=== PATIENT | female | born 1960 | race Caucasian/White ===

== ENCOUNTER 2017-07-19 11:34 | Emergency (ER) | payer BC ==
--- NOTE | 2017-07-19 12:03 | EDM.PDOC ---
ED HPI GENERAL MEDICAL PROBLEM - General Chief Complaint: Back Pain or Injury Stated Complaint: PAIN LEFT LOWER BACK Time Seen by Provider: 07/19/17 12:02 Source of Information: Reports: Patient - History of Present Illness INITIAL COMMENTS - FREE TEXT/NARRATIVE: HISTORY AND PHYSICAL: History of present illness: [Patient presents with left flank pain that began last night radiating to the pelvis she rates 8 out of 10 times upon arrival to the ER it is improved to a 4 out of 10 and she is in no distress no fever nausea vomiting chills sweats Patient relates these symptoms to a colon cleanse that she has taken which is supposedly known to cause back pain however she has full range of motion of her spine able to touch her toes without discomfort she is tender on the left flank with kidney punch being positive No fever nausea vomiting chills sweats no chest pain shortness breath headache dizziness palpitation no bowel or urine symptoms ] Review of systems: As per history of present illness and below otherwise all systems reviewed and negative. Past medical history: As per history of present illness and as reviewed below otherwise noncontributory. Surgical history: As per history of present illness and as reviewed below otherwise noncontributory. Social history: No reported history of drug or alcohol abuse. Family history: As per history of present illness and as reviewed below otherwise noncontributory. Physical exam: HEENT: Atraumatic, normocephalic, pupils reactive, negative for conjunctival pallor or scleral icterus, mucous membranes moist, throat clear, neck supple, nontender, trachea midline. Lungs: Clear to auscultation, breath sounds equal bilaterally, chest nontender. Heart: S1S2, regular, negative for clicks, rubs, or JVD. Abdomen: Soft, nondistended, nontender. Negative for masses or hepatosplenomegaly. Negative for costovertebral tenderness on the right however on the left kidney punch is positive. Pelvis: Stable nontender. Genitourinary: Deferred. Rectal: Deferred. Extremities: Atraumatic, negative for cords or calf pain. Neurovascular unremarkable. Neuro: Awake, alert, oriented. Cranial nerves II through XII unremarkable. Cerebellum unremarkable. Motor and sensory unremarkable throughout. Exam nonfocal. Diagnostics: []UA CBC CMP troponin amylase lipase, urine cultures pending Therapeutics: []1 L normal saline bolus Zofran 8 mg IV Toradol 30 mg IV Macrobid--empiric Toradol Impression: []Hematuria without other signs of urinary tract infection Left flank pain Definitive disposition and diagnosis as appropriate pending reevaluation and review of above. Left Lower Back Pain Score (Numeric/FACES): 5 - Related Data Allergies Allergy/AdvReac Type Severity Reaction Status Date / Time No Known Allergies Allergy Verified 07/19/17 11:50 Home Meds: Home Meds Esomeprazole Magnesium [Nexium] 40 mg PO DAILY 04/20/16 [History] Venlafaxine HCl [Venlafaxine ER] 75 mg PO DAILY 04/20/16 [History] Past Medical History Cardiovascular History: Reports: High Cholesterol Gastrointestinal History: Reports: GERD Psychiatric History: Reports: Depression - Infectious Disease History Infectious Disease History: Reports: Chicken Pox, Measles, Mumps - Past Surgical History GI Surgical History: Reports: Cholecystectomy Social & Family History - Family History Family Medical History: Noncontributory - Tobacco Use Smoking Status *Q: Never Smoker Second Hand Smoke Exposure: No - Alcohol Use Days Per Week of Alcohol Use: 0 - Recreational Drug Use Recreational Drug Use: No ED ROS GENERAL - Review of Systems Review Of Systems: ROS reveals no pertinent complaints other than HPI. ED EXAM, GENERAL - Physical Exam Exam: See Below Course - Vital Signs Last Recorded V/S: Last Vital Signs Temp 36.8 C 07/19/17 11:47 Pulse 85 07/19/17 14:30 Resp 16 07/19/17 14:30 BP 174/103 H 07/19/17 14:30 Pulse Ox 98 07/19/17 14:30 - Orders/Labs/Meds Orders: Active Orders 24 hr Category Date Time Status CULTURE URINE [RM] Stat Lab 07/19/17 12:05 Received Labs: Laboratory Tests 07/19/17 07/19/17 07/19/17 Range/Units 12:05 12:05 12:30 WBC 5.45 (4.0-11.0) K/uL RBC 4.94 (4.30-5.90) M/uL Hgb 14.4 (12.0-16.0) g/dL Hct 42.0 (36.0-46.0) % MCV 85.0 (80.0-98.0) fL MCH 29.1 (27.0-32.0) pg MCHC 34.3 (31.0-37.0) g/dL RDW Std Deviation 44.0 (28.0-62.0) fl RDW Coeff of Uday 14 (11.0-15.0) % Plt Count 280 (150-400) K/uL MPV 9.80 (7.40-12.00) fL Neut % (Auto) 56.7 (48.0-80.0) % Lymph % (Auto) 32.8 (16.0-40.0) % [place] % (Auto) 8.1 (0.0-15.0) % Eos % (Auto) 1.7 (0.0-7.0) % Baso % (Auto) 0.7 (0.0-1.5) % Neut # (Auto) 3.1 (1.4-5.7) K/uL Lymph # (Auto) 1.8 (0.6-2.4) K/uL [place] # (Auto) 0.4 (0.0-0.8) K/uL Eos # (Auto) 0.1 (0.0-0.7) K/uL Baso # (Auto) 0.0 (0.0-0.1) K/uL Nucleated RBC % 0.0 /100WBC Nucleated RBCs # 0 K/uL Sodium (136-146) mmol/L Potassium (3.5-5.1) mmol/L Chloride (98-110) mmol/L Carbon Dioxide (21-31) mmol/L BUN (6.0-23.0) mg/dL Creatinine (0.6-1.5) mg/dL Est Cr Clr Drug Dosing mL/min Estimated GFR (MDRD) ml/min Glucose (60-110) mg/dL Calcium (8.8-10.8) mg/dL Total Bilirubin (0.1-1.5) mg/dL AST (5-40) IU/L ALT (8-54) IU/L Alkaline Phosphatase (40-150) Troponin I (0.0-0.29) NG/ML Total Protein (6.0-8.0) g/dL Albumin (3.5-5.0) g/dL Globulin (2.0-3.5) g/dL Albumin/Globulin Ratio (1.3-2.8) Amylase (10-90) U/L Lipase (7-80) U/L Urine Color YELLOW Urine Appearance CLEAR Urine pH 5.5 (5.0-8.0) Ur Specific [place] 1.025 (1.001-1.035) Urine Protein NEGATIVE (NEGATIVE) mg/dL Urine Glucose (UA) NEGATIVE (NEGATIVE) mg/dL Urine Ketones NEGATIVE (NEGATIVE) mg/dL Urine Occult Blood TRACE-INTACT (NEGATIVE) Urine Nitrite NEGATIVE (NEGATIVE) Urine Bilirubin NEGATIVE (NEGATIVE) Urine Urobilinogen 0.2 (<2.0) EU/dL Ur Leukocyte Esterase NEGATIVE (NEGATIVE) Urine RBC 0-3 (0-2/HPF) Urine WBC 0-2 (0-5/HPF) Ur Epithelial Cells RARE (NONE-FEW) Urine Bacteria RARE (NEGATIVE) Urine HCG, Qual NEGATIVE (NEGATIVE) 07/19/17 Range/Units 12:30 WBC (4.0-11.0) K/uL RBC (4.30-5.90) M/uL Hgb (12.0-16.0) g/dL Hct (36.0-46.0) % MCV (80.0-98.0) fL MCH (27.0-32.0) pg MCHC (31.0-37.0) g/dL RDW Std Deviation (28.0-62.0) fl RDW Coeff of Uday (11.0-15.0) % Plt Count (150-400) K/uL MPV (7.40-12.00) fL Neut % (Auto) (48.0-80.0) % Lymph % (Auto) (16.0-40.0) % [place] % (Auto) (0.0-15.0) % Eos % (Auto) (0.0-7.0) % Baso % (Auto) (0.0-1.5) % Neut # (Auto) (1.4-5.7) K/uL Lymph # (Auto) (0.6-2.4) K/uL [place] # (Auto) (0.0-0.8) K/uL Eos # (Auto) (0.0-0.7) K/uL Baso # (Auto) (0.0-0.1) K/uL Nucleated RBC % /100WBC Nucleated RBCs # K/uL Sodium 142 (136-146) mmol/L Potassium 3.9 (3.5-5.1) mmol/L Chloride 108 (98-110) mmol/L Carbon Dioxide 24 (21-31) mmol/L BUN 16 (6.0-23.0) mg/dL Creatinine 0.9 (0.6-1.5) mg/dL Est Cr Clr Drug Dosing 57.05 mL/min Estimated GFR (MDRD) > 60.0 ml/min Glucose 96 (60-110) mg/dL Calcium 9.9 (8.8-10.8) mg/dL Total Bilirubin 0.7 (0.1-1.5) mg/dL AST 24 (5-40) IU/L ALT 28 (8-54) IU/L Alkaline Phosphatase 99 (40-150) Troponin I < 0.10 (0.0-0.29) NG/ML Total Protein 7.5 (6.0-8.0) g/dL Albumin 4.4 (3.5-5.0) g/dL Globulin 3.1 (2.0-3.5) g/dL Albumin/Globulin Ratio 1.4 (1.3-2.8) Amylase 45 (10-90) U/L Lipase 18 (7-80) U/L Urine Color Urine Appearance Urine pH (5.0-8.0) Ur Specific [place] (1.001-1.035) Urine Protein (NEGATIVE) mg/dL Urine Glucose (UA) (NEGATIVE) mg/dL Urine Ketones (NEGATIVE) mg/dL Urine Occult Blood (NEGATIVE) Urine Nitrite (NEGATIVE) Urine Bilirubin (NEGATIVE) Urine Urobilinogen (<2.0) EU/dL Ur Leukocyte Esterase (NEGATIVE) Urine RBC (0-2/HPF) Urine WBC (0-5/HPF) Ur Epithelial Cells (NONE-FEW) Urine Bacteria (NEGATIVE) Urine HCG, Qual (NEGATIVE) Meds: Medications Discontinued Medications Generic Name Dose Route Start Last Admin Trade Name Freq PRN Reason Stop Dose Admin Sodium Chloride 1,000 mls @ 999 mls/hr 07/19/17 12:21 07/19/17 12:52 Normal Saline IV 07/19/17 13:21 999 mls/hr STAT ONE Administration Iopamidol 83 ml 07/19/17 13:44 07/19/17 13:45 Isovue Multipack-370 (76%) IVPUSH 07/19/17 13:45 83 ml ONETIME STA Administration Ketorolac Tromethamine 30 mg 07/19/17 12:21 07/19/17 12:52 Toradol IVPUSH 07/19/17 12:22 30 mg ONETIME ONE Administration Ondansetron HCl 8 mg 07/19/17 12:21 07/19/17 12:52 Zofran IVPUSH 07/19/17 12:22 8 mg ONETIME ONE Administration Departure - Departure Time of Disposition: 14:43 Disposition: Home, Self-Care 01 Condition: Good Clinical Impression: Hematuria - Discharge Information Referrals: Ortega Mcmillan MD [Primary Care Provider] - Forms: ED Department Discharge Additional Instructions: Medication as prescribed Macrobid is an antibiotic used for urinary tract infection Toradol his pain medicine to be used only as needed up to 3 times daily for 5 days Return if symptoms persist or worsen or fever nausea vomiting chills sweats despite antibiotic Follow-up with primary care in 2 weeks sooner as needed Urine culture is pending at this time and will likely be available Saturday or Saturday [facility] [address] [place] [address] The following information is given to patients seen in the emergency department who are being discharged to home. This information is to outline your options for follow-up care. We provide all patients seen in our emergency department with a follow-up referral. The need for follow-up, as well as the timing and circumstances, are variable depending upon the specifics of your emergency department visit. If you don't have a primary care physician on staff, we will provide you with a referral. We always advise you to contact your personal physician following an emergency department visit to inform them of the circumstance of the visit and for follow-up with them and/or the need for any referrals to a consulting specialist. The emergency department will also refer you to a specialist when appropriate. This referral assures that you have the opportunity for follow-up care with a specialist. All of these measure are taken in an effort to provide you with optimal care, which includes your follow-up. Under all circumstances we always encourage you to contact your private physician who remains a resource for coordinating your care. When calling for follow-up care, please make the office aware that this follow-up is from your recent emergency room visit. If for any reason you are refused follow-up, please contact the [facility] emergency department at and asked to speak to the emergency department charge nurse. - My Orders Last 24 Hours: My Active Orders 07/19/17 12:05 CULTURE URINE [RM] Stat - Assessment/Plan Last 24 Hours: My Active Orders 07/19/17 12:05 CULTURE URINE [RM] Stat
[2017-07-19] MEDS ORDERED: Sodium Chloride 0.9% 1,000 ML IV ONE (12:21)
[2017-07-19] MEDS ORDERED: Ketorolac 30 MG/ML SDV IVPUSH ONE (12:21)
[2017-07-19] MEDS ORDERED: Ondansetron 4 MG/2 ML SDV IVPUSH ONE (12:21)
[2017-07-19 13:06] LABS: CHLORIDE,CL 108 mmol/L (98-110); SODIUM,NA 142 mmol/L (136-146)
[2017-07-19] MEDS ORDERED: Iopamidol 755 MG/ML 500 ML Multipack Bottle IVPUSH STA (13:44)
--- NOTE | 2017-07-19 14:26 | CT ---
CT of the abdomen and pelvis with and without contrast. HISTORY: Pain TECHNIQUE: Axial CT images were obtained of the abdomen and pelvis before and following administratio n of 83 mL of Isovue-370 in the left antecubital fossa without complication. Coronal and sagittal rec onstructions obtained. FINDINGS: The lung bases are clear, no pleural effusion. There is mild focal fatty infiltration near the falciform ligament. The liver, spleen, and adrenal gl ands otherwise appear normal. Pancreas is unremarkable. Cholecystectomy clips are noted with a mild p rominence of the common hepatic duct. The kidneys enhance and function symmetrically without evidence of obstructive uropathy. The large and small bowel are normal in caliber without evidence of obstruction. No focal pericolonic inflammation or stranding. The appendix is normal. The urinary bladder is normal. No bulky pelvic ly mphadenopathy or free pelvic fluid. No suspicious osseous abnormalities identified. IMPRESSION: 1. No acute findings demonstrated within the abdomen or pelvis.
[2017-07-19 14:44] VITALS: BP 119/68
== END 2017-07-19 15:05 | disposition home or self-care (01) ==
LOC: MW.ED 11:34
DX: R31.9 Hematuria, unspecified (principal); R10.9 Unspecified abdominal pain; Z79.899 Other long term (current) drug therapy
CPT/HCPCS: 36415; 74178; 80053; 81001; 81025; 82150; 83690; 84484; 85025; 87086; 96361; 96374; 96375; 99284; J1885; J2405; J7040; Q9967

== ENCOUNTER 2019-04-10 13:42 | Emergency (ER) | payer BC ==
--- NOTE | 2019-04-10 13:58 | EDM.PDOC ---
ED HPI GENERAL MEDICAL PROBLEM - General Chief Complaint: General Stated Complaint: PELVIC PAIN Time Seen by Provider: 04/10/19 13:58 Source of Information: Reports: Patient History Limitations: Reports: No Limitations - History of Present Illness INITIAL COMMENTS - FREE TEXT/NARRATIVE: HISTORY AND PHYSICAL: History of present illness: Patient is a 58-year-old female presents to the ED with complaint of pelvic pain. She states she's had a nagging pain for a couple of weeks and yesterday became more significant. She went to [facility] and had a normal UA and negative noncontrast abdomen/pelvis CT. Surgical history includes hysterectomy, bilateral oophorectomy, mesh bladder sling, and cholecystectomy. Review of systems: As per history of present illness and below otherwise all systems reviewed and negative. Past medical history: As per history of present illness and as reviewed below otherwise noncontributory. Surgical history: As per history of present illness and as reviewed below otherwise noncontributory. Social history: No reported history of drug or alcohol abuse. Family history: As per history of present illness and as reviewed below otherwise noncontributory. Physical exam: General: Patient sitting comfortably in no acute distress and nontoxic appearing HEENT: Atraumatic, normocephalic, pupils reactive, negative for conjunctival pallor or scleral icterus, mucous membranes moist, throat clear, neck supple, nontender, trachea midline. No meningeal signs. Lungs: Clear to auscultation, breath sounds equal bilaterally, chest nontender. Heart: S1S2, regular, negative for clicks, rubs, or overt murmur. Abdomen: Suprapubic and RLQ tenderness to palpation. Soft, nondistended. Negative for masses or hepatosplenomegaly. Negative for costovertebral tenderness. No rigidity, rebound, guarding. Pelvis: Stable nontender. Genitourinary: Deferred. Rectal: Deferred. Extremities: Atraumatic, negative for cords or calf pain. Neurovascular unremarkable.No pain with flexion, extension, internal/external rotation of the hip Neuro: Awake, alert, oriented. Cranial nerves II through XII unremarkable. Cerebellum unremarkable. Motor and sensory unremarkable throughout. Exam nonfocal. Notes: Diagnostics: CBC, CMP, UA, abdomen/pelvis ct w/o contrast, pelvic US Therapeutics: Toradol IV Prescriptions: tramadol Impression: abdominal pain Plan: alternate Tylenol and ibuprofen as needed.may take tramadol as needed for severe pain, do not take while driving as it may make you drowsy Follow up with primary care provider Return to ED as needed as discussed Definitive disposition and diagnosis as appropriate pending reevaluation and review of above. right groin area Pain Score (Numeric/FACES): 3 - Related Data Allergies Allergy/AdvReac Type Severity Reaction Status Date / Time No Known Allergies Allergy Verified 07/19/17 11:50 Home Meds: Home Meds Esomeprazole Magnesium [Nexium] 40 mg PO DAILY 04/20/16 [History] Venlafaxine HCl [Venlafaxine ER] 75 mg PO DAILY 04/20/16 [History] Simvastatin [Zocor] 40 mg PO BEDTIME 04/10/19 [History] Past Medical History Cardiovascular History: Reports: High Cholesterol Gastrointestinal History: Reports: GERD Other Genitourinary History: bladder surgery Psychiatric History: Reports: Depression - Infectious Disease History Infectious Disease History: Reports: Chicken Pox, Mononucleosis - Past Surgical History GI Surgical History: Reports: Cholecystectomy Female Surgical History: Reports: Hysterectomy Social & Family History - Family History Family Medical History: Noncontributory - Tobacco Use Smoking Status *Q: Never Smoker - Caffeine Use Caffeine Use: Reports: Coffee, Tea - Recreational Drug Use Recreational Drug Use: No ED ROS GENERAL - Review of Systems Review Of Systems: ROS reveals no pertinent complaints other than HPI. ED EXAM, GENERAL - Physical Exam Exam: See Below (see dictation) Course - Vital Signs Last Recorded V/S: Last Vital Signs Temp 97.3 F 04/10/19 13:50 Pulse 85 04/10/19 13:50 Resp 18 04/10/19 13:50 BP 136/77 04/10/19 13:50 Pulse Ox 95 04/10/19 13:50 - Orders/Labs/Meds Orders: Active Orders 24 hr Category Date Time Status Sodium Chloride 0.9% [Saline Flush] Med 04/10/19 14:10 Active 10 ml FLUSH ASDIRECTED PRN Sodium Chloride 0.9% [Saline Flush] Med 04/10/19 14:10 Active 2.5 ml FLUSH ASDIRECTED PRN Saline Lock Insert [OM.PC] Stat Oth 04/10/19 14:10 Ordered Medication Orders Sodium Chloride (Saline Flush) 10 ml FLUSH ASDIRECTED PRN PRN Reason: Keep Vein Open Sodium Chloride (Saline Flush) 2.5 ml FLUSH ASDIRECTED PRN PRN Reason: Keep Vein Open Labs: Laboratory Tests 04/10/19 04/10/19 04/10/19 Range/Units 14:20 14:20 16:25 WBC 7.73 (4.0-11.0) K/uL RBC 4.76 (4.30-5.90) M/uL Hgb 11.2 L (12.0-16.0) g/dL Hct 36.5 (36.0-46.0) % MCV 76.7 L (80.0-98.0) fL MCH 23.5 L (27.0-32.0) pg MCHC 30.7 L (31.0-37.0) g/dL RDW Std Deviation 46.7 (28.0-62.0) fl RDW Coeff of Uday 17 H (11.0-15.0) % Plt Count 271 (150-400) K/uL MPV 10.00 (7.40-12.00) fL Neut % (Auto) 67.1 (48.0-80.0) % Lymph % (Auto) 19.7 (16.0-40.0) % [place] % (Auto) 10.6 (0.0-15.0) % Eos % (Auto) 2.2 (0.0-7.0) % Baso % (Auto) 0.4 (0.0-1.5) % Neut # (Auto) 5.2 (1.4-5.7) K/uL Lymph # (Auto) 1.5 (0.6-2.4) K/uL [place] # (Auto) 0.8 (0.0-0.8) K/uL Eos # (Auto) 0.2 (0.0-0.7) K/uL Baso # (Auto) 0.0 (0.0-0.1) K/uL Nucleated RBC % 0.0 /100WBC Nucleated RBCs # 0 K/uL Sodium 141 (136-145) mmol/L Potassium 4.2 (3.5-5.1) mmol/L Chloride 104 (98-107) mmol/L Carbon Dioxide 27.5 (21.0-32.0) mmol/L BUN 17 (7.0-18.0) mg/dL Creatinine 0.8 (0.6-1.0) mg/dL Est Cr Clr Drug Dosing 63.41 mL/min Estimated GFR (MDRD) > 60.0 ml/min Glucose 101 (74-106) mg/dL Calcium 9.4 (8.5-10.1) mg/dL Total Bilirubin 0.4 (0.2-1.0) mg/dL AST 31 (15-37) IU/L ALT 54 (14-63) IU/L Alkaline Phosphatase 126 H (46-116) U/L Total Protein 7.6 (6.4-8.2) g/dL Albumin 3.8 (3.4-5.0) g/dL Globulin 3.8 (2.6-4.0) g/dL Albumin/Globulin Ratio 1.0 (0.9-1.6) Urine Color YELLOW Urine Appearance CLEAR Urine pH 5.0 (5.0-8.0) Ur Specific [place] 1.015 (1.001-1.035) Urine Protein NEGATIVE (NEGATIVE) mg/dL Urine Glucose (UA) NEGATIVE (NEGATIVE) mg/dL Urine Ketones NEGATIVE (NEGATIVE) mg/dL Urine Occult Blood NEGATIVE (NEGATIVE) Urine Nitrite NEGATIVE (NEGATIVE) Urine Bilirubin NEGATIVE (NEGATIVE) Urine Urobilinogen 0.2 (<2.0) EU/dL Ur Leukocyte Esterase NEGATIVE (NEGATIVE) Meds: Medications Generic Name Dose Route Start Last Admin Trade Name Freq PRN Reason Stop Dose Admin Sodium Chloride 10 ml 04/10/19 14:10 Saline Flush FLUSH ASDIRECTED PRN Keep Vein Open Sodium Chloride 2.5 ml 04/10/19 14:10 Saline Flush FLUSH ASDIRECTED PRN Keep Vein Open Discontinued Medications Generic Name Dose Route Start Last Admin Trade Name Freq PRN Reason Stop Dose Admin Ketorolac Tromethamine 30 mg 04/10/19 14:10 04/10/19 14:24 Toradol IVPUSH 04/10/19 14:11 30 mg ONETIME ONE Administration Departure - Departure Time of Disposition: 18:56 Disposition: Home, Self-Care 01 Condition: Good Clinical Impression: Abdominal pain - Discharge Information Referrals: PCP,None [Primary Care Provider] - Forms: ED Department Discharge Additional Instructions: The following information is given to patients seen in the emergency department who are being discharged to home. This information is to outline your options for follow-up care. We provide all patients seen in our emergency department with a follow-up referral. The need for follow-up, as well as the timing and circumstances, are variable depending upon the specifics of your emergency department visit. If you don't have a primary care physician on staff, we will provide you with a referral. We always advise you to contact your personal physician following an emergency department visit to inform them of the circumstance of the visit and for follow-up with them and/or the need for any referrals to a consulting specialist. The emergency department will also refer you to a specialist when appropriate. This referral assures that you have the opportunity for follow-up care with a specialist. All of these measure are taken in an effort to provide you with optimal care, which includes your follow-up. Under all circumstances we always encourage you to contact your private physician who remains a resource for coordinating your care. When calling for follow-up care, please make the office aware that this follow-up is from your recent emergency room visit. If for any reason you are refused follow-up, please contact the [facility] Emergency Department at and asked to speak to the emergency department charge nurse. [facility] [address] [place] [address] [address] alternate Tylenol and ibuprofen as needed.may take tramadol as needed for severe pain, do not take while driving as it may make you drowsy Follow up with primary care provider Return to ED as needed as discussed - My Orders Last 24 Hours: My Active Orders 04/10/19 14:10 Sodium Chloride 0.9% [Saline Flush] 10 ml FLUSH ASDIRECTED PRN Sodium Chloride 0.9% [Saline Flush] 2.5 ml FLUSH ASDIRECTED PRN Saline Lock Insert [OM.PC] Stat - Assessment/Plan Last 24 Hours: My Active Orders 07/26/19 14:10 Sodium Chloride 0.9% [Saline Flush] 10 ml FLUSH ASDIRECTED PRN Sodium Chloride 0.9% [Saline Flush] 2.5 ml FLUSH ASDIRECTED PRN Saline Lock Insert [OM.PC] Stat
[2019-04-10] MEDS ORDERED: Ketorolac 30 MG/ML SDV IVPUSH ONE (14:10)
[2019-04-10] MEDS ORDERED: Sodium Chloride 0.9% 10 ML Syringe FLUSH PRN (14:10)
[2019-04-10] MEDS ORDERED: Sodium Chloride 0.9% 2.5 ML Syringe FLUSH PRN (14:10)
[2019-04-10 14:52] LABS: CHLORIDE,CL 104 mmol/L (98-107); SODIUM,NA 141 mmol/L (136-145)
--- NOTE | 2019-04-10 16:27 | CT ---
INDICATION: Right lower quadrant pain TECHNIQUE: CT abdomen and pelvis acquired with 100 cc Isovue 370 IV contrast. COMPARISON: July 19, 2017 FINDINGS: Lower chest: Unremarkable. Liver: Hepatic steatosis. Spleen: Unremarkable. Pancreas: Unremarkable. Gallbladder and bile ducts: S/p cholecystectomy. Adrenal glands: Unremarkable. Kidneys: Unremarkable. GI tract: Unremarkable. Appendix is not visualized but no inflammatory changes are seen in the pericecal region. The terminal ileum is normal. Vascular structures: Unremarkable. Lymph nodes: Unremarkable. Miscellaneous: Unremarkable. No free air or significant free fluid. Pelvic Organs: Status post hysterectomy. Bones: Unremarkable for age. IMPRESSION: No etiology seen to explain right lower quadrant pain. Note that the appendix is not visualized but no inflammatory changes are seen in the right lower quadrant. Hepatic steatosis. Status post cholecystectomy and hysterectomy. Please note that all CT scans at this facility use dose modulation, iterative reconstruction, and/or weight-based dosing when appropriate to reduce radiation dose to as low as reasonably achievable. Dictated by Tatyana Whitt MD @ Apr 10 2019 4:18PM Signed by Dr. Tatyana Whitt @ Apr 10 2019 4:25PM
--- NOTE | 2019-04-10 18:50 | US ---
Indication: Pain in the right groin and pubic symphysis Technique: Multiple sonographic images of the inguinal and parasymphyseal soft tissues. Comparison: A CT scan from the same date Findings: No discrete soft tissue abnormality or fluid collection are seen in the symphyseal or right inguinal regions. No discrete hernia is visualized. Impression: No discrete abnormality seen. Dictated by Noe Mcelroy MD @ 04/10/2019 6:47:07 PM Dictated by: Noe Mcelroy MD @ 04/10/2019 18:48:51 (Electronically Signed)
[2019-04-10 19:12] VITALS: BP 135/79
== END 2019-04-10 19:10 | disposition home or self-care (01) ==
LOC: MW.ED 13:42
DX: R10.31 Right lower quadrant pain (principal); R10.2 Pelvic and perineal pain; F32.9 Major depressive disorder, single episode, unspecified; Z79.899 Other long term (current) drug therapy; Z90.49 Acquired absence of other specified parts of digestive tract; Z90.710 Acquired absence of both cervix and uterus
CPT/HCPCS: 36415; 74177; 76856; 80053; 81003; 85025; 96374; 99284; J1885

== ENCOUNTER 2019-04-11 18:30 | Emergency (ER) | payer BC ==
[2019-04-11] MEDS ORDERED: Sodium Chloride 0.9% 1,000 ML IV ONE ×2 (18:58→19:19)
[2019-04-11] MEDS ORDERED: Ondansetron 4 MG/2 ML SDV IVPUSH ONE (19:19)
[2019-04-11] MEDS ORDERED: Morphine 2 MG/ML Syringe IVPUSH ONE (19:19)
[2019-04-11 19:28] LABS: CHLORIDE,CL 104 mmol/L (98-107); SODIUM,NA 141 mmol/L (136-145)
--- NOTE | 2019-04-11 20:01 | EDM.PDOC ---
ED HPI GENERAL MEDICAL PROBLEM - General Chief Complaint: Abdominal Pain Stated Complaint: ABDOMINAL PAIN Time Seen by Provider: 04/11/19 19:04 - History of Present Illness INITIAL COMMENTS - FREE TEXT/NARRATIVE: HISTORY AND PHYSICAL: History of present illness: Patient is 58-year-old white female with past medical history includes prior cholecystectomy and hysterectomy was been seen multiple times for right groin pain and has had diagnostics including ultrasound and CT of her abdomen etiology remains unclear vital signs on multiple visits as well as routine labs including UA have been nondiagnostic. He denies trauma or other concern on arrival tonight her pain is worse with movement of that right hip. Review of systems: As per history of present illness and below otherwise all systems reviewed and negative. Past medical history: As per history of present illness and as reviewed below otherwise noncontributory. Surgical history: As per history of present illness and as reviewed below otherwise noncontributory. Social history: No reported history of drug or alcohol abuse. Family history: As per history of present illness and as reviewed below otherwise noncontributory. Physical exam: HEENT: Atraumatic, normocephalic, pupils reactive, negative for conjunctival pallor or scleral icterus, mucous membranes moist, throat clear, neck supple, nontender, trachea midline. Lungs: Clear to auscultation, breath sounds equal bilaterally, chest nontender. Heart: S1S2, regular, negative for clicks, rubs, or JVD. Abdomen: Soft, nondistended, nontender. Negative for masses or hepatosplenomegaly. Negative for costovertebral tenderness. Pelvis: Stable nontender. Genitourinary: Deferred. Rectal: Deferred. Extremities: Patient has significant pain with flexion-extension internal and external rotation of the right hip there is no erythema or warmth" neurovascular exam is unremarkable Neuro: Awake, alert, oriented. Cranial nerves II through XII unremarkable. Cerebellum unremarkable. Motor and sensory unremarkable throughout. Exam nonfocal. Diagnostics: CBC CMP UA ESR CRP CT right hip with contrast Therapeutics: Saline 1 L bolus morphine sulfate 2 mg IV Zofran Impression: #1 chronic intermittent right groin/hip pain etiology to be determined Definitive disposition and diagnosis as appropriate pending reevaluation and review of above. Groin Pain Score (Numeric/FACES): 10 - Related Data Allergies Allergy/AdvReac Type Severity Reaction Status Date / Time No Known Allergies Allergy Verified 04/11/19 18:45 Home Meds: Home Meds Esomeprazole Magnesium [Nexium] 40 mg PO DAILY 04/20/16 [History] Venlafaxine HCl [Venlafaxine ER] 75 mg PO DAILY 04/20/16 [History] Simvastatin [Zocor] 40 mg PO BEDTIME 04/10/19 [History] Past Medical History Cardiovascular History: Reports: High Cholesterol Gastrointestinal History: Reports: GERD Other Genitourinary History: bladder surgery Psychiatric History: Reports: Depression - Infectious Disease History Infectious Disease History: Reports: Chicken Pox, Mononucleosis - Past Surgical History GI Surgical History: Reports: Cholecystectomy Female Surgical History: Reports: Hysterectomy Social & Family History - Family History Family Medical History: Noncontributory - Tobacco Use Smoking Status *Q: Never Smoker - Caffeine Use Caffeine Use: Reports: Coffee, Tea - Recreational Drug Use Recreational Drug Use: No ED ROS GENERAL - Review of Systems Review Of Systems: ROS reveals no pertinent complaints other than HPI. ED EXAM, GENERAL - Physical Exam Exam: See Below (See dictation) Course - Vital Signs Last Recorded V/S: Last Vital Signs Temp 36.1 C 04/11/19 18:43 Pulse 78 04/11/19 21:15 Resp 18 04/11/19 21:15 BP 129/76 04/11/19 21:15 Pulse Ox 97 04/11/19 21:15 - Orders/Labs/Meds Orders: Active Orders 24 hr Category Date Time Status CULTURE BLOOD [BC] Stat Lab 04/11/19 19:33 Received CULTURE BLOOD [BC] Stat Lab 04/11/19 19:33 Received Blood Culture x2 Reflex Set [OM.PC] Stat Oth 04/11/19 19:16 Ordered Labs: Laboratory Tests 04/11/19 04/11/19 04/11/19 Range/Units 14:20 14:20 18:45 WBC 8.66 (4.0-11.0) K/uL RBC 5.01 (4.30-5.90) M/uL Hgb 12.0 (12.0-16.0) g/dL Hct 38.6 (36.0-46.0) % MCV 77.0 L (80.0-98.0) fL MCH 24.0 L (27.0-32.0) pg MCHC 31.1 (31.0-37.0) g/dL RDW Std Deviation 47.0 (28.0-62.0) fl RDW Coeff of Uday 17 H (11.0-15.0) % Plt Count 345 (150-400) K/uL MPV 10.30 (7.40-12.00) fL Neut % (Auto) 53.7 (48.0-80.0) % Lymph % (Auto) 33.9 (16.0-40.0) % Kemper % (Auto) 9.8 (0.0-15.0) % Eos % (Auto) 2.0 (0.0-7.0) % Baso % (Auto) 0.6 (0.0-1.5) % Neut # (Auto) 4.7 (1.4-5.7) K/uL Lymph # (Auto) 2.9 H (0.6-2.4) K/uL Kemper # (Auto) 0.9 H (0.0-0.8) K/uL Eos # (Auto) 0.2 (0.0-0.7) K/uL Baso # (Auto) 0.1 (0.0-0.1) K/uL Nucleated RBC % 0.0 /100WBC Nucleated RBCs # 0 K/uL ESR 17 (0-29) mm/hr Sodium (136-145) mmol/L Potassium (3.5-5.1) mmol/L Chloride (98-107) mmol/L Carbon Dioxide (21.0-32.0) mmol/L BUN (7.0-18.0) mg/dL Creatinine (0.6-1.0) mg/dL Est Cr Clr Drug Dosing mL/min Estimated GFR (MDRD) ml/min Glucose (74-106) mg/dL Calcium (8.5-10.1) mg/dL Total Bilirubin (0.2-1.0) mg/dL AST (15-37) IU/L ALT (14-63) IU/L Alkaline Phosphatase (46-116) U/L C-Reactive Protein 1.80 H (0.00-0.90) mg/dL Total Protein (6.4-8.2) g/dL Albumin (3.4-5.0) g/dL Globulin (2.6-4.0) g/dL Albumin/Globulin Ratio (0.9-1.6) 04/11/19 Range/Units 18:45 WBC (4.0-11.0) K/uL RBC (4.30-5.90) M/uL Hgb (12.0-16.0) g/dL Hct (36.0-46.0) % MCV (80.0-98.0) fL MCH (27.0-32.0) pg MCHC (31.0-37.0) g/dL RDW Std Deviation (28.0-62.0) fl RDW Coeff of Uday (11.0-15.0) % Plt Count (150-400) K/uL MPV (7.40-12.00) fL Neut % (Auto) (48.0-80.0) % Lymph % (Auto) (16.0-40.0) % Kemper % (Auto) (0.0-15.0) % Eos % (Auto) (0.0-7.0) % Baso % (Auto) (0.0-1.5) % Neut # (Auto) (1.4-5.7) K/uL Lymph # (Auto) (0.6-2.4) K/uL Kemper # (Auto) (0.0-0.8) K/uL Eos # (Auto) (0.0-0.7) K/uL Baso # (Auto) (0.0-0.1) K/uL Nucleated RBC % /100WBC Nucleated RBCs # K/uL ESR (0-29) mm/hr Sodium 141 (136-145) mmol/L Potassium 3.6 (3.5-5.1) mmol/L Chloride 104 (98-107) mmol/L Carbon Dioxide 26.3 (21.0-32.0) mmol/L BUN 15 (7.0-18.0) mg/dL Creatinine 0.9 (0.6-1.0) mg/dL Est Cr Clr Drug Dosing 53.89 mL/min Estimated GFR (MDRD) > 60.0 ml/min Glucose 161 H (74-106) mg/dL Calcium 8.9 (8.5-10.1) mg/dL Total Bilirubin 0.2 (0.2-1.0) mg/dL AST 25 (15-37) IU/L ALT 45 (14-63) IU/L Alkaline Phosphatase 142 H (46-116) U/L C-Reactive Protein (0.00-0.90) mg/dL Total Protein 7.9 (6.4-8.2) g/dL Albumin 3.8 (3.4-5.0) g/dL Globulin 4.1 H (2.6-4.0) g/dL Albumin/Globulin Ratio 0.9 (0.9-1.6) Meds: Medications Discontinued Medications Generic Name Dose Route Start Last Admin Trade Name Freq PRN Reason Stop Dose Admin Sodium Chloride 1,000 mls @ 999 mls/hr 04/11/19 18:58 04/11/19 19:18 Normal Saline IV 04/11/19 19:58 999 mls/hr STAT ONE Administration Sodium Chloride 1,000 mls @ 999 mls/hr 04/11/19 19:19 04/11/19 19:38 Normal Saline IV 04/11/19 20:19 Not Given STAT ONE Iopamidol 100 ml 04/11/19 20:22 04/11/19 21:10 Isovue-370 (76%) IVPUSH 04/11/19 20:23 100 ml ONETIME ONE Administration Morphine Sulfate 2 mg 04/11/19 19:19 04/11/19 19:30 Morphine IVPUSH 04/11/19 19:20 2 mg ONETIME ONE Administration Ondansetron HCl 4 mg 04/11/19 19:19 04/11/19 19:29 Zofran IVPUSH 04/11/19 19:20 4 mg ONETIME ONE Administration Departure - Departure Time of Disposition: 22:14 Disposition: Home, Self-Care 01 Condition: Good Clinical Impression: Groin pain, chronic, right, Hip pain - Discharge Information Referrals: Ortega Mcmillan MD [Primary Care Provider] - Forms: ED Department Discharge Additional Instructions: The following information is given to patients seen in the emergency department who are being discharged to home. This information is to outline your options for follow-up care. We provide all patients seen in our emergency department with a follow-up referral. The need for follow-up, as well as the timing and circumstances, are variable depending upon the specifics of your emergency department visit. If you don't have a primary care physician on staff, we will provide you with a referral. We always advise you to contact your personal physician following an emergency department visit to inform them of the circumstance of the visit and for follow-up with them and/or the need for any referrals to a consulting specialist. The emergency department will also refer you to a specialist when appropriate. This referral assures that you have the opportunity for followup care with a specialist. All of these measure are taken in an effort to provide you with optimal care, which includes your followup. Under all circumstances we always encourage you to contact your private physician who remains a resource for coordinating your care. When calling for followup care, please make the office aware that this follow-up is from your recent emergency room visit. If for any reason you are refused follow-up, please contact the [facility] emergency department at and asked to speak to the emergency department charge nurse. [facility] [address], [address] [place] [address] Follow-up primary medical doctor as discussed call to schedule routine appointment with orthopedic surgery above continue current medications and return as needed as discussed - My Orders Last 24 Hours: My Active Orders 04/11/19 19:16 Blood Culture x2 Reflex Set [OM.PC] Stat 04/11/19 19:33 CULTURE BLOOD [BC] Stat CULTURE BLOOD [BC] Stat - Assessment/Plan Last 24 Hours: My Active Orders 04/11/19 19:16 Blood Culture x2 Reflex Set [OM.PC] Stat 04/11/19 19:33 CULTURE BLOOD [BC] Stat CULTURE BLOOD [BC] Stat
[2019-04-11] MEDS ORDERED: Iopamidol 755 Mg/ML 100 ML Bottle IVPUSH ONE (20:22)
--- NOTE | 2019-04-11 21:51 | CT ---
Indication: Right hip and groin pain Technique: A right hip CT scan with intravenous contrast. 100 mL of Isovue 370 administered. Comparison: A CT scan of the abdomen and pelvis dated 04/10/2019 Findings: There is no evidence of an acute fracture or dislocation. There is a sclerotic lesion in the right femoral lesser trochanter which could represent a bone island. Small sclerotic foci in the sacral ala adjacent to the sacroiliac joints could be reactive. There is mild ill-defined sclerosis in the right pubis at the symphysis which may be reactive as well. No significant right hip joint effusion is seen. No abnormal regional enhancement is noted. There is a partially imaged fat attenuation structure in the medial left thigh musculature suggestive of a lipoma, although incompletely evaluated. Mildly decreased attenuation in the right superficial femoral vein could be related to contrast mixing. Within the pelvis, there is dependent increased density within the urinary bladder which may be related to residual excreted contrast from a prior administration. Post hysterectomy changes are seen. Impression: No evidence of an acute fracture or dislocation. No significant right hip joint effusion or abnormal regional enhancement seen. A partially imaged lipomatous lesion in the right thigh musculature, probably a lipoma, although incompletely evaluated. Follow-up, as clinically indicated. Increased dependent density within the bladder could be related to residual excreted contrast from a prior administration, however correlate with urinalysis. Decreased attenuation in the right SFV could be related to contrast mixing. If clinically indicated, consider sonographic evaluation. Dictated by Noe Mcelroy MD @ 04/11/2019 9:48:52 PM Please note that all CT scans at this facility use dose modulation, iterative reconstruction, and/or weight-based dosing when appropriate to reduce radiation dose to as low as reasonably achievable. Dictated by: Noe Mcelroy MD @ 04/11/2019 21:48:57 (Electronically Signed)
[2019-04-11 23:13] VITALS: BP 143/74
== END 2019-04-11 22:56 | disposition home or self-care (01) ==
LOC: MW.ED 18:30
DX: R10.31 Right lower quadrant pain (principal); M25.551 Pain in right hip; E78.00 Pure hypercholesterolemia, unspecified; G89.29 Other chronic pain; K21.9 Gastro-esophageal reflux disease without esophagitis; F32.9 Major depressive disorder, single episode, unspecified; Z79.899 Other long term (current) drug therapy
CPT/HCPCS: 36415; 73701; 80053; 85025; 85652; 86140; 87040; 96361; 96374; 96375; 99284; J2270; J2405; J7040; Q9967

== ENCOUNTER 2019-04-12 12:52 | Observation (INO) | payer BC ==
[2019-04-12] MEDS ORDERED: Sodium Chloride 0.9% 1,000 ML IV ONE (13:05)
[2019-04-12] MEDS ORDERED: Ondansetron 4 MG/2 ML SDV IVPUSH ONE (13:05)
--- NOTE | 2019-04-12 13:13 | EDM.PDOC ---
ED HPI GENERAL MEDICAL PROBLEM - General Chief Complaint: General Stated Complaint: INFECTION IN BLOOD Time Seen by Provider: 04/12/19 13:08 Source of Information: Reports: Patient History Limitations: Reports: No Limitations - History of Present Illness INITIAL COMMENTS - FREE TEXT/NARRATIVE: HISTORY AND PHYSICAL: History of present illness: Patient is a 58-year-old female who presents to the emergency room complaints of right groin and pelvic pain. She has been seen twice previous in our ER and had lab work, ultrasound and CT imaging without any definitive results. Blood cultures were obtained on 04/10/19 which grew gram-positive cocci in pairs. Patient was called this morning to see how she was feeling, she states she still had moderate to severe pain. She was encouraged to come to the emergency room for reevaluation and possible admission. Review of systems: As per history of present illness and below otherwise all systems reviewed and negative. Past medical history: As per history of present illness and as reviewed below otherwise noncontributory. Surgical history: As per history of present illness and as reviewed below otherwise noncontributory. Social history: See social history for further information Family history: As per history of present illness and as reviewed below otherwise noncontributory. Physical exam: General: Well-developed and well-nourished 58-year-old female. Alert and oriented. Nontoxic appearing and in no acute distress. HEENT: Atraumatic, normocephalic, pupils equal and reactive bilaterally, negative for conjunctival pallor or scleral icterus, mucous membranes moist, trachea midline. No drooling or trismus noted. No meningeal signs. No hot potato voice noted. Lungs: Clear to auscultation, breath sounds equal bilaterally, chest nontender. Heart: S1S2, regular rate and rhythm without overt murmur Abdomen: Soft, nondistended, nontender. Negative for masses. Negative for costovertebral tenderness. Pelvis: Stable nontender. Pain with palpation to left groin area. Skin: Intact, warm, dry. No lesions or rashes noted. Extremities: Atraumatic, moves all extremities per self without difficulty or deficits, negative for cords or calf pain. Neurovascular unremarkable. Neuro: Awake, alert, oriented. Cranial nerves II through XII unremarkable. Cerebellum unremarkable. Motor and sensory unremarkable throughout. Exam nonfocal. Notes: Patient states when she lays still and does not involve and any movement or activity the pain is manageable. As soon as she becomes active or ambulatory the pain is sharp and severe. She has been taking the prescribed tramadol and does get some relief with this. She denies any new injury, trauma or complaints since her previous 2 visits in the emergency room. He discussed the blood cultures being positive and keeping her for admission for further evaluation of her complaint today. She is agreeable and offers no further questions or concerns at this time. Currently declines the need for any pain medications, we' ll continue to monitor. Diagnostics: CBC, CMP, blood cultures 2 Therapeutics: IV fluid, Zofran, Rocephin Impression: Positive blood cultures Right hip pain Plan: Observation admission [facility] Definitive disposition and diagnosis as appropriate pending reevaluation and review of above. Right Groin Pain Score (Numeric/FACES): 2 - Related Data Allergies Allergy/AdvReac Type Severity Reaction Status Date / Time No Known Allergies Allergy Verified 04/12/19 12:56 Home Meds: Home Meds Esomeprazole Magnesium [Nexium] 40 mg PO DAILY 04/20/16 [History] Venlafaxine HCl [Venlafaxine ER] 75 mg PO DAILY 04/20/16 [History] Simvastatin [Zocor] 40 mg PO BEDTIME 04/10/19 [History] Past Medical History Cardiovascular History: Reports: High Cholesterol Gastrointestinal History: Reports: GERD Other Genitourinary History: bladder surgery Psychiatric History: Reports: Depression - Infectious Disease History Infectious Disease History: Reports: Chicken Pox, Mumps - Past Surgical History GI Surgical History: Reports: Cholecystectomy Female Surgical History: Reports: Hysterectomy Social & Family History - Family History Family Medical History: Noncontributory - Tobacco Use Smoking Status *Q: Never Smoker - Caffeine Use Caffeine Use: Reports: Coffee, Tea - Recreational Drug Use Recreational Drug Use: No ED ROS GENERAL - Review of Systems Review Of Systems: ROS reveals no pertinent complaints other than HPI. ED EXAM, GENERAL - Physical Exam Exam: See Below (See dictation) Course - Vital Signs Last Recorded V/S: Last Vital Signs Temp 97.1 F 04/12/19 12:57 Pulse 92 04/12/19 12:57 Resp 17 04/12/19 12:57 BP 122/69 04/12/19 12:57 Pulse Ox 90 L 04/12/19 12:57 - Orders/Labs/Meds Orders: Active Orders 24 hr Category Date Time Status CBC WITH AUTO DIFF [HEME] Stat Lab 04/12/19 13:04 Ordered COMPREHENSIVE METABOLIC PN,CMP [CHEM] Stat Lab 04/12/19 13:04 Ordered CULTURE BLOOD [BC] Stat Lab 04/12/19 13:04 Ordered CULTURE BLOOD [BC] Stat Lab 04/12/19 13:04 Ordered LACTIC ACID,WHOLE BLOOD [BG] Stat Lab 04/12/19 13:13 Ordered Sodium Chloride 0.9% [Normal Saline] 1,000 ml Med 04/12/19 13:05 Active IV STAT Blood Culture x2 Reflex Set [OM.PC] Stat Oth 04/12/19 13:04 Ordered Medication Orders Sodium Chloride (Normal Saline) 1,000 mls @ 125 mls/hr IV STAT ONE Stop: 04/12/19 21:04 Meds: Medications Generic Name Dose Route Start Last Admin Trade Name Freq PRN Reason Stop Dose Admin Sodium Chloride 1,000 mls @ 125 mls/hr 04/12/19 13:05 Normal Saline IV 04/12/19 21:04 STAT ONE Discontinued Medications Generic Name Dose Route Start Last Admin Trade Name Freq PRN Reason Stop Dose Admin Ondansetron HCl 4 mg 04/12/19 13:05 Zofran IVPUSH 04/12/19 13:06 ONETIME ONE Departure - Departure Time of Disposition: 13:18 Disposition: Refer to Observation Clinical Impression: Positive blood cultures, Right groin pain - Discharge Information Referrals: PCP,Unknown [Primary Care Provider] - Forms: ED Department Discharge - My Orders Last 24 Hours: My Active Orders 04/12/19 13:04 CBC WITH AUTO DIFF [HEME] Stat COMPREHENSIVE METABOLIC PN,CMP [CHEM] Stat CULTURE BLOOD [BC] Stat CULTURE BLOOD [BC] Stat Blood Culture x2 Reflex Set [OM.PC] Stat 04/12/19 13:05 Sodium Chloride 0.9% [Normal Saline] 1,000 ml IV STAT 04/12/19 13:13 LACTIC ACID,WHOLE BLOOD [BG] Stat - Assessment/Plan Last 24 Hours: My Active Orders 04/12/19 13:04 CBC WITH AUTO DIFF [HEME] Stat COMPREHENSIVE METABOLIC PN,CMP [CHEM] Stat CULTURE BLOOD [BC] Stat CULTURE BLOOD [BC] Stat Blood Culture x2 Reflex Set [OM.PC] Stat 04/12/19 13:05 Sodium Chloride 0.9% [Normal Saline] 1,000 ml IV STAT 04/12/19 13:13 LACTIC ACID,WHOLE BLOOD [BG] Stat
[2019-04-12] MEDS ORDERED: cefTRIAXone 1 GM in Premix Bag 1 BAG IV ONE (13:26)
[2019-04-12] MEDS ORDERED: Tenecteplase 50 MG Kit IV STA (13:27)
[2019-04-12 13:54] LABS: CARBON DIOXIDE,CO2 27.6 mmol/L (21.0-32.0); POTASSIUM,K 3.8 mmol/L (3.5-5.1)
--- NOTE | 2019-04-12 15:07 | PCM.HP ---
H&P History of Present Illness - General Date of Service: 04/12/19 Admit Problem/Dx: Hip pain, gram-positive cocci in chains bacteremia. - History of Present Illness Initial Comments - Free Text/Narative: The patient is a 58-year-old lady who had presented to the emergency department on April 10, 2019 out of concern for severe right hip pain. The patient at that time had blood cultures that were taken and was found to have gram-positive cocci in chains. The patient then was called back to the emergency department and was admitted for IV antibiotics. The patient has denied any dizziness or lightheadedness. No fever or chills. The patient says that she has severe to moderate pain in her right hip which is worsened by hip adduction. Interestingly , patient says that she is having pain that radiate down into her groin and in the area above her pubis bone. The patient 8 years ago had a bladder lift with surgical mesh. The patient has denied any urinary symptoms. Onset of Symptoms: Reports: Gradual Duration of Symptoms: Reports: Day(s): Location: Reports: Lower Extremity, Right Quality: Reports: Sharp, Stabbing, Throbbing Severity: Moderate Improves with: Reports: Medication Worsens with: Reports: Medication Context: Denies: Trauma Associated Symptoms: Reports: No Other Symptoms Right Groin Pain Score (Numeric/FACES): 2 - Related Data Allergies/Adverse Reactions: Allergies Allergy/AdvReac Type Severity Reaction Status Date / Time No Known Allergies Allergy Verified 04/12/19 12:56 Home Medications: Home Meds Esomeprazole Magnesium [Nexium] 40 mg PO DAILY 04/20/16 [History] Venlafaxine HCl [Venlafaxine ER] 75 mg PO DAILY 04/20/16 [History] Simvastatin [Zocor] 40 mg PO BEDTIME 04/10/19 [History] Past Medical History HEENT History: Reports: None Cardiovascular History: Reports: High Cholesterol Respiratory History: Reports: None Gastrointestinal History: Reports: GERD Other Genitourinary History: bladder surgery Musculoskeletal History: Reports: None Neurological History: Reports: None Psychiatric History: Reports: Depression Endocrine/Metabolic History: Reports: None Hematologic History: Reports: None Immunologic History: Reports: None Oncologic (Cancer) History: Reports: None Dermatologic History: Reports: None - Infectious Disease History Infectious Disease History: Reports: Chicken Pox, Mumps - Past Surgical History GI Surgical History: Reports: Cholecystectomy Female Surgical History: Reports: Hysterectomy Social & Family History - Family History Family Medical History: Noncontributory - Tobacco Use Smoking Status *Q: Never Smoker - Caffeine Use Caffeine Use: Reports: Coffee, Tea - Recreational Drug Use Recreational Drug Use: No - Living Situation & Occupation Living situation: Reports: , with Spouse Occupation: Retired H&P Review of Systems - Review of Systems: Review Of Systems: See Below General: Reports: No Symptoms HEENT: Reports: No Symptoms Pulmonary: Reports: No Symptoms Cardiovascular: Reports: No Symptoms Gastrointestinal: Reports: No Symptoms Genitourinary: Reports: No Symptoms Musculoskeletal: Reports: Joint Pain Skin: Reports: No Symptoms Psychiatric: Reports: No Symptoms Neurological: Reports: No Symptoms Hematologic/Lymphatic: Reports: No Symptoms Immunologic: Reports: No Symptoms Exam - Exam Exam: See Below - Vital Signs Vital Signs: Last Vital Signs Temp 36.3 C 04/12/19 14:22 Pulse 86 04/12/19 14:22 Resp 17 04/12/19 12:57 BP 137/71 04/12/19 14:22 Pulse Ox 88 L 04/12/19 14:22 Weight: 79.379 kg - Exam Quality Assessment: No: Supplemental Oxygen General: Alert, Oriented, Cooperative HEENT: Conjunctiva Clear, EACs Clear, EOMI, Hearing Intact, Mucosa Moist & [place] , Pupils Equal, PERRLA Neck: Supple, Trachea Midline Lungs: Clear to Auscultation, Normal Respiratory Effort Cardiovascular: Regular Rate, Regular Rhythm GI/Abdominal Exam: Normal Bowel Sounds, Soft, No Distention, Tender (Suprapubic , right groin area) Back Exam: Normal Inspection, Full Range of Motion Extremities: Normal Inspection, No Pedal Edema Skin: Warm, Dry, Intact Neurological: Cranial Nerves Intact Neuro Extensive - Motor, Sensory, Reflexes: CN II-XII Intact Psychiatric: Alert, Normal Affect, Normal Mood - Patient Data Lab Results Last 24 hrs: Laboratory Results - last 24 hr 04/12/19 04/12/19 04/12/19 Range/Units 13:15 13:15 13:15 WBC 5.68 (4.0-11.0) K/uL RBC 4.55 (4.30-5.90) M/uL Hgb 10.8 L (12.0-16.0) g/dL Hct 35.6 L (36.0-46.0) % MCV 78.2 L (80.0-98.0) fL MCH 23.7 L (27.0-32.0) pg MCHC 30.3 L (31.0-37.0) g/dL RDW Std Deviation 48.1 (28.0-62.0) fl RDW Coeff of Uday 17 H (11.0-15.0) % Plt Count 299 (150-400) K/uL MPV 10.00 (7.40-12.00) fL Neut % (Auto) 53.0 (48.0-80.0) % Lymph % (Auto) 35.7 (16.0-40.0) % [place] % (Auto) 8.3 (0.0-15.0) % Eos % (Auto) 2.5 (0.0-7.0) % Baso % (Auto) 0.5 (0.0-1.5) % Neut # (Auto) 3.0 (1.4-5.7) K/uL Lymph # (Auto) 2.0 (0.6-2.4) K/uL [place] # (Auto) 0.5 (0.0-0.8) K/uL Eos # (Auto) 0.1 (0.0-0.7) K/uL Baso # (Auto) 0.0 (0.0-0.1) K/uL Nucleated RBC % 0.0 /100WBC Nucleated RBCs # 0 K/uL INR Lactate 1.6 (0.20-2.00) mmol/L Sodium 141 (136-145) mmol/L Potassium 3.8 (3.5-5.1) mmol/L Chloride 106 (98-107) mmol/L Carbon Dioxide 27.6 (21.0-32.0) mmol/L BUN 12 (7.0-18.0) mg/dL Creatinine 1.0 (0.6-1.0) mg/dL Est Cr Clr Drug Dosing 50.73 mL/min Estimated GFR (MDRD) 56.9 ml/min Glucose 134 H (74-106) mg/dL Calcium 9.1 (8.5-10.1) mg/dL Total Bilirubin 0.3 (0.2-1.0) mg/dL AST 28 (15-37) IU/L ALT 43 (14-63) IU/L Alkaline Phosphatase 125 H (46-116) U/L Total Protein 7.3 (6.4-8.2) g/dL Albumin 3.7 (3.4-5.0) g/dL Globulin 3.6 (2.6-4.0) g/dL Albumin/Globulin Ratio 1.0 (0.9-1.6) 04/12/19 Range/Units 13:15 WBC (4.0-11.0) K/uL RBC (4.30-5.90) M/uL Hgb (12.0-16.0) g/dL Hct (36.0-46.0) % MCV (80.0-98.0) fL MCH (27.0-32.0) pg MCHC (31.0-37.0) g/dL RDW Std Deviation (28.0-62.0) fl RDW Coeff of Uday (11.0-15.0) % Plt Count (150-400) K/uL MPV (7.40-12.00) fL Neut % (Auto) (48.0-80.0) % Lymph % (Auto) (16.0-40.0) % [place] % (Auto) (0.0-15.0) % Eos % (Auto) (0.0-7.0) % Baso % (Auto) (0.0-1.5) % Neut # (Auto) (1.4-5.7) K/uL Lymph # (Auto) (0.6-2.4) K/uL [place] # (Auto) (0.0-0.8) K/uL Eos # (Auto) (0.0-0.7) K/uL Baso # (Auto) (0.0-0.1) K/uL Nucleated RBC % /100WBC Nucleated RBCs # K/uL INR Cancelled Lactate (0.20-2.00) mmol/L Sodium (136-145) mmol/L Potassium (3.5-5.1) mmol/L Chloride (98-107) mmol/L Carbon Dioxide (21.0-32.0) mmol/L BUN (7.0-18.0) mg/dL Creatinine (0.6-1.0) mg/dL Est Cr Clr Drug Dosing mL/min Estimated GFR (MDRD) ml/min Glucose (74-106) mg/dL Calcium (8.5-10.1) mg/dL Total Bilirubin (0.2-1.0) mg/dL AST (15-37) IU/L ALT (14-63) IU/L Alkaline Phosphatase (46-116) U/L Total Protein (6.4-8.2) g/dL Albumin (3.4-5.0) g/dL Globulin (2.6-4.0) g/dL Albumin/Globulin Ratio (0.9-1.6) Result Diagrams: 04/12/19 13:15 04/12/19 13:15 - Problem List (1) Gram-positive bacteremia SNOMED Code(s): 902697784914 ICD Code: R78.81 - BACTEREMIA Status: Acute Priority: High Current Visit: Yes (2) Right groin pain SNOMED Code(s): 54560698370016070 ICD Code: R10.31 - RIGHT LOWER QUADRANT PAIN Status: Acute Priority: High Current Visit: Yes Problem List Initiated/Reviewed/Updated: Yes Orders Last 24hrs: Active Orders 24 hr Category Date Time Status EKG Documentation Completion [RC] STAT Care 04/12/19 13:27 Inactive CULTURE BLOOD [BC] Stat Lab 04/12/19 13:15 Received CULTURE BLOOD [BC] Stat Lab 04/12/19 14:00 Received Sodium Chloride 0.9% [Normal Saline] 1,000 ml Med 04/12/19 13:05 Active IV STAT Blood Culture x2 Reflex Set [OM.PC] Stat Oth 04/12/19 13:04 Ordered Medication Orders Sodium Chloride (Normal Saline) 1,000 mls @ 125 mls/hr IV STAT ONE Stop: 04/12/19 21:04 Last Admin: 04/12/19 13:58 Dose: 125 mls/hr Assessment/Plan Comment:: The patient is a 58-year-old lady who had been admitted secondary to gram- positive bacteremia. Until the cultures come back with culture and sensitivity I 'll keep the patient on Rocephin 1 g IV daily. The patient will also be kept on regular diet as tolerated. I've ordered repeat laboratory testing in the morning. Physical therapy will also be ordered. The patient has had extensive workup with regards to location of the pain and causes the right hip pain. Interestingly, the patient had bladder mesh placed 8 years ago. PTOT is been ordered for the patient. We'll consider consultation with [facility] after cultures have returned. The patient will also have DVT prophylaxis with the use of 30 mg of Lovenox subcutaneous daily. She has been encouraged to ambulate.
[2019-04-12] MEDS ORDERED: Ondansetron 4 MG/2 ML SDV IVPUSH PRN (15:08)
[2019-04-12] MEDS: Sodium Chloride 0.9% 1,000 ML IV SCH (15:49)
[2019-04-12] MEDS: Enoxaparin 40 MG/0.4 ML Syringe SUBCUT SCH (15:50)
[2019-04-12] MEDS: oxyCODONE 5 MG Tab PO PRN ×2 (16:02→20:17)
[2019-04-12] MEDS: Simvastatin 40 MG Tab PO SCH (20:17)
[2019-04-12] MEDS: Acetaminophen 325 MG Tab PO PRN (20:18)
[2019-04-13] MEDS: Acetaminophen 325 MG Tab PO PRN ×6 (00:35→22:49)
[2019-04-13] MEDS: Sodium Chloride 0.9% 1,000 ML IV SCH ×3 (00:36→23:57)
[2019-04-13] MEDS: oxyCODONE 5 MG Tab PO PRN ×6 (00:36→22:51)
[2019-04-13 06:54] LABS: BLOOD UREA NITROGEN,BUN 11 mg/dL (7.0-18.0); CARBON DIOXIDE,CO2 27.1 mmol/L (21.0-32.0); CHLORIDE,CL 108 mmol/L (98-107); GLUCOSE RANDOM 98 mg/dL (74-106); POTASSIUM,K 4.1 mmol/L (3.5-5.1); SODIUM,NA 142 mmol/L (136-145)
[2019-04-13] MEDS: Omeprazole 20 MG Cap.CR PO SCH (07:22)
[2019-04-13] MEDS: Oxybutynin 5 MG Tab PO SCH ×2 (09:49→20:49)
[2019-04-13] MEDS: Venlafaxine 75 MG Cap.ER PO SCH (09:49)
--- NOTE | 2019-04-13 13:41 | PCM.PN ---
<Lio Morris - Last Filed: 04/13/19 13:46> - General Info Date of Service: 04/13/19 Subjective Update: 58 y/o female presenting with pelvic pain. Admitted after he was found to have 1 positive blood culture for gram + cocci in pair. Has remained afebrile. No nausea or vomiting. She still complains of pelvic pain. No dysuria. - Patient Data Vitals - Most Recent: Last Vital Signs Temp 36.6 C 04/13/19 11:00 Pulse 80 04/13/19 11:00 Resp 16 04/13/19 11:00 BP 124/40 L 04/13/19 11:00 Pulse Ox 91 L 04/13/19 11:00 Weight - Most Recent: 79.379 kg I&O - Last 24 Hours: Intake & Output 04/12/19 04/13/19 04/13/19 22:59 06:59 14:59 Intake Total 500 1613 Output Total 500 1500 Balance 0 113 Lab Results Last 24 Hours: Laboratory Results - last 24 hr 04/12/19 04/12/19 04/12/19 Range/Units 13:15 13:15 13:15 WBC (4.0-11.0) K/uL RBC (4.30-5.90) M/uL Hgb (12.0-16.0) g/dL Hct (36.0-46.0) % MCV (80.0-98.0) fL MCH (27.0-32.0) pg MCHC (31.0-37.0) g/dL RDW Std Deviation (28.0-62.0) fl RDW Coeff of Uday (11.0-15.0) % Plt Count (150-400) K/uL MPV (7.40-12.00) fL Neut % (Auto) (48.0-80.0) % Lymph % (Auto) (16.0-40.0) % [place] % (Auto) (0.0-15.0) % Eos % (Auto) (0.0-7.0) % Baso % (Auto) (0.0-1.5) % Neut # (Auto) (1.4-5.7) K/uL Lymph # (Auto) (0.6-2.4) K/uL [place] # (Auto) (0.0-0.8) K/uL Eos # (Auto) (0.0-0.7) K/uL Baso # (Auto) (0.0-0.1) K/uL Nucleated RBC % /100WBC Nucleated RBCs # K/uL ESR 22 (0-29) mm/hr INR Cancelled Sodium 141 (136-145) mmol/L Potassium 3.8 (3.5-5.1) mmol/L Chloride 106 (98-107) mmol/L Carbon Dioxide 27.6 (21.0-32.0) mmol/L BUN 12 (7.0-18.0) mg/dL Creatinine 1.0 (0.6-1.0) mg/dL Est Cr Clr Drug Dosing 50.73 mL/min Estimated GFR (MDRD) 56.9 ml/min Glucose 134 H (74-106) mg/dL Calcium 9.1 (8.5-10.1) mg/dL Total Bilirubin 0.3 (0.2-1.0) mg/dL AST 28 (15-37) IU/L ALT 43 (14-63) IU/L Alkaline Phosphatase 125 H (46-116) U/L Total Protein 7.3 (6.4-8.2) g/dL Albumin 3.7 (3.4-5.0) g/dL Globulin 3.6 (2.6-4.0) g/dL Albumin/Globulin Ratio 1.0 (0.9-1.6) 04/13/19 04/13/19 Range/Units 05:48 05:48 WBC 5.48 (4.0-11.0) K/uL RBC 4.11 L (4.30-5.90) M/uL Hgb 9.7 L (12.0-16.0) g/dL Hct 32.4 L (36.0-46.0) % MCV 78.8 L (80.0-98.0) fL MCH 23.6 L (27.0-32.0) pg MCHC 29.9 L (31.0-37.0) g/dL RDW Std Deviation 49.0 (28.0-62.0) fl RDW Coeff of Uday 17 H (11.0-15.0) % Plt Count 250 (150-400) K/uL MPV 10.70 (7.40-12.00) fL Neut % (Auto) 50.1 (48.0-80.0) % Lymph % (Auto) 35.0 (16.0-40.0) % [place] % (Auto) 10.9 (0.0-15.0) % Eos % (Auto) 3.5 (0.0-7.0) % Baso % (Auto) 0.5 (0.0-1.5) % Neut # (Auto) 2.7 (1.4-5.7) K/uL Lymph # (Auto) 1.9 (0.6-2.4) K/uL [place] # (Auto) 0.6 (0.0-0.8) K/uL Eos # (Auto) 0.2 (0.0-0.7) K/uL Baso # (Auto) 0.0 (0.0-0.1) K/uL Nucleated RBC % 0.0 /100WBC Nucleated RBCs # 0 K/uL ESR (0-29) mm/hr INR Sodium 142 (136-145) mmol/L Potassium 4.1 (3.5-5.1) mmol/L Chloride 108 H (98-107) mmol/L Carbon Dioxide 27.1 (21.0-32.0) mmol/L BUN 11 (7.0-18.0) mg/dL Creatinine 0.8 (0.6-1.0) mg/dL Est Cr Clr Drug Dosing 63.41 mL/min Estimated GFR (MDRD) > 60.0 ml/min Glucose 98 (74-106) mg/dL Calcium 9.0 (8.5-10.1) mg/dL Total Bilirubin 0.3 (0.2-1.0) mg/dL AST 26 (15-37) IU/L ALT 36 (14-63) IU/L Alkaline Phosphatase 110 (46-116) U/L Total Protein 6.5 (6.4-8.2) g/dL Albumin 3.1 L (3.4-5.0) g/dL Globulin 3.4 (2.6-4.0) g/dL Albumin/Globulin Ratio 0.9 (0.9-1.6) Domenic Results Last 24 Hours: Microbiology 04/12/19 13:15 Aerobic Blood Culture - Preliminary Blood - Venous NO GROWTH AFTER 1 DAY Anaerobic Blood Culture - Preliminary NO GROWTH AFTER 1 DAY Med Orders - Current: Current Medications Acetaminophen (Tylenol) 650 mg PO Q4H PRN PRN Reason: Pain (Mild 1-3)/fever Last Admin: 04/13/19 09:48 Dose: 650 mg Enoxaparin Sodium (Lovenox) 40 mg SUBCUT Q24H [facility] Last Admin: 04/12/19 15:50 Dose: 40 mg Sodium Chloride (Normal Saline) 1,000 mls @ 75 mls/hr IV ASDIRECTED [facility] Last Admin: 04/13/19 07:21 Dose: 75 mls/hr Ceftriaxone Sodium/Dextrose 1 (gm/ Premix) 50 mls @ 100 mls/hr IV Q24H [facility] Omeprazole (Omeprazole) 40 mg PO ACBREAKFAST [facility] Last Admin: 04/13/19 07:22 Dose: 40 mg Ondansetron HCl (Zofran) 4 mg IVPUSH Q6H PRN PRN Reason: Nausea/Vomiting Oxybutynin Chloride (Oxybutynin) 5 mg PO BID [facility] Last Admin: 04/13/19 09:49 Dose: 5 mg Oxycodone HCl (Oxycodone) 5 mg PO Q4H PRN PRN Reason: Pain (moderate 4-6) Last Admin: 04/13/19 09:47 Dose: 5 mg Simvastatin (Zocor) 40 mg PO BEDTIME [facility] Last Admin: 04/12/19 20:17 Dose: 40 mg Venlafaxine HCl (Effexor Xr) 75 mg PO DAILY [facility] Last Admin: 04/13/19 09:49 Dose: 75 mg Discontinued Medications Sodium Chloride (Normal Saline) 1,000 mls @ 125 mls/hr IV STAT ONE Stop: 04/12/19 21:04 Last Admin: 04/12/19 13:58 Dose: 125 mls/hr Ceftriaxone Sodium/Dextrose 1 (gm/ Premix) 50 mls @ 100 mls/hr IV ONETIME ONE Stop: 04/12/19 13:55 Last Admin: 04/12/19 13:58 Dose: 100 mls/hr Ondansetron HCl (Zofran) 4 mg IVPUSH ONETIME ONE Stop: 04/12/19 13:06 Last Admin: 04/12/19 13:58 Dose: 4 mg Tenecteplase (Tnkase) 50 mg IV NOW STA; Protocol Stop: 04/12/19 13:28 Last Admin: 04/12/19 13:32 Dose: Not Given - Exam General: Alert, Oriented, Cooperative, No Acute Distress Cardiovascular: Regular Rate, Regular Rhythm GI/Abdominal Exam: Normal Bowel Sounds, Soft, Other (mildly tender in pelvic area. no lumps or masses noticed.) Extremities: Normal Inspection Skin: Warm, Dry - Problem List Review Problem List Initiated/Reviewed/Updated: Yes - My Orders Last 24 Hours: My Active Orders 04/13/19 09:00 Oxybutynin 5 mg PO BID 04/13/19 13:23 Pelvis Non OB Ltd [US] Routine 04/13/19 13:40 UA RFX DOMENIC AND CULT IF INDIC [URIN] Stat - Plan Plan:: A: 1. gram + cocci in pairs bacteremia 2. pelvic pain 3. microcytic anemia P: 1. Bacteremia- new blood culture sets have remained negative. 2. Pelvic pain- unsure what is causing her pelvic pain. Recent imaging was negative. Possibly bladder spasms. Will order oxybutynin and see if it helps. Order U/A. 3. Microcytic anemia- Iron studies, stool occult. Dispo: likely dc tomorrow. <Pancho Jones - Last Filed: 04/13/19 16:48> - General Info Admission Dx/Problem (Free Text): I have seen and examined the patient independently of Dr. Yvonne MD. I have reviewed and agree with the plan of care as outlined by Dr. Russell and agree with the plan as outlined by this resident. I have discussed the case with the resident. Please see orders. - Patient Data Vitals - Most Recent: Last Vital Signs Temp 36.6 C 04/13/19 11:00 Pulse 80 04/13/19 11:00 Resp 16 04/13/19 11:00 BP 124/40 L 04/13/19 11:00 Pulse Ox 91 L 04/13/19 11:00 I&O - Last 24 Hours: Intake & Output 04/13/19 04/13/19 04/13/19 06:59 14:59 22:59 Intake Total 1613 Output Total 1500 Balance 113 Lab Results Last 24 Hours: Laboratory Results - last 24 hr 04/13/19 04/13/19 04/13/19 Range/Units 05:48 05:48 13:49 WBC 5.48 (4.0-11.0) K/uL RBC 4.11 L (4.30-5.90) M/uL Hgb 9.7 L (12.0-16.0) g/dL Hct 32.4 L (36.0-46.0) % MCV 78.8 L (80.0-98.0) fL MCH 23.6 L (27.0-32.0) pg MCHC 29.9 L (31.0-37.0) g/dL RDW Std Deviation 49.0 (28.0-62.0) fl RDW Coeff of Uday 17 H (11.0-15.0) % Plt Count 250 (150-400) K/uL MPV 10.70 (7.40-12.00) fL Neut % (Auto) 50.1 (48.0-80.0) % Lymph % (Auto) 35.0 (16.0-40.0) % [place] % (Auto) 10.9 (0.0-15.0) % Eos % (Auto) 3.5 (0.0-7.0) % Baso % (Auto) 0.5 (0.0-1.5) % Neut # (Auto) 2.7 (1.4-5.7) K/uL Lymph # (Auto) 1.9 (0.6-2.4) K/uL [place] # (Auto) 0.6 (0.0-0.8) K/uL Eos # (Auto) 0.2 (0.0-0.7) K/uL Baso # (Auto) 0.0 (0.0-0.1) K/uL Nucleated RBC % 0.0 /100WBC Nucleated RBCs # 0 K/uL Sodium 142 (136-145) mmol/L Potassium 4.1 (3.5-5.1) mmol/L Chloride 108 H (98-107) mmol/L Carbon Dioxide 27.1 (21.0-32.0) mmol/L BUN 11 (7.0-18.0) mg/dL Creatinine 0.8 (0.6-1.0) mg/dL Est Cr Clr Drug Dosing 63.41 mL/min Estimated GFR (MDRD) > 60.0 ml/min Glucose 98 (74-106) mg/dL Calcium 9.0 (8.5-10.1) mg/dL Iron 22 L (50-175) ug/dL TIBC 256 (250-450) ug/dL % Saturation 8.59 L (20-55) % Ferritin 141 (8-252) ng/mL Total Bilirubin 0.3 (0.2-1.0) mg/dL AST 26 (15-37) IU/L ALT 36 (14-63) IU/L Alkaline Phosphatase 110 (46-116) U/L Total Protein 6.5 (6.4-8.2) g/dL Albumin 3.1 L (3.4-5.0) g/dL Globulin 3.4 (2.6-4.0) g/dL Albumin/Globulin Ratio 0.9 (0.9-1.6) Vitamin B12 (193-986) pg/mL Folate (8.60-58.90) ng/mL Urine Color Urine Appearance Urine pH (5.0-8.0) Ur Specific [place] (1.001-1.035) Urine Protein (NEGATIVE) mg/dL Urine Glucose (UA) (NEGATIVE) mg/dL Urine Ketones (NEGATIVE) mg/dL Urine Occult Blood (NEGATIVE) Urine Nitrite (NEGATIVE) Urine Bilirubin (NEGATIVE) Urine Urobilinogen (<2.0) EU/dL Ur Leukocyte Esterase (NEGATIVE) 04/13/19 04/13/19 Range/Units 13:49 14:38 WBC (4.0-11.0) K/uL RBC (4.30-5.90) M/uL Hgb (12.0-16.0) g/dL Hct (36.0-46.0) % MCV (80.0-98.0) fL MCH (27.0-32.0) pg MCHC (31.0-37.0) g/dL RDW Std Deviation (28.0-62.0) fl RDW Coeff of Uday (11.0-15.0) % Plt Count (150-400) K/uL MPV (7.40-12.00) fL Neut % (Auto) (48.0-80.0) % Lymph % (Auto) (16.0-40.0) % [place] % (Auto) (0.0-15.0) % Eos % (Auto) (0.0-7.0) % Baso % (Auto) (0.0-1.5) % Neut # (Auto) (1.4-5.7) K/uL Lymph # (Auto) (0.6-2.4) K/uL [place] # (Auto) (0.0-0.8) K/uL Eos # (Auto) (0.0-0.7) K/uL Baso # (Auto) (0.0-0.1) K/uL Nucleated RBC % /100WBC Nucleated RBCs # K/uL Sodium (136-145) mmol/L Potassium (3.5-5.1) mmol/L Chloride (98-107) mmol/L Carbon Dioxide (21.0-32.0) mmol/L BUN (7.0-18.0) mg/dL Creatinine (0.6-1.0) mg/dL Est Cr Clr Drug Dosing mL/min Estimated GFR (MDRD) ml/min Glucose (74-106) mg/dL Calcium (8.5-10.1) mg/dL Iron (50-175) ug/dL TIBC (250-450) ug/dL % Saturation (20-55) % Ferritin (8-252) ng/mL Total Bilirubin (0.2-1.0) mg/dL AST (15-37) IU/L ALT (14-63) IU/L Alkaline Phosphatase (46-116) U/L Total Protein (6.4-8.2) g/dL Albumin (3.4-5.0) g/dL Globulin (2.6-4.0) g/dL Albumin/Globulin Ratio (0.9-1.6) Vitamin B12 312 (193-986) pg/mL Folate 5.30 L (8.60-58.90) ng/mL Urine Color YELLOW Urine Appearance CLEAR Urine pH 5.5 (5.0-8.0) Ur Specific [place] 1.010 (1.001-1.035) Urine Protein NEGATIVE (NEGATIVE) mg/dL Urine Glucose (UA) NEGATIVE (NEGATIVE) mg/dL Urine Ketones NEGATIVE (NEGATIVE) mg/dL Urine Occult Blood NEGATIVE (NEGATIVE) Urine Nitrite NEGATIVE (NEGATIVE) Urine Bilirubin NEGATIVE (NEGATIVE) Urine Urobilinogen 0.2 (<2.0) EU/dL Ur Leukocyte Esterase NEGATIVE (NEGATIVE) Domenic Results Last 24 Hours: Microbiology 04/12/19 14:00 Aerobic Blood Culture - Preliminary Blood - Venous - Lab Draw NO GROWTH AFTER 1 DAY Anaerobic Blood Culture - Preliminary NO GROWTH AFTER 1 DAY 04/12/19 13:15 Aerobic Blood Culture - Preliminary Blood - Venous NO GROWTH AFTER 1 DAY Anaerobic Blood Culture - Preliminary NO GROWTH AFTER 1 DAY Med Orders - Current: Current Medications Acetaminophen (Tylenol) 650 mg PO Q4H PRN PRN Reason: Pain (Mild 1-3)/fever Last Admin: 04/13/19 13:57 Dose: 650 mg Enoxaparin Sodium (Lovenox) 40 mg SUBCUT Q24H [facility] Last Admin: 04/12/19 15:50 Dose: 40 mg Sodium Chloride (Normal Saline) 1,000 mls @ 75 mls/hr IV ASDIRECTED [facility] Last Admin: 04/13/19 07:21 Dose: 75 mls/hr Ceftriaxone Sodium/Dextrose 1 (gm/ Premix) 50 mls @ 100 mls/hr IV Q24H [facility] Last Admin: 04/13/19 13:56 Dose: 100 mls/hr Omeprazole (Omeprazole) 40 mg PO ACBREAKFAST [facility] Last Admin: 04/13/19 07:22 Dose: 40 mg Ondansetron HCl (Zofran) 4 mg IVPUSH Q6H PRN PRN Reason: Nausea/Vomiting Oxybutynin Chloride (Oxybutynin) 5 mg PO BID [facility] Last Admin: 04/13/19 09:49 Dose: 5 mg Oxycodone HCl (Oxycodone) 5 mg PO Q4H PRN PRN Reason: Pain (moderate 4-6) Last Admin: 04/13/19 13:58 Dose: 5 mg Simvastatin (Zocor) 40 mg PO BEDTIME [facility] Last Admin: 04/12/19 20:17 Dose: 40 mg Venlafaxine HCl (Effexor Xr) 75 mg PO DAILY [facility] Last Admin: 04/13/19 09:49 Dose: 75 mg Discontinued Medications Sodium Chloride (Normal Saline) 1,000 mls @ 125 mls/hr IV STAT ONE Stop: 04/12/19 21:04 Last Admin: 04/12/19 13:58 Dose: 125 mls/hr Ceftriaxone Sodium/Dextrose 1 (gm/ Premix) 50 mls @ 100 mls/hr IV ONETIME ONE Stop: 04/12/19 13:55 Last Admin: 04/12/19 13:58 Dose: 100 mls/hr Ondansetron HCl (Zofran) 4 mg IVPUSH ONETIME ONE Stop: 04/12/19 13:06 Last Admin: 04/12/19 13:58 Dose: 4 mg Tenecteplase (Tnkase) 50 mg IV NOW STA; Protocol Stop: 04/12/19 13:28 Last Admin: 04/12/19 13:32 Dose: Not Given - Problem List & Annotations (1) Gram-positive bacteremia SNOMED Code(s): 528001079486 Code(s): R78.81 - BACTEREMIA Status: Acute Priority: High Current Visit : Yes (2) Right groin pain SNOMED Code(s): 74615834391323536 Code(s): R10.31 - RIGHT LOWER QUADRANT PAIN Status: Acute Priority: High Current Visit: Yes - My Orders Last 24 Hours: My Active Orders 04/12/19 16:15 Consult to Occupational Therapy [OT Evaluation and Treatment] [CONS] Routine PT Evaluation and Treatment [CONS] Routine 04/12/19 21:00 Simvastatin [Zocor] 40 mg PO BEDTIME 04/12/19 Dinner Heart Healthy Diet [DIET] 04/13/19 07:30 Omeprazole 40 mg PO ACBREAKFAST 04/13/19 09:00 Venlafaxine [Effexor XR] 75 mg PO DAILY 04/13/19 14:00 cefTRIAXone [Rocephin in Dextrose,Iso-Osm 1 GM/50 ML] 1 gm Premix Bag 1 bag IV Q24H
[2019-04-13] MEDS: cefTRIAXone 1 GM in Premix Bag 1 BAG IV SCH (13:56)
[2019-04-13] MEDS: Enoxaparin 40 MG/0.4 ML Syringe SUBCUT SCH (17:18)
[2019-04-13] MEDS: Simvastatin 40 MG Tab PO SCH (20:49)
[2019-04-13] MEDS ORDERED: oxyCODONE 5 MG Tab PO STA (23:41)
[2019-04-14] MEDS: oxyCODONE 5 MG Tab PO PRN ×3 (04:36→21:02)
[2019-04-14] MEDS: Omeprazole 20 MG Cap.CR PO SCH (06:35)
[2019-04-14 08:28] LABS: BLOOD UREA NITROGEN,BUN 11 mg/dL (7.0-18.0); CARBON DIOXIDE,CO2 30.6 mmol/L (21.0-32.0); CHLORIDE,CL 106 mmol/L (98-107); GLUCOSE RANDOM 100 mg/dL (74-106); SODIUM,NA 141 mmol/L (136-145)
--- NOTE | 2019-04-14 09:17 | PCM.PN ---
<Lio Morris - Last Filed: 04/14/19 09:18> - General Info Date of Service: 04/14/19 Subjective Update: Patient still complaining of pelvic pain. States she has not had a bowel movement in 4-5 days. Has been eating ok. No nausea or vomiting. denies vaginal bleeding, discharge. No fevers. - Patient Data Vitals - Most Recent: Last Vital Signs Temp 36.7 C 04/14/19 04:00 Pulse 84 04/14/19 04:00 Resp 16 04/14/19 04:00 BP 120/72 04/14/19 04:00 Pulse Ox 94 L 04/14/19 04:00 Weight - Most Recent: 79.379 kg I&O - Last 24 Hours: Intake & Output 04/13/19 04/14/19 04/14/19 22:59 06:59 14:59 Intake Total 1500 1215 Output Total 1900 Balance -400 1215 Lab Results Last 24 Hours: Laboratory Results - last 24 hr 04/13/19 04/13/19 04/13/19 Range/Units 13:49 13:49 14:38 WBC (4.0-11.0) K/uL RBC (4.30-5.90) M/uL Hgb (12.0-16.0) g/dL Hct (36.0-46.0) % MCV (80.0-98.0) fL MCH (27.0-32.0) pg MCHC (31.0-37.0) g/dL RDW Std Deviation (28.0-62.0) fl RDW Coeff of Uday (11.0-15.0) % Plt Count (150-400) K/uL MPV (7.40-12.00) fL Neut % (Auto) (48.0-80.0) % Lymph % (Auto) (16.0-40.0) % [place] % (Auto) (0.0-15.0) % Eos % (Auto) (0.0-7.0) % Baso % (Auto) (0.0-1.5) % Neut # (Auto) (1.4-5.7) K/uL Lymph # (Auto) (0.6-2.4) K/uL [place] # (Auto) (0.0-0.8) K/uL Eos # (Auto) (0.0-0.7) K/uL Baso # (Auto) (0.0-0.1) K/uL Nucleated RBC % /100WBC Nucleated RBCs # K/uL Sodium (136-145) mmol/L Potassium (3.5-5.1) mmol/L Chloride (98-107) mmol/L Carbon Dioxide (21.0-32.0) mmol/L BUN (7.0-18.0) mg/dL Creatinine (0.6-1.0) mg/dL Est Cr Clr Drug Dosing mL/min Estimated GFR (MDRD) ml/min Glucose (74-106) mg/dL Calcium (8.5-10.1) mg/dL Iron 22 L (50-175) ug/dL TIBC 256 (250-450) ug/dL % Saturation 8.59 L (20-55) % Ferritin 141 (8-252) ng/mL Total Bilirubin (0.2-1.0) mg/dL AST (15-37) IU/L ALT (14-63) IU/L Alkaline Phosphatase (46-116) U/L Total Protein (6.4-8.2) g/dL Albumin (3.4-5.0) g/dL Globulin (2.6-4.0) g/dL Albumin/Globulin Ratio (0.9-1.6) Vitamin B12 312 (193-986) pg/mL Folate 5.30 L (8.60-58.90) ng/mL Urine Color YELLOW Urine Appearance CLEAR Urine pH 5.5 (5.0-8.0) Ur Specific Newton 1.010 (1.001-1.035) Urine Protein NEGATIVE (NEGATIVE) mg/dL Urine Glucose (UA) NEGATIVE (NEGATIVE) mg/dL Urine Ketones NEGATIVE (NEGATIVE) mg/dL Urine Occult Blood NEGATIVE (NEGATIVE) Urine Nitrite NEGATIVE (NEGATIVE) Urine Bilirubin NEGATIVE (NEGATIVE) Urine Urobilinogen 0.2 (<2.0) EU/dL Ur Leukocyte Esterase NEGATIVE (NEGATIVE) 04/14/19 04/14/19 Range/Units 08:01 08:01 WBC 6.48 (4.0-11.0) K/uL RBC 4.37 (4.30-5.90) M/uL Hgb 10.4 L (12.0-16.0) g/dL Hct 34.1 L (36.0-46.0) % MCV 78.0 L (80.0-98.0) fL MCH 23.8 L (27.0-32.0) pg MCHC 30.5 L (31.0-37.0) g/dL RDW Std Deviation 48.3 (28.0-62.0) fl RDW Coeff of Uday 17 H (11.0-15.0) % Plt Count 291 (150-400) K/uL MPV 9.50 (7.40-12.00) fL Neut % (Auto) 59.2 (48.0-80.0) % Lymph % (Auto) 33.0 (16.0-40.0) % [place] % (Auto) 3.9 (0.0-15.0) % Eos % (Auto) 3.4 (0.0-7.0) % Baso % (Auto) 0.5 (0.0-1.5) % Neut # (Auto) 3.8 (1.4-5.7) K/uL Lymph # (Auto) 2.1 (0.6-2.4) K/uL [place] # (Auto) 0.3 (0.0-0.8) K/uL Eos # (Auto) 0.2 (0.0-0.7) K/uL Baso # (Auto) 0.0 (0.0-0.1) K/uL Nucleated RBC % 0.0 /100WBC Nucleated RBCs # 0 K/uL Sodium 141 (136-145) mmol/L Potassium 4.0 (3.5-5.1) mmol/L Chloride 106 (98-107) mmol/L Carbon Dioxide 30.6 (21.0-32.0) mmol/L BUN 11 (7.0-18.0) mg/dL Creatinine 0.8 (0.6-1.0) mg/dL Est Cr Clr Drug Dosing 63.41 mL/min Estimated GFR (MDRD) > 60.0 ml/min Glucose 100 (74-106) mg/dL Calcium 9.7 (8.5-10.1) mg/dL Iron (50-175) ug/dL TIBC (250-450) ug/dL % Saturation (20-55) % Ferritin (8-252) ng/mL Total Bilirubin 0.3 (0.2-1.0) mg/dL AST 26 (15-37) IU/L ALT 36 (14-63) IU/L Alkaline Phosphatase 127 H (46-116) U/L Total Protein 7.1 (6.4-8.2) g/dL Albumin 3.4 (3.4-5.0) g/dL Globulin 3.7 (2.6-4.0) g/dL Albumin/Globulin Ratio 0.9 (0.9-1.6) Vitamin B12 (193-986) pg/mL Folate (8.60-58.90) ng/mL Urine Color Urine Appearance Urine pH (5.0-8.0) Ur Specific Newton (1.001-1.035) Urine Protein (NEGATIVE) mg/dL Urine Glucose (UA) (NEGATIVE) mg/dL Urine Ketones (NEGATIVE) mg/dL Urine Occult Blood (NEGATIVE) Urine Nitrite (NEGATIVE) Urine Bilirubin (NEGATIVE) Urine Urobilinogen (<2.0) EU/dL Ur Leukocyte Esterase (NEGATIVE) Domenic Results Last 24 Hours: Microbiology 04/12/19 14:00 Aerobic Blood Culture - Preliminary Blood - Venous - Lab Draw NO GROWTH AFTER 1 DAY Anaerobic Blood Culture - Preliminary NO GROWTH AFTER 1 DAY 04/12/19 13:15 Aerobic Blood Culture - Preliminary Blood - Venous NO GROWTH AFTER 1 DAY Anaerobic Blood Culture - Preliminary NO GROWTH AFTER 1 DAY Med Orders - Current: Current Medications Acetaminophen (Tylenol) 650 mg PO Q4H PRN PRN Reason: Pain (Mild 1-3)/fever Last Admin: 04/13/19 22:49 Dose: 650 mg Enoxaparin Sodium (Lovenox) 40 mg SUBCUT Q24H [facility] Last Admin: 04/13/19 17:18 Dose: 40 mg Ceftriaxone Sodium/Dextrose 1 (gm/ Premix) 50 mls @ 100 mls/hr IV Q24H [facility] Last Admin: 04/13/19 13:56 Dose: 100 mls/hr Omeprazole (Omeprazole) 40 mg PO ACBREAKFAST [facility] Last Admin: 04/14/19 06:35 Dose: 40 mg Ondansetron HCl (Zofran) 4 mg IVPUSH Q6H PRN PRN Reason: Nausea/Vomiting Oxybutynin Chloride (Oxybutynin) 5 mg PO BID [facility] Last Admin: 04/13/19 20:49 Dose: 5 mg Oxycodone HCl (Oxycodone) 5 mg PO Q4H PRN PRN Reason: Pain (moderate 4-6) Last Admin: 04/14/19 04:36 Dose: 5 mg Simvastatin (Zocor) 40 mg PO BEDTIME [facility] Last Admin: 04/13/19 20:49 Dose: 40 mg Venlafaxine HCl (Effexor Xr) 75 mg PO DAILY [facility] Last Admin: 04/13/19 09:49 Dose: 75 mg Discontinued Medications Sodium Chloride (Normal Saline) 1,000 mls @ 125 mls/hr IV STAT ONE Stop: 04/12/19 21:04 Last Admin: 04/12/19 13:58 Dose: 125 mls/hr Ceftriaxone Sodium/Dextrose 1 (gm/ Premix) 50 mls @ 100 mls/hr IV ONETIME ONE Stop: 04/12/19 13:55 Last Admin: 04/12/19 13:58 Dose: 100 mls/hr Sodium Chloride (Normal Saline) 1,000 mls @ 75 mls/hr IV ASDIRECTED [facility] Last Admin: 04/13/19 23:57 Dose: 75 mls/hr Ondansetron HCl (Zofran) 4 mg IVPUSH ONETIME ONE Stop: 04/12/19 13:06 Last Admin: 04/12/19 13:58 Dose: 4 mg Oxycodone HCl (Oxycodone) 5 mg PO ONETIME STA Stop: 04/13/19 23:42 Last Admin: 04/13/19 23:52 Dose: 5 mg Tenecteplase (Tnkase) 50 mg IV NOW STA; Protocol Stop: 04/12/19 13:28 Last Admin: 04/12/19 13:32 Dose: Not Given - Exam General: Alert, Oriented, Cooperative, No Acute Distress Lungs: Clear to Auscultation, Normal Respiratory Effort Cardiovascular: Regular Rate, Regular Rhythm GI/Abdominal Exam: Other (soft, tender with deep palpation. Non tender with percussion. ) Extremities: Normal Inspection, No Pedal Edema - Problem List Review Problem List Initiated/Reviewed/Updated: Yes - My Orders Last 24 Hours: My Active Orders 04/13/19 09:00 Oxybutynin 5 mg PO BID 04/13/19 13:52 OCCULT BLOOD DIAGNOSTIC [OP] Routine 04/14/19 08:11 KUB [Abdomen 1V Flat] [CR] Routine - Plan Plan:: A: 1. gram + cocci in pairs bacteremia 2. pelvic pain 3. microcytic anemia P: 1. Bacteremia-blood cultures negative. Pending final results. Will continue with ceftriaxone for now. 2. Pelvic pain- ordered KUB to assess constipation since patient states she has not had BM in 4-5 days. Will try Miralax and see if that helps. Consulted with Dr. Avelar. 3. Iron deficiency anemia- pending stool occult results. Will Dispo: pending <KarenPancho haddad - Last Filed: 04/14/19 11:01> - General Info Admission Dx/Problem (Free Text): I have seen and examined the patient independently of Dr. Yvonne MD. I have reviewed and agree with the plan of care as outlined by Dr. Russell and agree with the plan as outlined by this resident. I have discussed the case with the resident. Please see orders. - Patient Data Vitals - Most Recent: Last Vital Signs Temp 36.4 C 04/14/19 08:00 Pulse 75 04/14/19 08:00 Resp 16 04/14/19 08:00 BP 143/73 H 04/14/19 08:00 Pulse Ox 95 04/14/19 08:00 I&O - Last 24 Hours: Intake & Output 04/13/19 04/14/19 04/14/19 22:59 06:59 14:59 Intake Total 1500 1215 Output Total 1900 Balance -400 1215 Lab Results Last 24 Hours: Laboratory Results - last 24 hr 04/13/19 04/13/19 04/13/19 Range/Units 13:49 13:49 14:38 WBC (4.0-11.0) K/uL RBC (4.30-5.90) M/uL Hgb (12.0-16.0) g/dL Hct (36.0-46.0) % MCV (80.0-98.0) fL MCH (27.0-32.0) pg MCHC (31.0-37.0) g/dL RDW Std Deviation (28.0-62.0) fl RDW Coeff of Uday (11.0-15.0) % Plt Count (150-400) K/uL MPV (7.40-12.00) fL Neut % (Auto) (48.0-80.0) % Lymph % (Auto) (16.0-40.0) % [place] % (Auto) (0.0-15.0) % Eos % (Auto) (0.0-7.0) % Baso % (Auto) (0.0-1.5) % Neut # (Auto) (1.4-5.7) K/uL Lymph # (Auto) (0.6-2.4) K/uL [place] # (Auto) (0.0-0.8) K/uL Eos # (Auto) (0.0-0.7) K/uL Baso # (Auto) (0.0-0.1) K/uL Nucleated RBC % /100WBC Nucleated RBCs # K/uL Sodium (136-145) mmol/L Potassium (3.5-5.1) mmol/L Chloride (98-107) mmol/L Carbon Dioxide (21.0-32.0) mmol/L BUN (7.0-18.0) mg/dL Creatinine (0.6-1.0) mg/dL Est Cr Clr Drug Dosing mL/min Estimated GFR (MDRD) ml/min Glucose (74-106) mg/dL Calcium (8.5-10.1) mg/dL Iron 22 L (50-175) ug/dL TIBC 256 (250-450) ug/dL % Saturation 8.59 L (20-55) % Ferritin 141 (8-252) ng/mL Total Bilirubin (0.2-1.0) mg/dL AST (15-37) IU/L ALT (14-63) IU/L Alkaline Phosphatase (46-116) U/L Total Protein (6.4-8.2) g/dL Albumin (3.4-5.0) g/dL Globulin (2.6-4.0) g/dL Albumin/Globulin Ratio (0.9-1.6) Vitamin B12 312 (193-986) pg/mL Folate 5.30 L (8.60-58.90) ng/mL Urine Color YELLOW Urine Appearance CLEAR Urine pH 5.5 (5.0-8.0) Ur Specific Newton 1.010 (1.001-1.035) Urine Protein NEGATIVE (NEGATIVE) mg/dL Urine Glucose (UA) NEGATIVE (NEGATIVE) mg/dL Urine Ketones NEGATIVE (NEGATIVE) mg/dL Urine Occult Blood NEGATIVE (NEGATIVE) Urine Nitrite NEGATIVE (NEGATIVE) Urine Bilirubin NEGATIVE (NEGATIVE) Urine Urobilinogen 0.2 (<2.0) EU/dL Ur Leukocyte Esterase NEGATIVE (NEGATIVE) 04/14/19 04/14/19 Range/Units 08:01 08:01 WBC 6.48 (4.0-11.0) K/uL RBC 4.37 (4.30-5.90) M/uL Hgb 10.4 L (12.0-16.0) g/dL Hct 34.1 L (36.0-46.0) % MCV 78.0 L (80.0-98.0) fL MCH 23.8 L (27.0-32.0) pg MCHC 30.5 L (31.0-37.0) g/dL RDW Std Deviation 48.3 (28.0-62.0) fl RDW Coeff of Uday 17 H (11.0-15.0) % Plt Count 291 (150-400) K/uL MPV 9.50 (7.40-12.00) fL Neut % (Auto) 59.2 (48.0-80.0) % Lymph % (Auto) 33.0 (16.0-40.0) % [place] % (Auto) 3.9 (0.0-15.0) % Eos % (Auto) 3.4 (0.0-7.0) % Baso % (Auto) 0.5 (0.0-1.5) % Neut # (Auto) 3.8 (1.4-5.7) K/uL Lymph # (Auto) 2.1 (0.6-2.4) K/uL [place] # (Auto) 0.3 (0.0-0.8) K/uL Eos # (Auto) 0.2 (0.0-0.7) K/uL Baso # (Auto) 0.0 (0.0-0.1) K/uL Nucleated RBC % 0.0 /100WBC Nucleated RBCs # 0 K/uL Sodium 141 (136-145) mmol/L Potassium 4.0 (3.5-5.1) mmol/L Chloride 106 (98-107) mmol/L Carbon Dioxide 30.6 (21.0-32.0) mmol/L BUN 11 (7.0-18.0) mg/dL Creatinine 0.8 (0.6-1.0) mg/dL Est Cr Clr Drug Dosing 63.41 mL/min Estimated GFR (MDRD) > 60.0 ml/min Glucose 100 (74-106) mg/dL Calcium 9.7 (8.5-10.1) mg/dL Iron (50-175) ug/dL TIBC (250-450) ug/dL % Saturation (20-55) % Ferritin (8-252) ng/mL Total Bilirubin 0.3 (0.2-1.0) mg/dL AST 26 (15-37) IU/L ALT 36 (14-63) IU/L Alkaline Phosphatase 127 H (46-116) U/L Total Protein 7.1 (6.4-8.2) g/dL Albumin 3.4 (3.4-5.0) g/dL Globulin 3.7 (2.6-4.0) g/dL Albumin/Globulin Ratio 0.9 (0.9-1.6) Vitamin B12 (193-986) pg/mL Folate (8.60-58.90) ng/mL Urine Color Urine Appearance Urine pH (5.0-8.0) Ur Specific Newton (1.001-1.035) Urine Protein (NEGATIVE) mg/dL Urine Glucose (UA) (NEGATIVE) mg/dL Urine Ketones (NEGATIVE) mg/dL Urine Occult Blood (NEGATIVE) Urine Nitrite (NEGATIVE) Urine Bilirubin (NEGATIVE) Urine Urobilinogen (<2.0) EU/dL Ur Leukocyte Esterase (NEGATIVE) Domenic Results Last 24 Hours: Microbiology 04/12/19 14:00 Aerobic Blood Culture - Preliminary Blood - Venous - Lab Draw NO GROWTH AFTER 1 DAY Anaerobic Blood Culture - Preliminary NO GROWTH AFTER 1 DAY 04/12/19 13:15 Aerobic Blood Culture - Preliminary Blood - Venous NO GROWTH AFTER 1 DAY Anaerobic Blood Culture - Preliminary NO GROWTH AFTER 1 DAY Med Orders - Current: Current Medications Acetaminophen (Tylenol) 650 mg PO Q4H PRN PRN Reason: Pain (Mild 1-3)/fever Last Admin: 04/13/19 22:49 Dose: 650 mg Enoxaparin Sodium (Lovenox) 40 mg SUBCUT Q24H [facility] Last Admin: 04/13/19 17:18 Dose: 40 mg Ceftriaxone Sodium/Dextrose 1 (gm/ Premix) 50 mls @ 100 mls/hr IV Q24H [facility] Last Admin: 04/13/19 13:56 Dose: 100 mls/hr Omeprazole (Omeprazole) 40 mg PO ACBREAKFAST [facility] Last Admin: 04/14/19 06:35 Dose: 40 mg Ondansetron HCl (Zofran) 4 mg IVPUSH Q6H PRN PRN Reason: Nausea/Vomiting Oxybutynin Chloride (Oxybutynin) 5 mg PO BID [facility] Last Admin: 04/14/19 10:01 Dose: 5 mg Oxycodone HCl (Oxycodone) 5 mg PO Q4H PRN PRN Reason: Pain (moderate 4-6) Last Admin: 04/14/19 04:36 Dose: 5 mg Polyethylene Glycol (Miralax) 17 gm PO ONETIME ONE Stop: 04/14/19 10:59 Simvastatin (Zocor) 40 mg PO BEDTIME [facility] Last Admin: 04/13/19 20:49 Dose: 40 mg Venlafaxine HCl (Effexor Xr) 75 mg PO DAILY [facility] Last Admin: 04/14/19 10:01 Dose: 75 mg Discontinued Medications Sodium Chloride (Normal Saline) 1,000 mls @ 125 mls/hr IV STAT ONE Stop: 04/12/19 21:04 Last Admin: 04/12/19 13:58 Dose: 125 mls/hr Ceftriaxone Sodium/Dextrose 1 (gm/ Premix) 50 mls @ 100 mls/hr IV ONETIME ONE Stop: 04/12/19 13:55 Last Admin: 04/12/19 13:58 Dose: 100 mls/hr Sodium Chloride (Normal Saline) 1,000 mls @ 75 mls/hr IV ASDIRECTED [facility] Last Admin: 04/13/19 23:57 Dose: 75 mls/hr Ondansetron HCl (Zofran) 4 mg IVPUSH ONETIME ONE Stop: 04/12/19 13:06 Last Admin: 04/12/19 13:58 Dose: 4 mg Oxycodone HCl (Oxycodone) 5 mg PO ONETIME STA Stop: 04/13/19 23:42 Last Admin: 04/13/19 23:52 Dose: 5 mg Tenecteplase (Tnkase) 50 mg IV NOW STA; Protocol Stop: 04/12/19 13:28 Last Admin: 04/12/19 13:32 Dose: Not Given - Problem List & Annotations (1) Gram-positive bacteremia SNOMED Code(s): 472637216575 Code(s): R78.81 - BACTEREMIA Status: Acute Priority: High Current Visit : Yes (2) Right groin pain SNOMED Code(s): 98080500348696976 Code(s): R10.31 - RIGHT LOWER QUADRANT PAIN Status: Acute Priority: High Current Visit: Yes - My Orders Last 24 Hours: My Active Orders 04/13/19 14:00 cefTRIAXone [Rocephin in Dextrose,Iso-Osm 1 GM/50 ML] 1 gm Premix Bag 1 bag IV Q24H 04/13/19 23:07 EKG 12 Lead [EKG Documentation Completion] [RC] STAT 04/14/19 07:03 Consult to Physician [CONS] Routine 04/14/19 07:04 Notify Provider Consults [RC] ASDIRECTED
[2019-04-14] MEDS: Oxybutynin 5 MG Tab PO SCH ×2 (10:01→21:02)
[2019-04-14] MEDS: Venlafaxine 75 MG Cap.ER PO SCH (10:01)
[2019-04-14] MEDS ORDERED: Polyethylene Glycol 3350 Powder 17 GM Packet PO ONE (10:58)
--- NOTE | 2019-04-14 13:21 | CR ---
EXAMINATION: Abdomen HISTORY: Pain COMPARISON: CT dated 04/10/2019 TECHNIQUE: AP views FINDINGS: There is a nonobstructive bowel gas pattern. No abnormal calcification projecting over the kidneys. Cholecystectomy clips are noted. Visualized osseous structures are normal. IMPRESSION: 1. No acute findings within the abdomen.
[2019-04-14] MEDS: cefTRIAXone 1 GM in Premix Bag 1 BAG IV SCH (13:40)
--- NOTE | 2019-04-14 14:36 | CONS ---
DATE OF CONSULTATION: DATE OF : 1960 PRIMARY CARE PHYSICIAN: Unknown PCP REFERRING PHYSICIAN: Pancho Jones DO BRIEF HISTORY: A 58-year-old patient. She is admitted for back pain and suprapubic and right labial pain with mild fever. For detail of her history and physical, the reader referred to the admit note and the lab work. For the purpose of this consultation, I reviewed her admit note and reviewed her lab work and the workup. However, on further questioning of the patient on the patient's status, she states she had a hysterectomy with bilateral salpingo-oophorectomy and transobturator mid sling placement for stress urinary incontinence 8 years ago. She is not on any hormone replacement therapy. The patient describes her pain as in the right suprapubic area, in the labial area, and radiated back into the right of her hip joint. There is no hematuria. There is no discharge, and there is no burning with urination. The pain started about 8 days ago. The examination is limited to pelvic and lower abdomen. The patient is guarding the lower abdominal examination, but there is no sign of peritoneal irritation. However, the patient does have tenderness in the right inguinal area and the right labial area and the right groin area. On a brief bedside pelvic digital examination, there is no mesh erosion I could feel on the digital examination. However, the patient is tender when I palpated the right side of her vagina and tender in the right side of her urethral examination. There is a thickening area in that area, but again there is no erosion in the vagina. ASSESSMENT: Pelvic pain, right now is of unknown etiology. It may be related to her mesh placement 8 years ago, however, question to be asked why suddenly she started having pain in that area after 8 years of mesh placement, which is unexplained at this time. However, the patient stated that since her surgery she has some dyspareunia and pain when she tried to have intercourse. At this time, I am not really sure if the pain is related to her transobturator suburethral sling since there is no erosion vaginally. However, I am suggesting to treat her with estrogen cream vaginally, have applicator 2 to 3 days a week and pain medications, and we can follow her in the office if she elected to do that or she can go back to her original doctor who did her surgery for appropriate followup. Thank you for consulting us. NICOLE SPAIN /[id number]
[2019-04-14] MEDS: Enoxaparin 40 MG/0.4 ML Syringe SUBCUT SCH (14:42)
[2019-04-14] MEDS: Simvastatin 40 MG Tab PO SCH (21:02)
[2019-04-15] MEDS: oxyCODONE 5 MG Tab PO PRN ×5 (01:06→20:36)
[2019-04-15 06:50] LABS: BLOOD UREA NITROGEN,BUN 13 mg/dL (7.0-18.0); CARBON DIOXIDE,CO2 26.7 mmol/L (21.0-32.0); CHLORIDE,CL 104 mmol/L (98-107); GLUCOSE RANDOM 109 mg/dL (74-106); POTASSIUM,K 3.7 mmol/L (3.5-5.1); SODIUM,NA 140 mmol/L (136-145)
[2019-04-15] MEDS: Omeprazole 20 MG Cap.CR PO SCH (07:01)
[2019-04-15] MEDS ORDERED: Gadobenate Dimeglumine 529 MG/ML 20 ML SDV IVPUSH STA (08:01)
[2019-04-15] MEDS: Cyanocobalamin (Vitamin B12) 500 MCG Tab PO SCH (09:20)
[2019-04-15] MEDS: Venlafaxine 75 MG Cap.ER PO SCH (09:20)
[2019-04-15] MEDS: Iron Polysaccharides Complex 150 MG Cap PO SCH (09:20)
[2019-04-15] MEDS: Oxybutynin 5 MG Tab PO SCH ×2 (09:20→20:35)
[2019-04-15] MEDS: Folic Acid 1 MG Tab PO SCH (09:20)
--- NOTE | 2019-04-15 09:30 | MR ---
INDICATION: Pelvic and groin pain. TECHNIQUE: Multiplanar imaging of the pelvis was performed without and with 15 cc of MultiHance contrast material IV. COMPARISON: Abdomen/pelvis CT of 04/10/2019. FINDINGS: There is no convincing evidence of pelvic prolapse for an inguinal/abdominal wall hernia. Postop changes of total abdominal hysterectomy are again demonstrated. Scratches no free fluid is demonstrated. The visualized bowel is unremarkable. No lymphadenopathy or other abnormality is demonstrated. A partially visualized lipoma in the medial right thigh is noted. This measures up to 4.6 cm in maximum diameter. IMPRESSION: 1. Etiology of pelvic and groin pain not evident. 2. Post total abdominal hysterectomy. 3. Partially visualized lipoma measuring up to 4.6 cm in diameter in the medial thigh. Dictated by Darryl Hannah MD @ Apr 15 2019 9:23AM Signed by Dr. Darryl Hannah @ Apr 15 2019 9:29AM
--- NOTE | 2019-04-15 11:54 | PCM.PN ---
<Lio Morris - Last Filed: 04/15/19 11:54> - General Info Date of Service: 04/15/19 Subjective Update: No acute events overnight. Pt states she stills feels some pain in her pelvic region. No vaginal discharge or bleeding. - Patient Data Vitals - Most Recent: Last Vital Signs Temp 36.3 C 04/15/19 08:00 Pulse 67 04/15/19 08:00 Resp 18 04/15/19 08:00 BP 127/78 04/15/19 08:00 Pulse Ox 98 04/15/19 08:00 Weight - Most Recent: 79.379 kg I&O - Last 24 Hours: Intake & Output 04/14/19 04/15/19 04/15/19 22:59 06:59 14:59 Intake Total 1455 1000 Output Total 1600 2500 Balance -145 -1500 Lab Results Last 24 Hours: Laboratory Results - last 24 hr 04/15/19 04/15/19 Range/Units 06:10 06:10 WBC 5.62 (4.0-11.0) K/uL RBC 4.50 (4.30-5.90) M/uL Hgb 10.7 L (12.0-16.0) g/dL Hct 34.8 L (36.0-46.0) % MCV 77.3 L (80.0-98.0) fL MCH 23.8 L (27.0-32.0) pg MCHC 30.7 L (31.0-37.0) g/dL RDW Std Deviation 48.1 (28.0-62.0) fl RDW Coeff of Uday 17 H (11.0-15.0) % Plt Count 335 (150-400) K/uL MPV 9.60 (7.40-12.00) fL Nucleated RBC % 0.0 /100WBC Nucleated RBCs # 0 K/uL Sodium 140 (136-145) mmol/L Potassium 3.7 (3.5-5.1) mmol/L Chloride 104 (98-107) mmol/L Carbon Dioxide 26.7 (21.0-32.0) mmol/L BUN 13 (7.0-18.0) mg/dL Creatinine 0.8 (0.6-1.0) mg/dL Est Cr Clr Drug Dosing 62.63 mL/min Estimated GFR (MDRD) > 60.0 ml/min Glucose 109 H (74-106) mg/dL Calcium 9.6 (8.5-10.1) mg/dL Domenic Results Last 24 Hours: Microbiology 04/12/19 14:00 Aerobic Blood Culture - Preliminary Blood - Venous - Lab Draw NO GROWTH AFTER 2 DAYS Anaerobic Blood Culture - Preliminary NO GROWTH AFTER 2 DAYS 04/12/19 13:15 Aerobic Blood Culture - Preliminary Blood - Venous NO GROWTH AFTER 2 DAYS Anaerobic Blood Culture - Preliminary NO GROWTH AFTER 2 DAYS 04/14/19 12:05 Stool Occult Blood (DOMENIC) - Final Stool / Feces NEGATIVE OCCULT BLOOD REFERENCE RANGE: NEGATIVE Med Orders - Current: Current Medications Acetaminophen (Tylenol) 650 mg PO Q4H PRN PRN Reason: Pain (Mild 1-3)/fever Last Admin: 04/13/19 22:49 Dose: 650 mg Cyanocobalamin (Vitamin B12) 500 mcg PO DAILY [facility] Last Admin: 04/15/19 09:20 Dose: 500 mcg Enoxaparin Sodium (Lovenox) 40 mg SUBCUT Q24H [facility] Last Admin: 04/14/19 14:42 Dose: 40 mg Folic Acid (Folic Acid) 1 mg PO DAILY [facility] Last Admin: 04/15/19 09:20 Dose: 1 mg Omeprazole (Omeprazole) 40 mg PO ACBREAKFAST [facility] Last Admin: 04/15/19 07:01 Dose: 40 mg Ondansetron HCl (Zofran) 4 mg IVPUSH Q6H PRN PRN Reason: Nausea/Vomiting Oxybutynin Chloride (Oxybutynin) 5 mg PO BID [facility] Last Admin: 04/15/19 09:20 Dose: 5 mg Oxycodone HCl (Oxycodone) 5 mg PO Q4H PRN PRN Reason: Pain (moderate 4-6) Last Admin: 04/15/19 05:10 Dose: 5 mg Polysaccharide Iron Complex (Ferrex 150) 150 mg PO DAILY [facility] Last Admin: 04/15/19 09:20 Dose: 150 mg Simvastatin (Zocor) 40 mg PO BEDTIME [facility] Last Admin: 04/14/19 21:02 Dose: 40 mg Venlafaxine HCl (Effexor Xr) 75 mg PO DAILY [facility] Last Admin: 04/15/19 09:20 Dose: 75 mg Discontinued Medications Gadobenate Dimeglumine (Multihance) 20 ml IVPUSH ONETIME STA Stop: 04/15/19 08:02 Last Admin: 04/15/19 08:04 Dose: 15 ml Sodium Chloride (Normal Saline) 1,000 mls @ 125 mls/hr IV STAT ONE Stop: 04/12/19 21:04 Last Admin: 04/12/19 13:58 Dose: 125 mls/hr Ceftriaxone Sodium/Dextrose 1 (gm/ Premix) 50 mls @ 100 mls/hr IV ONETIME ONE Stop: 04/12/19 13:55 Last Admin: 04/12/19 13:58 Dose: 100 mls/hr Sodium Chloride (Normal Saline) 1,000 mls @ 75 mls/hr IV ASDIRECTED [facility] Last Admin: 04/13/19 23:57 Dose: 75 mls/hr Ceftriaxone Sodium/Dextrose 1 (gm/ Premix) 50 mls @ 100 mls/hr IV Q24H [facility] Last Admin: 04/14/19 13:40 Dose: 100 mls/hr Ondansetron HCl (Zofran) 4 mg IVPUSH ONETIME ONE Stop: 04/12/19 13:06 Last Admin: 04/12/19 13:58 Dose: 4 mg Oxycodone HCl (Oxycodone) 5 mg PO ONETIME STA Stop: 04/13/19 23:42 Last Admin: 04/13/19 23:52 Dose: 5 mg Polyethylene Glycol (Miralax) 17 gm PO ONETIME ONE Stop: 04/14/19 10:59 Last Admin: 04/14/19 11:17 Dose: 17 gm Tenecteplase (Tnkase) 50 mg IV NOW STA; Protocol Stop: 04/12/19 13:28 Last Admin: 04/12/19 13:32 Dose: Not Given - Exam General: Alert, Oriented, Cooperative, No Acute Distress Lungs: Clear to Auscultation, Normal Respiratory Effort Cardiovascular: Regular Rate, Regular Rhythm GI/Abdominal Exam: Normal Bowel Sounds, Soft, No Distention, Other (tender in pelvic region, no pain with percussion) Extremities: Normal Inspection, No Pedal Edema - Problem List Review Problem List Initiated/Reviewed/Updated: Yes - My Orders Last 24 Hours: My Active Orders 04/15/19 09:00 Cyanocobalamin (Vitamin B12) [Vitamin B12] 500 mcg PO DAILY Folic Acid 1 mg PO DAILY Iron Polysaccharides Complex [Ferrex 150] 150 mg PO DAILY - Plan Plan:: A: 1. gram + cocci in pairs bacteremia, resolved 2. pelvic pain 3. microcytic anemia P: 1. Bacteremia-Spoke with lab and apparently first positive vial was a false positive. No growth. Patient had been receiving ceftriaxone daily due to suspected bacteremia, however, I have discontinued antibiotics due to false positive result. 2. Pelvic pain- Unsure what could be causing the pain. Work up has not shows a definitive source for the pain. Dr Avelar was consulted yesterday and stated she had some vaginal tenderness likely secondary to atrophic vaginal mucosa. Did not feel any erosions. 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 I spoke with Dr. Benitez who had originally performed her transobturator transurethral sling procedure about 8-10 years ago. She will see the patient later this evening. 3. Iron deficiency anemia- stool occult negative. Started iron supplementation. Dispo: likely dc tomorrow <Pancho Jones - Last Filed: 04/15/19 12:17> - General Info Admission Dx/Problem (Free Text): I have seen and examined the patient independently of Dr. Yvonne MD. I have reviewed and agree with the plan of care as outlined by Dr. Russell. I have discussed the case with the resident. Please see orders. I have discussed the case in detail with the patient. Patient is in severe pain. No imaging resulting in explanation of the pain. The patient also has blood cultures that have been thus far negative and antibiotics have been discontinued. - Patient Data Vitals - Most Recent: Last Vital Signs Temp 36.3 C 04/15/19 08:00 Pulse 67 04/15/19 08:00 Resp 18 04/15/19 08:00 BP 127/78 04/15/19 08:00 Pulse Ox 98 04/15/19 08:00 I&O - Last 24 Hours: Intake & Output 04/14/19 04/15/19 04/15/19 22:59 06:59 14:59 Intake Total 1455 1000 Output Total 1600 2500 Balance -145 -1500 Lab Results Last 24 Hours: Laboratory Results - last 24 hr 04/15/19 04/15/19 Range/Units 06:10 06:10 WBC 5.62 (4.0-11.0) K/uL RBC 4.50 (4.30-5.90) M/uL Hgb 10.7 L (12.0-16.0) g/dL Hct 34.8 L (36.0-46.0) % MCV 77.3 L (80.0-98.0) fL MCH 23.8 L (27.0-32.0) pg MCHC 30.7 L (31.0-37.0) g/dL RDW Std Deviation 48.1 (28.0-62.0) fl RDW Coeff of Uday 17 H (11.0-15.0) % Plt Count 335 (150-400) K/uL MPV 9.60 (7.40-12.00) fL Nucleated RBC % 0.0 /100WBC Nucleated RBCs # 0 K/uL Sodium 140 (136-145) mmol/L Potassium 3.7 (3.5-5.1) mmol/L Chloride 104 (98-107) mmol/L Carbon Dioxide 26.7 (21.0-32.0) mmol/L BUN 13 (7.0-18.0) mg/dL Creatinine 0.8 (0.6-1.0) mg/dL Est Cr Clr Drug Dosing 62.63 mL/min Estimated GFR (MDRD) > 60.0 ml/min Glucose 109 H (74-106) mg/dL Calcium 9.6 (8.5-10.1) mg/dL Domenic Results Last 24 Hours: Microbiology 04/12/19 14:00 Aerobic Blood Culture - Preliminary Blood - Venous - Lab Draw NO GROWTH AFTER 2 DAYS Anaerobic Blood Culture - Preliminary NO GROWTH AFTER 2 DAYS 04/12/19 13:15 Aerobic Blood Culture - Preliminary Blood - Venous NO GROWTH AFTER 2 DAYS Anaerobic Blood Culture - Preliminary NO GROWTH AFTER 2 DAYS 04/14/19 12:05 Stool Occult Blood (DOMENIC) - Final Stool / Feces NEGATIVE OCCULT BLOOD REFERENCE RANGE: NEGATIVE Med Orders - Current: Current Medications Acetaminophen (Tylenol) 650 mg PO Q4H PRN PRN Reason: Pain (Mild 1-3)/fever Last Admin: 04/13/19 22:49 Dose: 650 mg Cyanocobalamin (Vitamin B12) 500 mcg PO DAILY [facility] Last Admin: 04/15/19 09:20 Dose: 500 mcg Enoxaparin Sodium (Lovenox) 40 mg SUBCUT Q24H [facility] Last Admin: 04/14/19 14:42 Dose: 40 mg Folic Acid (Folic Acid) 1 mg PO DAILY [facility] Last Admin: 04/15/19 09:20 Dose: 1 mg Omeprazole (Omeprazole) 40 mg PO ACBREAKFAST [facility] Last Admin: 04/15/19 07:01 Dose: 40 mg Ondansetron HCl (Zofran) 4 mg IVPUSH Q6H PRN PRN Reason: Nausea/Vomiting Oxybutynin Chloride (Oxybutynin) 5 mg PO BID [facility] Last Admin: 04/15/19 09:20 Dose: 5 mg Oxycodone HCl (Oxycodone) 5 mg PO Q4H PRN PRN Reason: Pain (moderate 4-6) Last Admin: 04/15/19 12:07 Dose: 5 mg Polysaccharide Iron Complex (Ferrex 150) 150 mg PO DAILY [facility] Last Admin: 04/15/19 09:20 Dose: 150 mg Simvastatin (Zocor) 40 mg PO BEDTIME [facility] Last Admin: 04/14/19 21:02 Dose: 40 mg Venlafaxine HCl (Effexor Xr) 75 mg PO DAILY [facility] Last Admin: 04/15/19 09:20 Dose: 75 mg Discontinued Medications Gadobenate Dimeglumine (Multihance) 20 ml IVPUSH ONETIME STA Stop: 04/15/19 08:02 Last Admin: 04/15/19 08:04 Dose: 15 ml Sodium Chloride (Normal Saline) 1,000 mls @ 125 mls/hr IV STAT ONE Stop: 04/12/19 21:04 Last Admin: 04/12/19 13:58 Dose: 125 mls/hr Ceftriaxone Sodium/Dextrose 1 (gm/ Premix) 50 mls @ 100 mls/hr IV ONETIME ONE Stop: 04/12/19 13:55 Last Admin: 04/12/19 13:58 Dose: 100 mls/hr Sodium Chloride (Normal Saline) 1,000 mls @ 75 mls/hr IV ASDIRECTED [facility] Last Admin: 04/13/19 23:57 Dose: 75 mls/hr Ceftriaxone Sodium/Dextrose 1 (gm/ Premix) 50 mls @ 100 mls/hr IV Q24H [facility] Last Admin: 04/14/19 13:40 Dose: 100 mls/hr Ondansetron HCl (Zofran) 4 mg IVPUSH ONETIME ONE Stop: 04/12/19 13:06 Last Admin: 04/12/19 13:58 Dose: 4 mg Oxycodone HCl (Oxycodone) 5 mg PO ONETIME STA Stop: 04/13/19 23:42 Last Admin: 04/13/19 23:52 Dose: 5 mg Polyethylene Glycol (Miralax) 17 gm PO ONETIME ONE Stop: 04/14/19 10:59 Last Admin: 04/14/19 11:17 Dose: 17 gm Tenecteplase (Tnkase) 50 mg IV NOW STA; Protocol Stop: 04/12/19 13:28 Last Admin: 04/12/19 13:32 Dose: Not Given - Problem List & Annotations (1) Gram-positive bacteremia SNOMED Code(s): 920338158698 Code(s): R78.81 - BACTEREMIA Status: Acute Priority: High Current Visit : Yes (2) Right groin pain SNOMED Code(s): 41557026104947217 Code(s): R10.31 - RIGHT LOWER QUADRANT PAIN Status: Acute Priority: High Current Visit: Yes
[2019-04-15] MEDS: Enoxaparin 40 MG/0.4 ML Syringe SUBCUT SCH (14:58)
[2019-04-15] MEDS: Acetaminophen 325 MG Tab PO PRN (15:32)
[2019-04-15] MEDS ORDERED: Morphine 2 MG/ML Syringe IVPUSH PRN (15:39)
[2019-04-15] MEDS: Simvastatin 40 MG Tab PO SCH (20:37)
[2019-04-16] MEDS: oxyCODONE 5 MG Tab PO PRN ×3 (00:55→09:26)
--- NOTE | 2019-04-16 04:40 | CONS ---
DATE OF CONSULTATION: 04/15/2019 DATE OF : 1960 PRIMARY CARE PHYSICIAN: Unknown PCP CHIEF COMPLAINT: Pelvic pain. HISTORY OF PRESENT ILLNESS: This is a 59-year-old female. She presents with a 1-week history of pelvic pain. The onset was fairly acute and severe and started on the right side, but involves the suprapubic area is now more generalized on both sides. She denies fever, chills, nausea, vomiting, changes in bowel habit, changes in bladder habits. I was called to see the patient because in 2007, 11 years ago, she did have a hysterectomy with bilateral salpingo-oophorectomy and transobturator vaginal taping. In reviewing her records from that time, the indication for the hysterectomy was anemia related to menorrhagia. She requested having her ovaries removed due to multiple prior laparoscopies and surgeries and pelvic pain, which was felt to be due to her ovaries. This had previously been managed by Dr. Land. She had a transobturator mid-urethral sling placed, and on records in our clinic, she was seen several times postoperatively, initially for routine postoperative visits followed by annual exam and breast exams and was very satisfied with the sling at that time and she continues to be satisfied with the result of the sling related to her stress incontinence. With this new onset of pain, she is worried that it may be related to the sling. She denies any vaginal bleeding or discharge. She has discontinued her hormonal therapy that was started following her surgery. I did explain to her that she does not have any vaginal mesh placed for prolapse that was related to the mesh that was recently taken off the market. Her MRI did not show any migration of the sling or swelling in that area. She was actually initially admitted due to gram-positive cocci on Gram stain, which was later shown to be a false-positive Gram stain with final cultures all being negative. PAST MEDICAL HISTORY: Significant for fibromyalgia, depression, hypercholesterolemia, gastroesophageal reflux disease, CAD PAST SURGICAL HISTORY: Includes cholecystectomy, laparoscopically assisted vaginal hysterectomy with bilateral salpingo-oophorectomy, transobturator vaginal taping in 2007, angioplasty in 2009, multiple laparoscopies for pelvic pain by Dr. Land, colonoscopy in 2006, breast biopsy FAMILY HISTORY: Significant for mother with hypertension, diabetes. Father; prostate cancer, hypertension, diabetes. Siblings; hypertension, osteoporosis. Maternal grandmother with kidney disease. Paternal uncle, prostate cancer. Paternal aunt with ovarian cancer, at 80, heart disease and hypertension. 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 ALLERGIES: She has no known drug allergies. MEDICATIONS: Venlafaxine 75 mg daily, simvastatin 40 mg p.o., polysaccharide iron 150 mg daily, oxycodone, oxybutynin 5 mg p.o. b.i.d., omeprazole 40 mg p.o., Zofran as needed for nausea, enoxaparin, folic acid, Tylenol, B12 taken orally. REVIEW OF SYSTEMS: Negative for headache or visual changes. She is very tearful and distraught over her pain but may also have some incompletely treated depression. She denies shortness of breath, chest pain. Denies rash. Denies abnormal vaginal discharge, vaginal bleeding. She reports dyspareunia, but reports that this has worsened since she has discontinued her estrogen. She is at this point not a good historian related to any remote history. I suspect that she discontinued the estrogen at the time when she had the angioplasty that I have found in our chart. This is not recorded in the hospital chart. PHYSICAL EXAMINATION: VITAL SIGNS: Temperature is 36.1, pulse is 67, blood pressure 114/69. GENERAL: She is alert and oriented. She appears cheerful. ABDOMEN: Soft, nontender, nondistended. EXTREMITIES: Show trace edema. External genitalia appears normal. She has no areas of point tenderness. She is diffusely tender over the lower abdomen, but not tender actually within the groin area. I reviewed MRI. I was unable to palpate the lipoma in her upper thigh; however, on MRI, this was fairly deep beneath the muscle. LABORATORY STUDIES: Include white blood cell count of 5.6, hemoglobin 10.7, hematocrit 34.8, platelet count of 335,000. Sodium is 140, potassium is 3.7, chloride is 104, CO2 is 26, BUN 13, creatinine 0.8, glucose is 109, calcium is 9.6. Urine is negative. Bilirubin 0.3, AST 26, ALT 36, alkaline phosphatase 127, total protein 7.1, albumin 3.4, globulin 3.7, albumin-globulin ratio is 0.9. Folate is low at 5.3 with the lower end of normal being 8.6. ASSESSMENT AND PLAN: 1. Acute pain, etiology is unclear. It would be highly unlikely to develop acute pain due to a transobturator sling that was performed 11 years ago. I did not repeat a pelvic exam as this was very uncomfortable for her since Dr. Avelar has already done one and it was very uncomfortable for her She has no acute reasons to repeat a pelvic exam as he has already documented that there is no mesh erosion. I would like to see her back in the clinic so that a complete examination can be performed with appropriate positioning and instruments. I do note that the large lipoma in her leg is on the right side where her pain initiated. Additionally, her alkaline phosphatase is elevated and therefore consideration may be given to further evaluation of this area. Continue with pain management. 2. Anemia. She is noted to have a low folic acid. Further evaluation for anemia is recommended. She has not had any vaginal bleeding. I do note that Hemoccult is negative, but workup for her anemia especially given her current situation would be appropriate. When pain management is under control, I will be happy to see the patient in the clinic as an outpatient for further exam and evaluation. UMA SPAIN /[id number] JOAN
[2019-04-16 05:56] LABS: BLOOD UREA NITROGEN,BUN 14 mg/dL (7.0-18.0); CARBON DIOXIDE,CO2 29.4 mmol/L (21.0-32.0); CHLORIDE,CL 104 mmol/L (98-107); GLUCOSE RANDOM 116 mg/dL (74-106); POTASSIUM,K 3.9 mmol/L (3.5-5.1); SODIUM,NA 142 mmol/L (136-145)
[2019-04-16] MEDS: Omeprazole 20 MG Cap.CR PO SCH (06:33)
[2019-04-16 07:57] VITALS: BP 113/61; PULSE 68
[2019-04-16] MEDS: Venlafaxine 75 MG Cap.ER PO SCH (08:31)
[2019-04-16] MEDS: Cyanocobalamin (Vitamin B12) 500 MCG Tab PO SCH (08:32)
[2019-04-16] MEDS: Iron Polysaccharides Complex 150 MG Cap PO SCH (08:32)
[2019-04-16] MEDS: Folic Acid 1 MG Tab PO SCH (08:32)
[2019-04-16] MEDS: Oxybutynin 5 MG Tab PO SCH (08:32)
--- NOTE | 2019-04-16 10:36 | PCM.DCSUM1 ---
<Lio Morris - Last Filed: 04/16/19 15:20> Discharge Summary - Hospital Course Free Text/Narrative:: 59 y/o female with history of previous total hysterectomy and cholecystectomy who was admitted for suspected gram positive cocci in pairs bacteremia. Patient had been seen multiple times in the ER for pelvic pain in the past 1 week. Imaging which included CT abdomen/pelvis, pelvic ultrasound did not show any definitive etiology to explain patient's pelvic pain. She was treated with Ceftriaxone during her hospitalization for suspected gram positive cocci in pairs bacteremia. Her antibiotics were subsequently discontinued after checking with lab. Apparently it had been a false positive reading and patient had remained afebrile and subsequent blood cultures were negative. In regards to the pelvic pain. Dr. Avelar was consulted who examined the patient and noted that she had some right intravaginal tenderness. He did not notice any intravaginal wall erosion since patient had undergone a transobturator suburethral sling with mesh performed by Dr. Benitez more than 10 years ago. An MRI pelvis dis not show any pelvic abscesses or abnormalities. It did show a right groin lipoma measuring about 4 cm in diameter however this was not around the area where patient was complaining of pain. Dr. Benitez was consulted per patient's request and Dr. Benitez graciously evaluated the patient and recommended outpatient follow-up with her in clinic. Patient was discharged home on Oxycodone 5 mg PO Q6H PRN for pain (#15 tabs) and Premarin cream. - Discharge Data Discharge Date: 04/16/19 Discharge Disposition: Home, Self-Care 01 Condition: Fair - Patient Summary/Data Consults: Consultations 04/12/19 16:15 Consult to Occupational Therapy [OT Evaluation and Treatment] [CONS] Routine PT Evaluation and Treatment [CONS] Routine 04/14/19 07:03 Consult to Physician [CONS] Routine - Patient Instructions Diet: Usual Diet as Tolerated Activity: As Tolerated Notify Provider of: Fever, Increased Pain, Swelling and Redness, Drainage, Nausea and/or Vomiting - Discharge Plan *PRESCRIPTION DRUG MONITORING PROGRAM REVIEWED*: No *COPY OF PRESCRIPTION DRUG MONITORING REPORT IN PATIENT CONRADO: No Prescriptions/Med Rec: Cyanocobalamin (Vitamin B12) [Vitamin B12] 500 mcg PO DAILY #30 tablet Estrogens, Conjugated [Premarin Vaginal Crm] 1 applic VAG DAILY #1 tube Folic Acid 1 mg PO DAILY #30 tablet Iron Polysaccharides Complex [Ferrex 150] 150 mg PO DAILY #30 cap oxyCODONE 5 mg PO Q6H PRN #15 tablet PRN Reason: Pain (Moderate 4-6) Home Medications: Home Meds Esomeprazole Magnesium [Nexium] 40 mg PO DAILY 04/20/16 [History] Venlafaxine HCl [Venlafaxine ER] 75 mg PO DAILY 04/20/16 [History] Simvastatin [Zocor] 40 mg PO BEDTIME 04/10/19 [History] Cyanocobalamin (Vitamin B12) [Vitamin B12] 500 mcg PO DAILY #30 tablet 04/16/19 [Rx] Estrogens, Conjugated [Premarin Vaginal Crm] 1 applic VAG DAILY #1 tube [Rx] Folic Acid 1 mg PO DAILY #30 tablet 04/16/19 [Rx] Iron Polysaccharides Complex [Ferrex 150] 150 mg PO DAILY #30 cap 04/16/19 [Rx] oxyCODONE 5 mg PO Q6H PRN #15 tablet 04/16/19 [Rx] Patient Handouts: Oxycodone tablets or capsules, Vitamin B12 Deficiency, Easy- to-Read, Polysaccharide-Iron Complex tablets or capsules, Conjugated Estrogens tablets, Menorrhagia, Itvm-sm-Ppvo, Bacteremia, Folic Acid, Vitamin B9 tablets Referrals: [facility] [Outside] Sara Benitez MD [Physician] - 04/24/19 1:00 pm - Discharge Summary/Plan Comment DC Time >30 min.: No - Patient Data Vitals - Most Recent: Last Vital Signs Temp 36.1 C 04/16/19 07:56 Pulse 68 04/16/19 07:56 Resp 16 04/16/19 07:56 BP 113/61 04/16/19 07:56 Pulse Ox 93 L 04/16/19 07:56 Weight - Most Recent: 79.379 kg I&O - Last 24 hours: Intake & Output 04/15/19 04/16/19 04/16/19 22:59 06:59 14:59 Intake Total 1380 1000 Output Total 2900 1800 Balance -1520 -800 Lab Results - Last 24 hrs: Laboratory Results - last 24 hr 04/16/19 04/16/19 Range/Units 04:50 04:50 WBC 6.28 (4.0-11.0) K/uL RBC 4.51 (4.30-5.90) M/uL Hgb 10.6 L (12.0-16.0) g/dL Hct 35.0 L (36.0-46.0) % MCV 77.6 L (80.0-98.0) fL MCH 23.5 L (27.0-32.0) pg MCHC 30.3 L (31.0-37.0) g/dL RDW Std Deviation 48.0 (28.0-62.0) fl RDW Coeff of Uday 17 H (11.0-15.0) % Plt Count 347 (150-400) K/uL MPV 10.00 (7.40-12.00) fL Nucleated RBC % 0.0 /100WBC Nucleated RBCs # 0 K/uL Sodium 142 (136-145) mmol/L Potassium 3.9 (3.5-5.1) mmol/L Chloride 104 (98-107) mmol/L Carbon Dioxide 29.4 (21.0-32.0) mmol/L BUN 14 (7.0-18.0) mg/dL Creatinine 0.8 (0.6-1.0) mg/dL Est Cr Clr Drug Dosing 62.63 mL/min Estimated GFR (MDRD) > 60.0 ml/min Glucose 116 H (74-106) mg/dL Calcium 9.6 (8.5-10.1) mg/dL JUAN Results - Last 24 hrs: Microbiology 04/12/19 14:00 Aerobic Blood Culture - Preliminary Blood - Venous - Lab Draw NO GROWTH AFTER 3 DAYS Anaerobic Blood Culture - Preliminary NO GROWTH AFTER 3 DAYS 04/12/19 13:15 Aerobic Blood Culture - Preliminary Blood - Venous NO GROWTH AFTER 3 DAYS Anaerobic Blood Culture - Preliminary NO GROWTH AFTER 3 DAYS Med Orders - Current: Current Medications Acetaminophen (Tylenol) 650 mg PO Q4H PRN PRN Reason: Pain (Mild 1-3)/fever Last Admin: 04/15/19 15:32 Dose: 650 mg Cyanocobalamin (Vitamin B12) 500 mcg PO DAILY PENDING SALE TO [facility] Last Admin: 04/16/19 08:32 Dose: 500 mcg Enoxaparin Sodium (Lovenox) 40 mg SUBCUT Q24H PENDING SALE TO [facility] Last Admin: 04/15/19 14:58 Dose: 40 mg Folic Acid (Folic Acid) 1 mg PO DAILY PENDING SALE TO [facility] Last Admin: 04/16/19 08:32 Dose: 1 mg Morphine Sulfate (Morphine) 2 mg IVPUSH Q2H PRN PRN Reason: Pain Omeprazole (Omeprazole) 40 mg PO ACBREAKFAST PENDING SALE TO [facility] Last Admin: 04/16/19 06:33 Dose: 40 mg Ondansetron HCl (Zofran) 4 mg IVPUSH Q6H PRN PRN Reason: Nausea/Vomiting Oxybutynin Chloride (Oxybutynin) 5 mg PO BID PENDING SALE TO [facility] Last Admin: 04/16/19 08:32 Dose: 5 mg Oxycodone HCl (Oxycodone) 5 mg PO Q4H PRN PRN Reason: Pain (moderate 4-6) Last Admin: 04/16/19 09:26 Dose: 5 mg Polysaccharide Iron Complex (Ferrex 150) 150 mg PO DAILY PENDING SALE TO [facility] Last Admin: 04/16/19 08:32 Dose: 150 mg Simvastatin (Zocor) 40 mg PO BEDTIME PENDING SALE TO [facility] Last Admin: 04/15/19 20:37 Dose: 40 mg Venlafaxine HCl (Effexor Xr) 75 mg PO DAILY PENDING SALE TO [facility] Last Admin: 04/16/19 08:31 Dose: 75 mg Discontinued Medications Gadobenate Dimeglumine (Multihance) 20 ml IVPUSH ONETIME STA Stop: 04/15/19 08:02 Last Admin: 04/15/19 08:04 Dose: 15 ml Sodium Chloride (Normal Saline) 1,000 mls @ 125 mls/hr IV STAT ONE Stop: 04/12/19 21:04 Last Admin: 04/12/19 13:58 Dose: 125 mls/hr Ceftriaxone Sodium/Dextrose 1 (gm/ Premix) 50 mls @ 100 mls/hr IV ONETIME ONE Stop: 04/12/19 13:55 Last Admin: 04/12/19 13:58 Dose: 100 mls/hr Sodium Chloride (Normal Saline) 1,000 mls @ 75 mls/hr IV ASDIRECTED PENDING SALE TO [facility] Last Admin: 04/13/19 23:57 Dose: 75 mls/hr Ceftriaxone Sodium/Dextrose 1 (gm/ Premix) 50 mls @ 100 mls/hr IV Q24H PENDING SALE TO [facility] Last Admin: 04/14/19 13:40 Dose: 100 mls/hr Ondansetron HCl (Zofran) 4 mg IVPUSH ONETIME ONE Stop: 04/12/19 13:06 Last Admin: 04/12/19 13:58 Dose: 4 mg Oxycodone HCl (Oxycodone) 5 mg PO ONETIME STA Stop: 04/13/19 23:42 Last Admin: 04/13/19 23:52 Dose: 5 mg Polyethylene Glycol (Miralax) 17 gm PO ONETIME ONE Stop: 04/14/19 10:59 Last Admin: 04/14/19 11:17 Dose: 17 gm Tenecteplase (Tnkase) 50 mg IV NOW STA; Protocol Stop: 04/12/19 13:28 Last Admin: 04/12/19 13:32 Dose: Not Given <Ramiro Whaley - Last Filed: 04/20/19 19:43> Discharge Summary - Patient Summary/Data Consults: Consultations 04/12/19 16:15 Consult to Occupational Therapy [OT Evaluation and Treatment] [CONS] Routine PT Evaluation and Treatment [CONS] Routine 04/14/19 07:03 Consult to Physician [CONS] Routine - Patient Data Vitals - Most Recent: Last Vital Signs Temp 36.1 C 04/16/19 07:56 Pulse 68 04/16/19 07:56 Resp 16 04/16/19 07:56 BP 113/61 04/16/19 07:56 Pulse Ox 93 L 04/16/19 07:56 Med Orders - Current: Current Medications Discontinued Medications Acetaminophen (Tylenol) 650 mg PO Q4H PRN PRN Reason: Pain (Mild 1-3)/fever Last Admin: 04/15/19 15:32 Dose: 650 mg Cyanocobalamin (Vitamin B12) 500 mcg PO DAILY PENDING SALE TO [facility] Last Admin: 04/16/19 08:32 Dose: 500 mcg Enoxaparin Sodium (Lovenox) 40 mg SUBCUT Q24H [facility] Last Admin: 04/15/19 14:58 Dose: 40 mg Folic Acid (Folic Acid) 1 mg PO DAILY PENDING SALE TO [facility] Last Admin: 04/16/19 08:32 Dose: 1 mg Gadobenate Dimeglumine (Multihance) 20 ml IVPUSH ONETIME STA Stop: 04/15/19 08:02 Last Admin: 04/15/19 08:04 Dose: 15 ml Sodium Chloride (Normal Saline) 1,000 mls @ 125 mls/hr IV STAT ONE Stop: 04/12/19 21:04 Last Admin: 04/12/19 13:58 Dose: 125 mls/hr Ceftriaxone Sodium/Dextrose 1 (gm/ Premix) 50 mls @ 100 mls/hr IV ONETIME ONE Stop: 04/12/19 13:55 Last Admin: 04/12/19 13:58 Dose: 100 mls/hr Sodium Chloride (Normal Saline) 1,000 mls @ 75 mls/hr IV ASDIRECTED PENDING SALE TO [facility] Last Admin: 04/13/19 23:57 Dose: 75 mls/hr Ceftriaxone Sodium/Dextrose 1 (gm/ Premix) 50 mls @ 100 mls/hr IV Q24H PENDING SALE TO [facility] Last Admin: 04/14/19 13:40 Dose: 100 mls/hr Morphine Sulfate (Morphine) 2 mg IVPUSH Q2H PRN PRN Reason: Pain Omeprazole (Omeprazole) 40 mg PO ACBREAKFAST PENDING SALE TO [facility] Last Admin: 04/16/19 06:33 Dose: 40 mg Ondansetron HCl (Zofran) 4 mg IVPUSH ONETIME ONE Stop: 04/12/19 13:06 Last Admin: 04/12/19 13:58 Dose: 4 mg Ondansetron HCl (Zofran) 4 mg IVPUSH Q6H PRN PRN Reason: Nausea/Vomiting Oxybutynin Chloride (Oxybutynin) 5 mg PO BID PENDING SALE TO [facility] Last Admin: 04/16/19 08:32 Dose: 5 mg Oxycodone HCl (Oxycodone) 5 mg PO Q4H PRN PRN Reason: Pain (moderate 4-6) Last Admin: 04/16/19 09:26 Dose: 5 mg Oxycodone HCl (Oxycodone) 5 mg PO ONETIME STA Stop: 04/13/19 23:42 Last Admin: 04/13/19 23:52 Dose: 5 mg Polyethylene Glycol (Miralax) 17 gm PO ONETIME ONE Stop: 04/14/19 10:59 Last Admin: 04/14/19 11:17 Dose: 17 gm Polysaccharide Iron Complex (Ferrex 150) 150 mg PO DAILY PENDING SALE TO [facility] Last Admin: 04/16/19 08:32 Dose: 150 mg Simvastatin (Zocor) 40 mg PO BEDTIME PENDING SALE TO [facility] Last Admin: 04/15/19 20:37 Dose: 40 mg Tenecteplase (Tnkase) 50 mg IV NOW STA; Protocol Stop: 04/12/19 13:28 Last Admin: 04/12/19 13:32 Dose: Not Given Venlafaxine HCl (Effexor Xr) 75 mg PO DAILY [facility] Last Admin: 04/16/19 08:31 Dose: 75 mg - Free Text/Narrative Note: I have evaluated the patient. I have discussed findings and treatment plan with resident. I agree with the assessment and plan outlined in the following note.
== END 2019-04-16 11:30 | disposition home or self-care (01) ==
LOC: MW.ED 12:52 → MW.MS 13:47
PROVIDERS: ADMIT Internal Medicine; ATTEND Internal Medicine
DX: R78.81 Bacteremia (principal); R10.2 Pelvic and perineal pain; K21.9 Gastro-esophageal reflux disease without esophagitis; F32.9 Major depressive disorder, single episode, unspecified; M79.7 Fibromyalgia; I25.10 Atherosclerotic heart disease of native coronary artery without angina pectoris; E78.00 Pure hypercholesterolemia, unspecified; D64.9 Anemia, unspecified; Z96.0 Presence of urogenital implants; Z90.710 Acquired absence of both cervix and uterus; Z79.899 Other long term (current) drug therapy
CPT/HCPCS: 36415; 72197; 74018; 80048; 80053; 81003; 82272; 82607; 82728; 82746; 83550; 83605; 85025; 85027; 85652; 87040; 93005; 96361; 96365; 96366; 96372; 96375; 97110; 97161; 97530; 99285; A9270; A9577; G0378; J0696; J1650; J2405; J7040; 99283

== ENCOUNTER 2019-05-12 08:34 | Day surgery (SDC) | payer BC ==
[~2019-05-12 08:34] MED LIST: Lactated Ringers 1,000 ML IV SCH; Sodium Chloride 0.9% 10 ML SDV IV PRN; Sodium Chloride 0.9% 10 ML Syringe FLUSH PRN; Sodium Chloride 0.9% 2.5 ML Syringe FLUSH PRN
--- NOTE | 2019-05-12 09:14 | PCM.PREANE ---
Preanesthetic Assessment - Anesthesia/Transfusion/Family Hx Anesthesia History: Prior Anesthesia Without Reaction Family History of Anesthesia Reaction: No Transfusion History: No Prior Transfusion(s) Intubation History: Unknown - Review of Systems General: No Symptoms Pulmonary: No Symptoms Cardiovascular: No Symptoms Gastrointestinal: Abdominal Pain Neurological: No Symptoms Other: Reports: None - Physical Assessment Height: 5 ft 3 in Weight: 82.1 kg ASA Class: 2 Mental Status: Alert & Oriented x3 Airway Class: Mallampati = 2 Dentition: Reports: Normal Dentition, Implants (x5 left lower (side)) Thyro-Mental Finger Breadths: 3 Mouth Opening Finger Breadths: 3 ROM/Head Extension: Full Lungs: Clear to Auscultation, Normal Respiratory Effort Cardiovascular: Regular Rate, Regular Rhythm - Allergies Allergies/Adverse Reactions: Allergies Allergy/AdvReac Type Severity Reaction Status Date / Time No Known Allergies Allergy Verified 05/07/19 09:57 - Blood Blood Available: No - Anesthesia Plan Pre-Op Medication Ordered: None - Acknowledgements Anesthesia Type Planned: MAC Pt an Appropriate Candidate for the Planned Anesthesia: Yes Alternatives and Risks of Anesthesia Discussed w Pt/Guardian: Yes Pt/Guardian Understands and Agrees with Anesthesia Plan: Yes PreAnesthesia Questionnaire HEENT History: Reports: Other (See Below) Other HEENT History: wears glasses, hx of osteomyelitis in jaw Cardiovascular History: Reports: High Cholesterol, Hypertension Respiratory History: Reports: Sleep Apnea Other Respiratory History: uses a CPAP Gastrointestinal History: Reports: GERD Other Genitourinary History: bladder surgery [employer]ER History: Reports: Musculoskeletal History: Reports: Fracture, Neck Pain, Chronic Other Musculoskeletal History: hx of fx ankle Neurological History: Reports: None, Other (See Below) (h/o migraines) Psychiatric History: Reports: Anxiety, Depression Endocrine/Metabolic History: Reports: Obesity/BMI 30+ Hematologic History: Reports: Anemia Immunologic History: Reports: None Oncologic (Cancer) History: Reports: None Dermatologic History: Reports: None - Infectious Disease History Infectious Disease History: Reports: Chicken Pox, Mumps - Past Surgical History Head Surgeries/Procedures: Reports: None HEENT Surgical History: Reports: Oral Surgery Other HEENT Surgeries/Procedures: has 5 lower dental implants GI Surgical History: Reports: Cholecystectomy Female Surgical History: Reports: Breast Biopsy (lumpectomy), Hysterectomy, Oophorectomy, Other (See Below) Other Female Surgeries/Procedures: hx of bladder suspension - SUBSTANCE USE Smoking Status *Q: Never Smoker Recreational Drug Use History: No - HOME MEDS Home Medications: Home Meds Esomeprazole Magnesium [Nexium] 40 mg PO DAILY 04/20/16 [History] Venlafaxine HCl [Venlafaxine ER] 75 mg PO DAILY 04/20/16 [History] Simvastatin [Zocor] 40 mg PO BEDTIME 04/10/19 [History] Cyanocobalamin (Vitamin B12) [Vitamin B12] 500 mcg PO DAILY #30 tablet 04/16/19 [Rx] Folic Acid 1 mg PO DAILY #30 tablet 04/16/19 [Rx] Iron Polysaccharides Complex [Ferrex 150] 150 mg PO DAILY #30 cap 04/16/19 [Rx] Metoprolol Succinate 25 mg PO BEDTIME 05/07/19 [History] - CURRENT (IN HOUSE) MEDS Current Meds: Current Medications Lactated Ringer's (Ringers, Lactated) 1,000 mls @ 125 mls/hr IV ASDIRECTED [facility] Sodium Chloride (Saline Flush) 10 ml FLUSH ASDIRECTED PRN PRN Reason: Keep Vein Open Sodium Chloride (Saline Flush) 2.5 ml FLUSH ASDIRECTED PRN PRN Reason: Keep Vein Open Sodium Chloride (Saline Flush) 10 ml FLUSH ASDIRECTED PRN PRN Reason: Keep Vein Open Sodium Chloride (Saline Flush) 2.5 ml FLUSH ASDIRECTED PRN PRN Reason: Keep Vein Open Sodium Chloride (Normal Saline) 10 ml IV ASDIRECTED PRN PRN Reason: IV Use
[2019-05-12] MEDS ORDERED: Propofol 200 MG/20 ML SDV ONE (09:39)
[2019-05-12] MEDS ORDERED: Midazolam 1 MG/ML 2 ML SDV ONE (09:39)
[2019-05-12] MEDS ORDERED: Lidocaine 2% 5 ML SDV ONE (09:41)
[2019-05-12] MEDS ORDERED: Glycopyrrolate 0.2 MG/ML SDV ONE (09:41)
--- NOTE | 2019-05-12 12:07 | PCM.OPNOTE ---
- General Post-Op/Procedure Note Date of Surgery/Procedure: 05/12/19 Operative Procedure(s): Diagnostic EGD and colonoscopy Findings: Hyperplastic gastric and sigmoid colon polyps Pre Op Diagnosis: Iron Deficiency Anemia Post-Op Diagnosis: Gastric hyperplastic polyps, hyperplastic colon polyps Anesthesia Technique: [facility] [place] Primary Surgeon: Martita Corado Condition: Good
--- NOTE | 2019-05-12 12:24 | PCM.POSTAN ---
POST ANESTHESIA ASSESSMENT - MENTAL STATUS Mental Status: Alert, Oriented - VITAL SIGNS Vital Signs: Last Vital Signs Temp 35.7 C 05/12/19 08:50 Pulse 72 05/12/19 12:12 Resp 15 05/12/19 12:12 BP 102/69 05/12/19 12:12 Pulse Ox 97 05/12/19 12:12 - RESPIRATORY Respiratory Status: Respiratory Rate WNL, Airway Patent, O2 Saturation Stable - CARDIOVASCULAR CV Status: Pulse Rate WNL, Blood Pressure Stable - GASTROINTESTINAL GI Status: No Symptoms - PAIN Pain Score: 0 - POST OP HYDRATION Hydration Status: Adequate & Stable - OBSERVATIONS Free Text/Narrative:: no anesthesia problems
--- NOTE | 2019-05-12 13:19 | PCM48HPAN ---
Post Anesthesia Note - EVALUATION WITHIN 48HRS OF ANESTHETIC Vital Signs in Normal Range: Yes Patient Participated in Evaluation: Yes Respiratory Function Stable: Yes Airway Patent: Yes Cardiovascular Function Stable: Yes Hydration Status Stable: Yes Pain Control Satisfactory: Yes Nausea and Vomiting Control Satisfactory: Yes Mental Status Recovered: Yes Vital Signs: Last Vital Signs Temp 35.7 C 05/12/19 08:50 Pulse 72 05/12/19 12:12 Resp 15 05/12/19 12:12 BP 102/69 05/12/19 12:12 Pulse Ox 97 05/12/19 12:12 - COMMENTS/OBSERVATIONS Free Text/Narrative:: no anesthesia problems
[2019-05-12 16:07] VITALS: BP 112/67
--- NOTE | 2019-05-12 18:00 | OR ---
SURGEON: MARTITA CORADO MD DATE OF PROCEDURE: 05/12/2019 PREOPERATIVE DIAGNOSIS: Iron-deficiency anemia. POSTOPERATIVE DIAGNOSIS: 1. Hyperplastic polyp of the stomach. 2. Hyperplastic colon polyp. PROCEDURE PERFORMED: Diagnostic esophagogastroduodenoscopy and colonoscopy. PRIMARY SURGEON: Martita Corado MD. ANESTHESIA: MAC. INSTRUMENT USED: Olympus endoscope/Olympus colonoscope. EXTENT OF EXAM: To the second portion of duodenum, to the cecum. PREPARATION: Good. LIMITATIONS: None indications. INDICATION FOR EXAMINATION: Patient is a 59-year-old female with iron-deficiency anemia. I explained the need for diagnostic EGD and colonoscopy. I explained the procedure, expected perioperative course, and risks including bleeding, infection, or damage to surrounding structures including perforation. The patient verbalized understanding and wishes to proceed. PROCEDURE IN DETAIL: The patient was brought to the endoscopy suite and placed in the left lateral decubitus position. A time-out was completed verifying the patient's name, age, date of , allergies, and procedure to be performed. Monitored anesthesia care was induced and continuous oxygen was provided via nasal cannula throughout the procedure. A bite block was placed in the patient's mouth. After adequate sedation was achieved, a well-lubricated endoscope was placed in the patient's mouth and advanced under direct visualization to the second portion of duodenum. This appeared normal and a photograph was taken. The scope was then fully withdrawn while examining the color, texture, anatomy, and integrity of mucosa of the upper GI tract. The patient's duodenum appeared normal. At the very base of the antrum, there appeared to be hyperplastic polyp and a photograph of this was taken. The scope was then retroflexed and a photograph taken of the GE junction which appeared normal. The scope was brought back into the antrum and I biopsied the area that appeared to be hyperplastic polyp. This was labeled as antral biopsy #1. A biopsy was then taken of normal-appearing antral mucosa and labeled as antral biopsy #2. The patient was noted to have multiple hyperplastic-appearing polyps in the body of the stomach. Biopsies were taken of normal-appearing gastric body mucosa as well as the fundus and sent for histologic review and H. pylori testing. The scope was brought into the distal esophagus. A photograph was taken of the Z-line. This appeared normal. The remainder of the esophageal mucosa was free of pathology. The scope was removed and this part of the procedure terminated. A digital rectal exam was performed. This exam was within normal limits. A well-lubricated colonoscope was inserted in the rectum and advanced under direct visualization to the level of cecum. Cecum was identified by both visual and anatomic landmarks. A photograph was taken of the cecal cap. However, I was unable to retroflex the scope within the cecum due to looping of the scope more proximally. The scope was then fully withdrawn while examining the color, texture, anatomy, and integrity of the mucosa from the cecum to the anal canal. The patient was found to have some small hyperplastic-appearing polyps in the distal sigmoid colon. The scope was otherwise normal. The scope was brought into the rectum and retroflexed to allow visualization of the anal canal opening. This appeared normal and a photograph was taken. Scope was then straightened out and fully withdrawn. The cecum to anus time was 10 minutes. The patient tolerated the procedure well and was taken to PACU in stable condition. ENDOSCOPIC DIAGNOSIS: Hyperplastic polyps of the stomach and sigmoid colon. RECOMMENDATIONS: Follow up in clinic in 2 weeks. NUBIA SPAIN /[id number]
== END 2019-05-12 13:10 | disposition home or self-care (01) ==
LOC: MW.SDS 08:34
PROVIDERS: ATTEND Surgery
DX: D50.9 Iron deficiency anemia, unspecified (principal); K31.7 Polyp of stomach and duodenum; K63.5 Polyp of colon; K21.9 Gastro-esophageal reflux disease without esophagitis; I10 Essential (primary) hypertension; E78.00 Pure hypercholesterolemia, unspecified; F41.9 Anxiety disorder, unspecified; Z79.899 Other long term (current) drug therapy
CPT/HCPCS: 43239; 45378; J2001; J2250; J2704; J3490; J7120; 88305; 88312

== ENCOUNTER 2019-07-20 21:34 | Observation (INO) | payer BC ==
[~2019-07-20 21:34] MED LIST changes: -Lactated Ringers 1,000 ML IV SCH; +Metoprolol Succinate 25 MG Tab.ER PO SCH; -Sodium Chloride 0.9% 10 ML SDV IV PRN; -Sodium Chloride 0.9% 10 ML Syringe FLUSH PRN; -Sodium Chloride 0.9% 2.5 ML Syringe FLUSH PRN
[2019-07-20] MEDS ORDERED: Sodium Chloride 0.9% 2.5 ML Syringe FLUSH PRN ×2 (21:39→23:55)
[2019-07-20] MEDS ORDERED: Sodium Chloride 0.9% 10 ML Syringe FLUSH PRN (21:39)
[2019-07-20] MEDS ORDERED: Aspirin 81 MG Tab.Chew PO ONE (21:46)
[2019-07-20] MEDS ORDERED: Nitroglycerin 2% Oint 1 GM UD Packet TOP ONE (21:46)
[2019-07-20] MEDS ORDERED: Pantoprazole 40 MG Vial IVPUSH ONE (21:51)
--- NOTE | 2019-07-20 21:51 | EDM.PDOC ---
ED HPI GENERAL MEDICAL PROBLEM - General Chief Complaint: Chest Pain Stated Complaint: CHEST PAIN Time Seen by Provider: 07/20/19 21:38 - History of Present Illness INITIAL COMMENTS - FREE TEXT/NARRATIVE: HISTORY AND PHYSICAL: History of present illness: The patient is a 59-year-old female with a history of hypertension and hypercholesterolemia who follows at [facility] and she does have a history of a heart catheter in 2009 after having an abnormal stress test and persistent hypertension and who presents with complaints of chest squeezing pressure radiating to her neck that started about 6:30 PM, 3 hours ago. The patient said that she felt off all day but nothing specific and then she was at restoration doing her normal Saturday night pain and she had some nausea and a small episode of vomiting in her mouth associated with the start of this discomfort. She never felt short of breath she never felt lightheaded nor did she pass out or blackout. She had an upper respiratory infection several weeks ago but that has cleared and she has had no recent cough fever abdominal pain or diarrhea. She currently does not feel nauseated. She says that at its worse the chest discomfort squeezing and burning which originates in her mid chest and radiates to her neck was 4-5/10 and currently it is a 1/10. She did not take any medications at home for the pain and took no aspirin. The patient tells me that the heart catheter that she had 9 years ago was negative for any blockages and no interventions were performed. She did not take her evening meds including her blood pressure pill and feels like her blood pressure is elevated. The patient says that she does take antacids and did not refill her prescription and has had 3 days without her antacids and she was not sure if this was triggering it. She does say that her GI symptoms are not similar to what she is experiencing this evening and tonight is much worse. She has no leg pain or swelling and has been eating and drinking normally. The patient has no significant social history and has no family history of cardiac disease Review of systems: As per history of present illness and below otherwise all systems reviewed and negative. Past medical history: As per history of present illness and as reviewed below otherwise noncontributory. Surgical history: As per history of present illness and as reviewed below otherwise noncontributory. Social history: No reported history of drug or alcohol abuse. Family history: As per history of present illness and as reviewed below otherwise noncontributory. Physical exam: General: Well-developed well-nourished female who is nontoxic and vital signs were noted by me. She ambulated into the ED without distress and speaks clearly and easily HEENT: Atraumatic, normocephalic, pupils reactive, negative for conjunctival pallor or scleral icterus, mucous membranes moist, throat clear, neck supple, nontender, trachea midline. Lungs: Clear to auscultation, breath sounds equal bilaterally, chest nontender. Heart: S1S2, regular rate and rhythm no overt murmurs Abdomen: Soft, nondistended, nontender. Negative for masses or hepatosplenomegaly. Negative for costovertebral tenderness. Pelvis: Stable nontender. Genitourinary: Deferred. Rectal: Deferred. Extremities: Atraumatic, negative for cords or calf pain. Neurovascular unremarkable. No pedal edema or leg asymmetry Neuro: Awake, alert, oriented. Cranial nerves II through XII unremarkable. Cerebellum unremarkable. Motor and sensory unremarkable throughout. Exam nonfocal. Skin: No diaphoresis normal turgor no overt rashes or lesions Diagnostics: EKG CBC CMP troponin amylase lipase chest x-ray Therapeutics: IV O2 monitor aspirin Nitropaste protonix As the patient currently rates her pain as a 1/[address], Nitropaste and continue to evaluate the patient's symptoms Patient says that the pressure and burning will come and go but currently it is the same as when she arrived. I discussed this case with Dr. Whaley at 2231 and he agrees with observation admission and the patient is also agreeable. Impression: Chest pain rule out ACS Definitive disposition and diagnosis as appropriate pending reevaluation and review of above. - Related Data Allergies Allergy/AdvReac Type Severity Reaction Status Date / Time No Known Allergies Allergy Verified 07/20/19 21:44 Home Meds: Home Meds Esomeprazole Magnesium [Nexium] 40 mg PO DAILY 04/20/16 [History] Venlafaxine HCl [Venlafaxine ER] 150 mg PO DAILY 04/20/16 [History] Simvastatin [Zocor] 40 mg PO BEDTIME 04/10/19 [History] Cyanocobalamin (Vitamin B12) [Vitamin B12] 500 mcg PO DAILY #30 tablet 04/16/19 [Rx] Folic Acid 1 mg PO DAILY #30 tablet 04/16/19 [Rx] Iron Polysaccharides Complex [Ferrex 150] 150 mg PO DAILY #30 cap 04/16/19 [Rx] Metoprolol Succinate 25 mg PO BEDTIME 05/07/19 [History] Estrogens, Conjugated [Premarin Vaginal Crm] 0.625 mg .XX ASDIRECTED 07/20/19 [ History] Past Medical History HEENT History: Reports: Impaired Vision, Other (See Below) Other HEENT History: wears glasses, hx of osteomyelitis in jaw Cardiovascular History: Reports: High Cholesterol, Hypertension Respiratory History: Reports: Sleep Apnea Other Respiratory History: uses a CPAP Gastrointestinal History: Reports: GERD Other Genitourinary History: bladder surgery 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: Musculoskeletal History: Reports: Fracture, Neck Pain, Chronic Other Musculoskeletal History: hx of fx ankle Neurological History: Reports: None, Other (See Below) (h/o migraines) Psychiatric History: Reports: Anxiety, Depression Endocrine/Metabolic History: Reports: Obesity/BMI 30+ Hematologic History: Reports: Anemia Immunologic History: Reports: None Oncologic (Cancer) History: Reports: None Dermatologic History: Reports: None - Infectious Disease History Infectious Disease History: Reports: Chicken Pox, Mumps - Past Surgical History Head Surgeries/Procedures: Reports: None HEENT Surgical History: Reports: Oral Surgery Other HEENT Surgeries/Procedures: has 5 lower dental implants GI Surgical History: Reports: Cholecystectomy, Colonoscopy, EGD Female Surgical History: Reports: Breast Biopsy, Hysterectomy, Oophorectomy, Other (See Below) Other Female Surgeries/Procedures: hx of bladder suspension Social & Family History - Family History Family Medical History: Noncontributory - Tobacco Use Smoking Status *Q: Never Smoker - Caffeine Use Caffeine Use: Reports: Coffee, Tea - Recreational Drug Use Recreational Drug Use: Yes Drug Use in Last 12 Months: Yes Recreational Drug Type: Reports: Marijuana/Hashish Recreational Drug Use Frequency: Not Used In Over 2 Months - Living Situation & Occupation Living situation: Reports: , with Spouse Occupation: Retired ED ROS GENERAL - Review of Systems Review Of Systems: ROS reveals no pertinent complaints other than HPI. ED EXAM, GENERAL - Physical Exam Exam: See Below (see dictation) Course - Vital Signs Last Recorded V/S: Last Vital Signs Temp 36.6 C 07/20/19 21:34 Pulse 76 07/20/19 22:13 Resp 16 07/20/19 22:13 BP 143/81 H 07/20/19 22:13 Pulse Ox 95 07/20/19 22:13 - Orders/Labs/Meds Orders: Active Orders 24 hr Category Date Time Status Patient Status [ADT] Stat ADT 07/20/19 22:33 Ordered Cardiac Monitoring [RC] . DIRECTED Care 07/20/19 21:39 Active EKG Documentation Completion [RC] STAT Care 07/20/19 21:39 Active Oxygen Therapy, ED [RC] ASDIRECTED Care 07/20/19 21:39 Active Pulse Oximetry [RC] ASDIRECTED Care 07/20/19 21:39 Active Sodium Chloride 0.9% [Saline Flush] Med 07/20/19 21:39 Active 10 ml FLUSH ASDIRECTED PRN Sodium Chloride 0.9% [Saline Flush] Med 07/20/19 21:39 Active 2.5 ml FLUSH ASDIRECTED PRN Saline Lock Insert [OM.PC] Stat Oth 07/20/19 21:39 Ordered Medication Orders Sodium Chloride (Saline Flush) 10 ml FLUSH ASDIRECTED PRN PRN Reason: Keep Vein Open Sodium Chloride (Saline Flush) 2.5 ml FLUSH ASDIRECTED PRN PRN Reason: Keep Vein Open Labs: Laboratory Tests 07/20/19 07/20/19 07/20/19 Range/Units 21:42 21:42 21:42 WBC 8.48 (4.0-11.0) K/uL RBC 4.60 (4.30-5.90) M/uL Hgb 11.2 L (12.0-16.0) g/dL Hct 36.1 (36.0-46.0) % MCV 78.5 L (80.0-98.0) fL MCH 24.3 L (27.0-32.0) pg MCHC 31.0 (31.0-37.0) g/dL RDW Std Deviation 49.0 (28.0-62.0) fl RDW Coeff of Uday 17 H (11.0-15.0) % Plt Count 302 (150-400) K/uL MPV 9.80 (7.40-12.00) fL Neut % (Auto) 53.5 (48.0-80.0) % Lymph % (Auto) 34.4 (16.0-40.0) % Wilcox % (Auto) 8.4 (0.0-15.0) % Eos % (Auto) 3.2 (0.0-7.0) % Baso % (Auto) 0.5 (0.0-1.5) % Neut # (Auto) 4.5 (1.4-5.7) K/uL Lymph # (Auto) 2.9 H (0.6-2.4) K/uL Wilcox # (Auto) 0.7 (0.0-0.8) K/uL Eos # (Auto) 0.3 (0.0-0.7) K/uL Baso # (Auto) 0.0 (0.0-0.1) K/uL Nucleated RBC % 0.0 /100WBC Nucleated RBCs # 0 K/uL INR 0.97 Sodium 143 (136-145) mmol/L Potassium 3.5 (3.5-5.1) mmol/L Chloride 105 (98-107) mmol/L Carbon Dioxide 28.7 (21.0-32.0) mmol/L BUN 18 (7.0-18.0) mg/dL Creatinine 0.9 (0.6-1.0) mg/dL Est Cr Clr Drug Dosing 55.68 mL/min Estimated GFR (MDRD) > 60.0 ml/min Glucose 114 H (74-106) mg/dL Calcium 9.5 (8.5-10.1) mg/dL Total Bilirubin 0.4 (0.2-1.0) mg/dL AST 43 H (15-37) IU/L ALT 82 H (14-63) IU/L Alkaline Phosphatase 124 H (46-116) U/L Troponin I < 0.050 (0.000-0.056) ng/mL Total Protein 8.0 (6.4-8.2) g/dL Albumin 3.9 (3.4-5.0) g/dL Globulin 4.1 H (2.6-4.0) g/dL Albumin/Globulin Ratio 1.0 (0.9-1.6) Amylase 40 (25-115) U/L Lipase 119 (73-393) U/L Meds: Medications Generic Name Dose Route Start Last Admin Trade Name Freq PRN Reason Stop Dose Admin Sodium Chloride 10 ml 07/20/19 21:39 Saline Flush FLUSH ASDIRECTED PRN Keep Vein Open Sodium Chloride 2.5 ml 07/20/19 21:39 Saline Flush FLUSH ASDIRECTED PRN Keep Vein Open Discontinued Medications Generic Name Dose Route Start Last Admin Trade Name Freq PRN Reason Stop Dose Admin Aspirin 324 mg 07/20/19 21:46 07/20/19 22:05 Aspirin PO 07/20/19 21:47 324 mg ONETIME ONE Administration Sodium Chloride Confirm 07/20/19 21:57 07/20/19 22:08 Normal Saline Administered 07/20/19 21:58 20 mls/hr Dose Administration 20 mls @ as directed .ROUTE .STK-MED ONE Nitroglycerin 0.5 gm 07/20/19 21:46 07/20/19 22:06 Nitro-Bid 2% TOP 07/20/19 21:47 0.5 gm ONETIME ONE Administration Pantoprazole Sodium 80 mg 07/20/19 21:51 07/20/19 22:08 Protonix Iv IVPUSH 07/20/19 21:52 80 mg .BOLUS ONE Administration Departure - Departure Time of Disposition: 22:35 Disposition: Refer to Observation Condition: Good Clinical Impression: Chest pain Qualifiers: Chest pain type: unspecified Qualified Code(s): R07.9 - Chest pain, unspecified - Discharge Information Referrals: Ortega Mcmillan MD [Primary Care Provider] - Forms: ED Department Discharge - My Orders Last 24 Hours: My Active Orders 07/20/19 21:39 Cardiac Monitoring [RC] . DIRECTED EKG Documentation Completion [RC] STAT Oxygen Therapy, ED [RC] ASDIRECTED Pulse Oximetry [RC] ASDIRECTED Sodium Chloride 0.9% [Saline Flush] 10 ml FLUSH ASDIRECTED PRN Sodium Chloride 0.9% [Saline Flush] 2.5 ml FLUSH ASDIRECTED PRN Saline Lock Insert [OM.PC] Stat 07/20/19 22:33 Patient Status [ADT] Stat - Assessment/Plan Last 24 Hours: My Active Orders 07/20/19 21:39 Cardiac Monitoring [RC] . DIRECTED EKG Documentation Completion [RC] STAT Oxygen Therapy, ED [RC] ASDIRECTED Pulse Oximetry [RC] ASDIRECTED Sodium Chloride 0.9% [Saline Flush] 10 ml FLUSH ASDIRECTED PRN Sodium Chloride 0.9% [Saline Flush] 2.5 ml FLUSH ASDIRECTED PRN Saline Lock Insert [OM.PC] Stat 07/20/19 22:33 Patient Status [ADT] Stat
[2019-07-20] MEDS ORDERED: Sodium Chloride 0.9% 20 ML ONE (21:57)
--- NOTE | 2019-07-20 22:06 | CR ---
INDICATION: Chest pain TECHNIQUE: Chest radiograph 1 view COMPARISON: None FINDINGS: Moderate degradation of image quality noted due to body habitus. Mediastinum: The mediastinum is normal in appearance. The heart silhouette is normal in size and morphology. Lung: Both lungs are unremarkable in appearance. No sign of pleural effusion seen. No pneumothorax is identified. Bone and Soft tissue: Unremarkable for age. IMPRESSION: 1. No acute cardiopulmonary disease is seen. Dictated by: Agustin Carlos MD @ 07/20/2019 22:04:46 (Electronically Signed)
[2019-07-20 22:14] LABS: BLOOD UREA NITROGEN,BUN 18 mg/dL (7.0-18.0); CARBON DIOXIDE,CO2 28.7 mmol/L (21.0-32.0); CHLORIDE,CL 105 mmol/L (98-107); GLUCOSE RANDOM 114 mg/dL (74-106); LIPASE 119 U/L (73-393); POTASSIUM,K 3.5 mmol/L (3.5-5.1); SODIUM,NA 143 mmol/L (136-145)
[2019-07-20] MEDS ORDERED: Ondansetron 4 MG/2 ML SDV IVPUSH PRN (23:54)
[2019-07-20] MEDS ORDERED: Simvastatin 40 MG Tab PO SCH (23:58)
--- NOTE | 2019-07-21 08:02 | PCM.HP.2 ---
H&P History of Present Illness - General Date of Service: 07/21/19 Admit Problem/Dx: Admission Diagnosis/Problem Admission Diagnosis/Problem Chest pain Source of Information: Patient History Limitations: Reports: No Limitations - History of Present Illness Initial Comments - Free Text/Narative: This 59 year old female with pmh of HTN, dyslipidemia and GERD presented to the ED last evening with complaints of squeezing chest pain, that started around 6: 30 pm last evening. She reports she felt a little nauseated and had a small emesis in her mouth when the pain started. Denies shortness of breath or diaphoresis. She reports the pain radiated up both sides of her neck. She reports she ran out of her Nexium, she did not refill this and ate normally. She reports she was having quite a bit of GERD symptoms over the weekend and was taking Tums to help this. She reports 10 years ago she had abnormal stress test and had cardiac cath that was completely normal. She has been complaint with Metoprolol and statin. She reports she overall has not felt well the last few months, recently had URI, which has improved. She denies fevers or chills. No dyspnea. No abdominal pain, no black or bloody BMs. No urinary concerns. No focal neurologic deficits. She denies tobacco use, rare alcohol use and no recreational drug use. In the ED CBC WNL, Glucose 114, AST 43, ALT 82, and alk phos 124, Troponin negative, CXR negative and EKG SR with no ST elevation. She was treated with Nitro paste, Protonix and ASA. She was admitted for chest pain rule out ACS PCP. Dr Mcmillan. - Related Data Allergies/Adverse Reactions: Allergies Allergy/AdvReac Type Severity Reaction Status Date / Time No Known Allergies Allergy Verified 07/21/19 05:52 Home Medications: Home Meds Esomeprazole Magnesium [Nexium] 40 mg PO DAILY 04/20/16 [History] Venlafaxine HCl [Venlafaxine ER] 150 mg PO DAILY 04/20/16 [History] Simvastatin [Zocor] 40 mg PO BEDTIME 04/10/19 [History] Cyanocobalamin (Vitamin B12) [Vitamin B12] 500 mcg PO DAILY #30 tablet 04/16/19 [Rx] Folic Acid 1 mg PO DAILY #30 tablet 04/16/19 [Rx] Iron Polysaccharides Complex [Ferrex 150] 150 mg PO DAILY #30 cap 04/16/19 [Rx] Metoprolol Succinate 25 mg PO BEDTIME 05/07/19 [History] Estrogens, Conjugated [Premarin Vaginal Crm] 0.625 mg VAG ASDIRECTED 07/20/19 [ History] metFORMIN HCl [Metformin HCl] 500 mg PO BID #60 tablet 07/21/19 [Rx] Past Medical History HEENT History: Reports: Impaired Vision, Other (See Below) Other HEENT History: wears glasses, hx of osteomyelitis in jaw Cardiovascular History: Reports: High Cholesterol, Hypertension Respiratory History: Reports: Sleep Apnea Other Respiratory History: has a CPAP but not used in past few weeks. 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: Musculoskeletal History: Reports: Fracture, Neck Pain, Chronic Other Musculoskeletal History: hx of fx ankle Neurological History: Reports: None, Other (See Below) Psychiatric History: Reports: Anxiety, Depression Endocrine/Metabolic History: Reports: Obesity/BMI 30+ Hematologic History: Reports: Anemia Immunologic History: Reports: None Oncologic (Cancer) History: Reports: None Dermatologic History: Reports: None - Infectious Disease History Infectious Disease History: Reports: Chicken Pox, Mumps - Past Surgical History Head Surgeries/Procedures: Reports: None HEENT Surgical History: Reports: Oral Surgery Other HEENT Surgeries/Procedures: has 5 lower dental implants Cardiovascular Surgical History: Reports: Other (See Below) Other Cardiovascular Surgeries/Procedures: heart cath 2010 after abnormal stress test, no blockages. GI Surgical History: Reports: Cholecystectomy, Colonoscopy, EGD Female Surgical History: Reports: Breast Biopsy, Hysterectomy, Oophorectomy, Other (See Below) Other Female Surgeries/Procedures: hx of bladder suspension Social & Family History - Family History Family Medical History: Noncontributory Cardiac: Reports: High Cholesterol, Hypertension : Reports: Renal Disease/Insufficiency Neurological: Reports: CVA Oncologic: Reports: Breast, Ovarian - Tobacco Use Smoking Status *Q: Never Smoker Second Hand Smoke Exposure: No - Caffeine Use Caffeine Use: Reports: Coffee, Tea - Recreational Drug Use Recreational Drug Use: No Drug Use in Last 12 Months: Yes Recreational Drug Type: Reports: Marijuana/Hashish Recreational Drug Use Frequency: Not Used In Over 2 Months - Living Situation & Occupation Living situation: Reports: , with Spouse Occupation: Retired H&P Review of Systems - Review of Systems: Review Of Systems: See Below General: Reports: No Symptoms, Chills. Denies: Fever HEENT: Reports: No Symptoms Pulmonary: Reports: No Symptoms. Denies: Shortness of Breath Cardiovascular: Reports: No Symptoms. Denies: Chest Pain Gastrointestinal: Reports: No Symptoms. Denies: Nausea, Vomiting Skin: Reports: No Symptoms Psychiatric: Reports: No Symptoms Immunologic: Reports: No Symptoms Exam - Exam Exam: See Below - Vital Signs Vital Signs: Last Vital Signs Temp 97.9 F 07/21/19 07:54 Pulse 67 07/21/19 07:54 Resp 16 07/21/19 07:54 BP 128/70 07/21/19 07:54 Pulse Ox 93 L 07/21/19 07:54 Weight: 85.23 kg - Exam General: Alert, Oriented HEENT: Conjunctiva Clear, Mucosa Moist & [place] Neck: Supple, Trachea Midline Lungs: Clear to Auscultation, Normal Respiratory Effort Cardiovascular: Regular Rate, Regular Rhythm GI/Abdominal Exam: Normal Bowel Sounds, Soft, Non-Tender Skin: Warm, Dry Psychiatric: Alert, Normal Affect, Normal Mood - Patient Data Lab Results Last 24 hrs: Laboratory Results - last 24 hr 07/20/19 07/20/19 07/20/19 Range/Units 21:42 21:42 21:42 WBC 8.48 (4.0-11.0) K/uL RBC 4.60 (4.30-5.90) M/uL Hgb 11.2 L (12.0-16.0) g/dL Hct 36.1 (36.0-46.0) % MCV 78.5 L (80.0-98.0) fL MCH 24.3 L (27.0-32.0) pg MCHC 31.0 (31.0-37.0) g/dL RDW Std Deviation 49.0 (28.0-62.0) fl RDW Coeff of Uday 17 H (11.0-15.0) % Plt Count 302 (150-400) K/uL MPV 9.80 (7.40-12.00) fL Neut % (Auto) 53.5 (48.0-80.0) % Lymph % (Auto) 34.4 (16.0-40.0) % Alexander % (Auto) 8.4 (0.0-15.0) % Eos % (Auto) 3.2 (0.0-7.0) % Baso % (Auto) 0.5 (0.0-1.5) % Neut # (Auto) 4.5 (1.4-5.7) K/uL Lymph # (Auto) 2.9 H (0.6-2.4) K/uL Alexander # (Auto) 0.7 (0.0-0.8) K/uL Eos # (Auto) 0.3 (0.0-0.7) K/uL Baso # (Auto) 0.0 (0.0-0.1) K/uL Nucleated RBC % 0.0 /100WBC Nucleated RBCs # 0 K/uL INR 0.97 Sodium 143 (136-145) mmol/L Potassium 3.5 (3.5-5.1) mmol/L Chloride 105 (98-107) mmol/L Carbon Dioxide 28.7 (21.0-32.0) mmol/L BUN 18 (7.0-18.0) mg/dL Creatinine 0.9 (0.6-1.0) mg/dL Est Cr Clr Drug Dosing 55.68 mL/min Estimated GFR (MDRD) > 60.0 ml/min Glucose 114 H (74-106) mg/dL Calcium 9.5 (8.5-10.1) mg/dL Total Bilirubin 0.4 (0.2-1.0) mg/dL AST 43 H (15-37) IU/L ALT 82 H (14-63) IU/L Alkaline Phosphatase 124 H (46-116) U/L Troponin I < 0.050 (0.000-0.056) ng/mL Total Protein 8.0 (6.4-8.2) g/dL Albumin 3.9 (3.4-5.0) g/dL Globulin 4.1 H (2.6-4.0) g/dL Albumin/Globulin Ratio 1.0 (0.9-1.6) Amylase 40 (25-115) U/L Lipase 119 (73-393) U/L 07/21/19 Range/Units 03:33 WBC (4.0-11.0) K/uL RBC (4.30-5.90) M/uL Hgb (12.0-16.0) g/dL Hct (36.0-46.0) % MCV (80.0-98.0) fL MCH (27.0-32.0) pg MCHC (31.0-37.0) g/dL RDW Std Deviation (28.0-62.0) fl RDW Coeff of Uday (11.0-15.0) % Plt Count (150-400) K/uL MPV (7.40-12.00) fL Neut % (Auto) (48.0-80.0) % Lymph % (Auto) (16.0-40.0) % Alexander % (Auto) (0.0-15.0) % Eos % (Auto) (0.0-7.0) % Baso % (Auto) (0.0-1.5) % Neut # (Auto) (1.4-5.7) K/uL Lymph # (Auto) (0.6-2.4) K/uL Alexander # (Auto) (0.0-0.8) K/uL Eos # (Auto) (0.0-0.7) K/uL Baso # (Auto) (0.0-0.1) K/uL Nucleated RBC % /100WBC Nucleated RBCs # K/uL INR Sodium (136-145) mmol/L Potassium (3.5-5.1) mmol/L Chloride (98-107) mmol/L Carbon Dioxide (21.0-32.0) mmol/L BUN (7.0-18.0) mg/dL Creatinine (0.6-1.0) mg/dL Est Cr Clr Drug Dosing mL/min Estimated GFR (MDRD) ml/min Glucose (74-106) mg/dL Calcium (8.5-10.1) mg/dL Total Bilirubin (0.2-1.0) mg/dL AST (15-37) IU/L ALT (14-63) IU/L Alkaline Phosphatase (46-116) U/L Troponin I < 0.050 (0.000-0.056) ng/mL Total Protein (6.4-8.2) g/dL Albumin (3.4-5.0) g/dL Globulin (2.6-4.0) g/dL Albumin/Globulin Ratio (0.9-1.6) Amylase (25-115) U/L Lipase (73-393) U/L Result Diagrams: 07/20/19 21:42 07/20/19 21:42 - Problem List (1) Chest pain SNOMED Code(s): 90145207 ICD Code: R07.9 - CHEST PAIN, UNSPECIFIED Status: Acute Qualifiers: Chest pain type: unspecified Qualified Code(s): R07.9 - Chest pain, unspecified (2) New onset type 2 diabetes mellitus SNOMED Code(s): 74160145 ICD Code: E11.9 - TYPE 2 DIABETES MELLITUS WITHOUT COMPLICATIONS Status: Acute (3) Dyslipidemia SNOMED Code(s): 322043049 ICD Code: E78.5 - HYPERLIPIDEMIA, UNSPECIFIED Status: Chronic (4) GERD (gastroesophageal reflux disease) SNOMED Code(s): 253881372 ICD Code: K21.9 - GASTRO-ESOPHAGEAL REFLUX DISEASE WITHOUT ESOPHAGITIS Status: Chronic Qualifiers: Esophagitis presence: esophagitis presence not specified Qualified Code(s) : K21.9 - Gastro-esophageal reflux disease without esophagitis (5) HTN (hypertension) SNOMED Code(s): 55436206 ICD Code: I10 - ESSENTIAL (PRIMARY) HYPERTENSION Status: Chronic Qualifiers: Hypertension type: essential hypertension Qualified Code(s): I10 - Essential (primary) hypertension Problem List Initiated/Reviewed/Updated: Yes Orders Last 24hrs: Active Orders 24 hr Category Date Time Status Patient Status [ADT] Stat ADT 07/20/19 22:33 Active Cardiac Monitoring [RC] . DIRECTED Care 07/20/19 21:39 Active Influenza Vaccine Charge [RC] .DISCHARGE Care 07/21/19 00:59 Active Oxygen Therapy, ED [RC] ASDIRECTED Care 07/20/19 21:39 Active Pulse Oximetry [RC] ASDIRECTED Care 07/20/19 21:39 Active Telemetry Monitoring [Cardiac Monitoring] [RC] Q8H Care 07/20/19 22:47 Active Regular Diet [DIET] Diet 07/21/19 Breakfast Active TROPONIN I [CHEM] Routine Lab 07/21/19 09:30 Ordered Esomeprazole Magnesium [Nexium] Med 07/21/19 09:00 Ordered 40 mg PO DAILY FLU Vacc [id number](6MOS+)/PF [Fluzone Quad Med 07/21/19 10:00 Once Syringe] 60 mcg IM .ONCE ONE Metoprolol Succinate [Toprol XL] Med 07/20/19 21:00 Active 25 mg PO BEDTIME Ondansetron [Zofran] Med 07/20/19 23:54 Active 4 mg IVPUSH Q4H PRN Simvastatin [Zocor] Med 07/20/19 23:58 Active 40 mg PO BEDTIME Sodium Chloride 0.9% [Saline Flush] Med 07/20/19 21:39 Active 10 ml FLUSH ASDIRECTED PRN Sodium Chloride 0.9% [Saline Flush] Med 07/20/19 21:39 Active 2.5 ml FLUSH ASDIRECTED PRN Sodium Chloride 0.9% [Saline Flush] Med 07/20/19 23:55 Active 2.5 ml FLUSH ASDIRECTED PRN Venlafaxine [Effexor XR] Med 07/21/19 09:00 Ordered 150 mg PO DAILY Saline Lock Insert [OM.PC] Stat Oth 07/20/19 21:39 Ordered Medication Orders Influenza Virus Vaccine (Fluzone Quad Syringe) 60 mcg IM .ONCE ONE Stop: 07/21/19 10:01 Metoprolol Succinate (Toprol Xl) 25 mg PO BEDTIME [facility] Last Admin: 07/21/19 00:48 Dose: 25 mg Ondansetron HCl (Zofran) 4 mg IVPUSH Q4H PRN PRN Reason: Nausea/Vomiting Simvastatin (Zocor) 40 mg PO BEDTIME [facility] Last Admin: 07/21/19 00:48 Dose: 40 mg Sodium Chloride (Saline Flush) 10 ml FLUSH ASDIRECTED PRN PRN Reason: Keep Vein Open Sodium Chloride (Saline Flush) 2.5 ml FLUSH ASDIRECTED PRN PRN Reason: Keep Vein Open Sodium Chloride (Saline Flush) 2.5 ml FLUSH ASDIRECTED PRN PRN Reason: IV Use Assessment/Plan Comment:: Discharge plan: Admitting diagnoses: Chest pain rule out ACS Discharge Diagnoses: Chest pain- resolved, likely GERD New onset Dm type 2, A1c 7.2 Other PMH HTN Dyslipidemia GERD Melody was monitored overnight, troponins negative. EKG remained SR with no ST elevation. Chest pain did not return. She reports she took Nexium before coming as well as receiving protonix in the ED. Today lipid panel was obtained, LDL 82 , HDL 53, total cholesterol 166 and triglycerides 155. A1c obtained which returned elevated at 7.2 She was counseled on new diagnosis of DM Type 2, she will visit with Dm educator prior to discharge to help with diet and new medication Metformin 500 mg BID. She is to follow up with PCP regarding further evaluation for this and monitoring. She will be set up for outpatient stress test, though chest pain may be related to GERD like symptoms. She was also noted to have slightly elevated LFTs, INR normal. RUQ US obtained and hepatitis panel pending upon discharge. She is to follow with PCP regarding this as well. She will be discharged home today. Continue all home medications. She was counseled on ADA heart healthy diet. She is to return to ED or clinic if concerns should arise. - Mortality Measure Prognosis:: Good
[2019-07-21 08:36] LABS: HEMOGLOBIN A1C 7.2 % (4.5-6.2)
[2019-07-21] MEDS ORDERED: Venlafaxine 75 MG Cap.ER PO SCH (09:00)
[2019-07-21] MEDS ORDERED: Omeprazole 20 MG Cap.CR PO SCH (09:00)
[2019-07-21] MEDS ORDERED: FLU Vacc QS2019-20(6MOS+)/PF 60 MCG/0.5 ML SYRINGE IM ONE (10:00)
[2019-07-21 13:19] VITALS: BP 132/68; PULSE 76
--- NOTE | 2019-07-21 14:59 | US ---
EXAM DATE: 07/20/19 PATIENT'S AGE: 59 Limited abdominal ultrasound: Multiple real-time images of the upper right abdomen were obtained. Comparison: No previous abdominal imaging. Liver is echogenic most likely due to fatty infiltration. Previous cholecystectomy is noted. Common bile duct not well seen but no indirect evidence of biliary duct dilatation is seen. Right kidney shows no hydronephrosis or mass. Right kidney has a length of 10.4 cm. Visualised pancreas appears within normal limits. Impression: 1. Echogenic liver most likely representing fatty infiltration. 2. Prior cholecystectomy. 3. No additional abnormality is appreciated on right upper quadrant abdominal ultrasound study. Diagnostic code #3 Report Signed by Proxy. JOAN
== END 2019-07-21 16:10 | disposition home or self-care (01) ==
LOC: MW.ED 21:34 → MW.MS 22:33
PROVIDERS: ADMIT Internal Medicine; ATTEND Internal Medicine
DX: R07.89 Other chest pain (principal); I10 Essential (primary) hypertension; E11.9 Type 2 diabetes mellitus without complications; E78.00 Pure hypercholesterolemia, unspecified; K21.9 Gastro-esophageal reflux disease without esophagitis; G47.30 Sleep apnea, unspecified; Z23 Encounter for immunization; Z79.899 Other long term (current) drug therapy
CPT/HCPCS: 36415; 71045; 76705; 80053; 80061; 80074; 82150; 82962; 83036; 83690; 84484; 85025; 85610; 90471; 90686; 93005; 96374; 99285; A9270; C9113; 99284; G0008; G0378

== ENCOUNTER 2021-09-10 12:59 | Emergency (ER) | payer BC ==
[2021-09-10] MEDS ORDERED: Clindamycin Phosphate in D5W 600 MG in Premix Bag 1 BAG IV ONE ×2 (15:07)
[2021-09-10] MEDS ORDERED: Dexamethasone 10 MG/ML SDV IVPUSH ONE (15:07)
--- NOTE | 2021-09-10 15:37 | EDM.PDOC ---
ED HPI GENERAL MEDICAL PROBLEM - General Chief Complaint: General Stated Complaint: TONSILS Time Seen by Provider: 09/10/21 14:48 Source of Information: Reports: Patient History Limitations: Reports: No Limitations - History of Present Illness INITIAL COMMENTS - FREE TEXT/NARRATIVE: HISTORY AND PHYSICAL: History of present illness: Patient is a 61-year-old female who presents emergency room today with concern of swollen tonsils, generalized body aches, and headache over the past 2 days. Patient states that her right tonsil is much more painful than her left and noticed that side was more swollen. Patient states that she has been able to swallow but she does have pain with doing so. Patient states she has not taken anything for her symptoms and denies any other associated symptoms. Patient denies fever, chills, chest pain, shortness of breath, or cough. Denies neck stiff ness, change in vision, syncope, or near syncope. Denies nausea, vomiting, abdominal pain, diarrhea, constipation, or dysuria. Has not noted any blood in urine or stool. Patient has been eating and drinking appropriately. Review of systems: As per history of present illness and below otherwise all systems reviewed and negative. Past medical history: As per history of present illness and as reviewed below otherwise noncontributory. Surgical history: As per history of present illness and as reviewed below otherwise noncontributory. Social history: See social history for further information Family history: As per history of present illness and as reviewed below otherwise noncon tributory. Physical exam: General: Patient is alert, oriented, and in no acute distress. Patient sitting comfortably on exam table. Vitals stable and reviewed by me. HEENT: Tonsils are enlarged, right is significantly more enlarged than the left with deviation of the uvula to the left. There is white exudate on the left tonsil. Otherwise, atraumatic, normocephalic, pupils equal and reactive roberta aterally, negative for conjunctival pallor or scleral icterus, mucous membranes moist, neck supple, nontender, trachea midline. No drooling or trismus noted. No meningeal signs. No hot potato voice noted. Lungs: Clear to auscultation, breath sounds equal bilaterally, chest nontender. Heart: S1S2, regular rate and rhythm without overt murmur Abdomen: Soft, nondistended, nontender. Negative for masses or hepatosplenomegaly. Negative for costovertebral tenderness. Pelvis: Stable nontender. Genitourinary: Deferred. Rectal: Deferred. Skin: Intact, warm, dry. No lesions or rashes noted. Extremities: Atraumatic, negative for cords or calf pain. Neurovascular unremarkable. Neuro: Awake, alert, oriented. Cranial nerves II through XII unremarkable. Cerebellum unremarkable. Motor and sensory unremarkable throughout. Exam nonfocal. Medical Decision Making: Patient is a 61-year-old female who presents emergency room today with concern of swollen tonsils, body aches, and headache x2 days. Upon arrival to the ED, patient is vitally stable and well-appearing on exam. However, examination of her throat does show that her tonsils are significantly enlarged, the right more than left and the uvula is deviated to the left. There is white exudate on the left tonsil only. Because of this, will obtain IV access, provide dose of Decadron and clindamycin here while awaiting diagnostic completion. Concern of abscess. Does not have any drooling, hot potato voice, or trismus on exam and is able to bedside swallow on exam. CBC does show mild leukocytosis with white blood cell count of 15.45. Patient does have anemia with hemoglobin of 10.9, hematocrit of 35.2. This is stable from past lab work. CMP mild derangements are unremarkable. Group A strep is positive. Soft tissue neck ct w cont shows bilateral acute palatine tonsillitis. Subcentimeter ([id number]) right tonsillar abscess. Mild transverse narrowing of the oropharyngeal airway. Multiple reactive cervical lymph nodes. At this time, patient has been observed in the emergency room for 2 hours following fluids, dexamethasone, and IV antibiotics. She has clinical improvement of her symptoms at this time and her abscess is small. She is able to tolerate PO intake. Disposition discussed with Dr. No who is also in agreeance with plan. Given area of abscess is small, I&D/needle aspiration difficult due to small size, and trial of antibiotic alone recommended with close follow up with ENT discussed with patient. She is agreeable to plan of care. Voices understanding and is agreeable to plan of care. Denies any further q uestions or concerns at this time. Strict return precautions discussed with patient including shortness of breath, worsening throat/neck pain, enlarging mass, bleeding, or neck stiffness. All signs and symptoms that would prompt return to the ED thoroughly discussed with patient. Discussed importance of follow-up with the ear nose and throat provider. Patient was referred to Dr. Beltre ENT. Diagnostics: CBC, CMP, Strep, COVID/Flu, Soft tissue neck CT w cont Therapeutics: Decadron, Clindamycin, Rocephin Prescription: Clindamycin Impression: Peritonsillar abscess, small, right Strep pharyngitis Plan: 1. Use cough drops and/or other over the counter medications as needed for throat discomfort as discussed. Drink small but frequent sips of fluid to prevent dehydration. Take medication as prescribed. 2. Alternate Ibuprofen and Tylenol as directed for pain and discomfort. 3. Follow up with the Ear Nose and Throat provider as discussed. Information has been provided above for you to call and establish an appointment time. 4. Return to the ED as needed and as discussed. Definitive disposition and diagnosis as appropriate pending reevaluation and review of above. Head Pain Score (Numeric/FACES): 9 - Related Data Allergies Allergy/AdvReac Type Severity Reaction Status Date / Time No Known Allergies Allergy Verified 09/10/21 14:23 Home Meds: Home Meds Esomeprazole Magnesium [Nexium] 40 mg PO DAILY 04/20/16 [History] Venlafaxine HCl [Venlafaxine ER] 150 mg PO DAILY 04/20/16 [History] Simvastatin [Zocor] 40 mg PO BEDTIME 04/10/19 [History] Cyanocobalamin (Vitamin B12) [Vitamin B12] 500 mcg PO DAILY #30 tablet 04/16/19 [Rx] Folic Acid 1 mg PO DAILY #30 tablet 04/16/19 [Rx] Iron Polysaccharides Complex [Ferrex 150] 150 mg PO DAILY #30 cap 04/16/19 [Rx] Metoprolol Succinate 25 mg PO BEDTIME 05/07/19 [History] Estrogens, Conjugated [Premarin Vaginal Crm] 0.625 mg VAG ASDIRECTED 07/20/19 [History] metFORMIN HCl [Metformin HCl] 500 mg PO BID #60 tablet 07/21/19 [Rx] Past Medical History HEENT History: Reports: Impaired Vision, Other (See Below) Other HEENT History: wears glasses, hx of osteomyelitis in jaw Cardiovascular History: Reports: High Cholesterol, Hypertension Respiratory History: Reports: Sleep Apnea Other Respiratory History: has a CPAP but not used in past few weeks. Gastrointestinal History: Reports: GERD Genitourinary History: Reports: Other (See Below) Other Genitourinary History: bladder surgery [employer] History: Reports: Musculoskeletal History: Reports: Fracture, Neck Pain, Chronic Other Musculoskeletal History: hx of fx ankle Neurological History: Reports: None, Other (See Below) Psychiatric History: Reports: Anxiety, Depression Endocrine/Metabolic History: Reports: Obesity/BMI 30+ Hematologic History: Reports: Anemia Immunologic History: Reports: None Oncologic (Cancer) History: Reports: None Dermatologic History: Reports: None - Infectious Disease History Infectious Disease History: Reports: Chicken Pox, Mumps - Past Surgical History Head Surgeries/Procedures: Reports: None HEENT Surgical History: Reports: Naso-Sinus Surgery, Oral Surgery Other HEENT Surgeries/Procedures: has 5 lower dental implants. nasal septum perforation. implants in mouth removed Cardiovascular Surgical History: Reports: Other (See Below) Other Cardiovascular Surgeries/Procedures: heart cath 2010 after abnormal stress test, no blockages. GI Surgical History: Reports: Cholecystectomy, Colonoscopy, EGD Female Surgical History: Reports: Breast Biopsy, Hysterectomy, Oophorectomy, Other (See Below) Other Female Surgeries/Procedures: hx of bladder suspension Social & Family History - Family History Family Medical History: No Pertinent Family History Cardiac: Reports: High Cholesterol, Hypertension : Reports: Renal Disease/Insufficiency Neurological: Reports: CVA Oncologic: Reports: Breast, Ovarian - Caffeine Use Caffeine Use: Reports: Coffee, Tea - Living Situation & Occupation Living situation: Reports: , with Spouse Occupation: Retired ED ROS GENERAL - Review of Systems Review Of Systems: Comprehensive ROS is negative, except as noted in HPI. ED EXAM, GENERAL - Physical Exam Exam: See Below (see dictation) Course - Vital Signs Last Recorded V/S: Last Vital Signs Temp 99.5 F 09/10/21 14:24 Pulse 90 09/10/21 14:24 Resp 16 09/10/21 14:24 BP 129/67 09/10/21 14:24 Pulse Ox 99 09/10/21 14:24 - Orders/Labs/Meds Orders: Active Orders 24 hr Category Date Time Status Communication Order [RC] STAT Care 09/10/21 19:07 Active CULTURE BLOOD [BC] Stat Lab 09/10/21 16:07 Received CULTURE BLOOD [BC] Stat Lab 09/10/21 16:13 Received Blood Culture x2 Reflex Set [OM.PC] Stat Oth 09/10/21 16:01 Ordered Labs: Laboratory Tests 09/10/21 09/10/21 09/10/21 Range/Units 15:25 15:25 15:25 WBC 15.45 H (4.0-11.0) K/uL RBC 4.71 (4.30-5.90) M/uL Hgb 10.9 L (12.0-16.0) g/dL Hct 35.2 L (36.0-46.0) % MCV 74.7 L (80.0-98.0) fL MCH 23.1 L (27.0-32.0) pg MCHC 31.0 (31.0-37.0) g/dL RDW Std Deviation 46.5 (28.0-62.0) fl RDW Coeff of Uday 17 H (11.0-15.0) % Plt Count 301 (150-400) K/uL MPV 9.80 (7.40-12.00) fL Neut % (Auto) 78.8 (48.0-80.0) % Lymph % (Auto) 12.4 L (16.0-40.0) % [place] % (Auto) 8.5 (0.0-15.0) % Eos % (Auto) 0.1 (0.0-7.0) % Baso % (Auto) 0.2 (0.0-1.5) % Neut # (Auto) 12.2 H (1.4-5.7) K/uL Lymph # (Auto) 1.9 (0.6-2.4) K/uL [place] # (Auto) 1.3 H (0.0-0.8) K/uL Eos # (Auto) 0.0 (0.0-0.7) K/uL Baso # (Auto) 0.0 (0.0-0.1) K/uL Nucleated RBC % 0.0 /100WBC Nucleated RBCs # 0 K/uL Sodium (136-145) mmol/L Potassium (3.5-5.1) mmol/L Chloride (98-107) mmol/L Carbon Dioxide (21.0-32.0) mmol/L BUN (7.0-18.0) mg/dL Creatinine (0.6-1.0) mg/dL Est Cr Clr Drug Dosing mL/min Estimated GFR (MDRD) ml/min Glucose (74-106) mg/dL Lactic Acid (0.4-2.0) mmol/L Calcium (8.5-10.1) mg/dL Total Bilirubin (0.2-1.0) mg/dL AST (15-37) IU/L ALT (14-63) IU/L Alkaline Phosphatase (46-116) U/L Total Protein (6.4-8.2) g/dL Albumin (3.4-5.0) g/dL Globulin (2.6-4.0) g/dL Albumin/Globulin Ratio (0.9-1.6) Influenza Type A RNA NEGATIVE (NEGATIVE) Influenza Type B RNA NEGATIVE (NEGATIVE) SARS-CoV-2 RNA (LANRE) NEGATIVE (NEGATIVE) Group A Strep (PCR) DETECTED H (NOT DETECT) 09/10/21 09/10/21 Range/Units 15:25 16:13 WBC (4.0-11.0) K/uL RBC (4.30-5.90) M/uL Hgb (12.0-16.0) g/dL Hct (36.0-46.0) % MCV (80.0-98.0) fL MCH (27.0-32.0) pg MCHC (31.0-37.0) g/dL RDW Std Deviation (28.0-62.0) fl RDW Coeff of Uday (11.0-15.0) % Plt Count (150-400) K/uL MPV (7.40-12.00) fL Neut % (Auto) (48.0-80.0) % Lymph % (Auto) (16.0-40.0) % [place] % (Auto) (0.0-15.0) % Eos % (Auto) (0.0-7.0) % Baso % (Auto) (0.0-1.5) % Neut # (Auto) (1.4-5.7) K/uL Lymph # (Auto) (0.6-2.4) K/uL Dim[place] # (Auto) (0.0-0.8) K/uL Eos # (Auto) (0.0-0.7) K/uL Baso # (Auto) (0.0-0.1) K/uL Nucleated RBC % /100WBC Nucleated RBCs # K/uL Sodium 139 (136-145) mmol/L Potassium 3.9 (3.5-5.1) mmol/L Chloride 101 (98-107) mmol/L Carbon Dioxide 25.9 (21.0-32.0) mmol/L BUN 11 (7.0-18.0) mg/dL Creatinine 0.8 (0.6-1.0) mg/dL Est Cr Clr Drug Dosing 61.09 mL/min Estimated GFR (MDRD) > 60.0 ml/min Glucose 100 (74-106) mg/dL Lactic Acid 0.9 (0.4-2.0) mmol/L Calcium 9.1 (8.5-10.1) mg/dL Total Bilirubin 0.4 (0.2-1.0) mg/dL AST 23 (15-37) IU/L ALT 29 (14-63) IU/L Alkaline Phosphatase 121 H (46-116) U/L Total Protein 7.9 (6.4-8.2) g/dL Albumin 3.6 (3.4-5.0) g/dL Globulin 4.3 H (2.6-4.0) g/dL Albumin/Globulin Ratio 0.8 L (0.9-1.6) Influenza Type A RNA (NEGATIVE) Influenza Type B RNA (NEGATIVE) SARS-CoV-2 RNA (LANRE) (NEGATIVE) Group A Strep (PCR) (NOT DETECT) Meds: Medications Discontinued Medications Generic Name Dose Route Start Last Admin Trade Name Mildred PRN Reason Stop Dose Admin Dexamethasone 10 mg 09/10/21 15:07 09/10/21 16:05 Dexamethasone 10 Mg/Ml Sdv IVPUSH 09/10/21 15:08 10 mg ONETIME ONE Administration Clindamycin Phosphate 600 mg/ 50 mls @ 100 mls/hr 09/10/21 15:07 09/10/21 16:05 Premix IV 09/10/21 15:36 100 mls/hr ONETIME ONE Administration Ceftriaxone Sodium/Dextrose 2 50 mls @ 100 mls/hr 09/10/21 18:45 gm/ Premix IV 09/10/21 19:14 ONETIME ONE Iopamidol 100 ml 09/10/21 17:50 09/10/21 17:51 Iopamidol 755 Mg/Ml 500 Ml Multipack Bottle IVPUSH 09/10/21 17:51 100 ml ONETIME ONE Administration Departure - Departure Time of Disposition: 19:06 Disposition: Home, Self-Care 01 Clinical Impression: Peritonsillar abscess, Strep pharyngitis - Discharge Information Referrals: Ortega Mcmillan MD [Primary Care Provider] - Forms: ED Department Discharge Additional Instructions: The following information is given to patients seen in the emergency department who are being discharged to home. This information is to outline your options for follow-up care. We provide all patients seen in our emergency department with a follow-up referral. The need for follow-up, as well as the timing and circumstances, are variable depending upon the specifics of your emergency department visit. If you don't have a primary care physician on staff, we will provide you with a referral. We always advise you to contact your personal physician following an emergency department visit to inform them of the circumstance of the visit and for follow-up with them and/or the need for any referrals to a consulting specialist. The emergency department will also refer you to a specialist when appropriate. This referral assures that you have the opportunity for follow-up care with a specialist. All of these measure are taken in an effort to provide you with optimal care, which includes your follow-up. Under all circumstances we always encourage you to contact your private physician who remains a resource for coordinating your care. When calling for follow-up care, please make the office aware that this follow-up is from your recent emergency room visit. If for any reason you are refused follow-up, please contact the [facility] Emergency Department at and asked to speak to the emergency department charge nurse. [facility] Ears, Nose, and Throat Specialist, Dr. Paulie Beltre [phone] [facility] [id number] 1. Use cough drops and/or other over the counter medications as needed for throat discomfort as discussed. Drink small but frequent sips of fluid to prevent dehydration. Take medication as prescribed. 2. Alternate Ibuprofen and Tylenol as directed for pain and discomfort. 3. Follow up with the Ear Nose and Throat provider as discussed. Information has been provided above for you to call and establish an appointment time. 4. Return to the ED as needed and as discussed. Sepsis Event Note (ED) - Evaluation Sepsis Screening Result: No Definite Risk - Focused Exam Vital Signs: Vital Signs Temp Pulse Resp BP Pulse Ox 09/10/21 14:24 99.5 F 90 16 129/67 99 - My Orders Last 24 Hours: My Active Orders 09/10/21 16:01 Blood Culture x2 Reflex Set [OM.PC] Stat 09/10/21 16:07 CULTURE BLOOD [BC] Stat 09/10/21 16:13 CULTURE BLOOD [BC] Stat 09/10/21 19:07 Communication Order [RC] STAT - Assessment/Plan Last 24 Hours: My Active Orders 09/10/21 16:01 Blood Culture x2 Reflex Set [OM.PC] Stat 09/10/21 16:07 CULTURE BLOOD [BC] Stat 09/10/21 16:13 CULTURE BLOOD [BC] Stat 09/10/21 19:07 Communication Order [RC] STAT
[2021-09-10 16:32] LABS: BLOOD UREA NITROGEN,BUN 11 mg/dL (7.0-18.0); CARBON DIOXIDE,CO2 25.9 mmol/L (21.0-32.0); CHLORIDE,CL 101 mmol/L (98-107); CORONAVIRUS COVID-19 NAA NEGATIVE (NEGATIVE); GLUCOSE RANDOM 100 mg/dL (74-106); INFLUENZA A NAA NEGATIVE (NEGATIVE); INFLUENZA B NAA NEGATIVE (NEGATIVE); POTASSIUM,K 3.9 mmol/L (3.5-5.1); SODIUM,NA 139 mmol/L (136-145)
[2021-09-10] MEDS ORDERED: Iopamidol 755 MG/ML 500 ML Multipack Bottle IVPUSH ONE (17:50)
--- NOTE | 2021-09-10 18:35 | CT ---
INDICATION: UVULA DEVIATION TO THE LEFT - TONSILLITIS TECHNIQUE: CT of the neck with 100 ml Isovue 370 iodinated contrast agent. Coronal and sagittal reconstructions are included. COMPARISON: None FINDINGS: Edema and enhancement of the bilateral palatine tonsils consistent with acute tonsillitis, right greater than left. There is a 9 x 7 mm peripheral enhancing collection in the superior aspect of the right palatine tonsil consistent with tonsillar abscess (image 94 series 201). Mild transverse narrowing of the oropharyngeal airway. Multiple reactive cervical lymph nodes are seen bilaterally. The supraglottic, glottic and infraglottic larynx are normal. The parotid glands, submandibular and sublingual glands are normal in appearance. The thyroid gland is normal in appearance. Multiple left mandibular teeth are missing. The vascular structures opacify normally with contrast material. No lytic or blastic osseous lesions. There is cervical kyphosis. Shallow posterior disc osteophyte complex at C5-6 without significant spinal canal stenosis. Mild uncovertebral spurring without significant neural foraminal narrowing. Visualized paranasal sinuses and mastoid air cells are clear. The nasal septum is deviated to the left. Visualized orbital and intracranial contents are normal. Supraclavicular regions, mediastinum and soft tissues of the imaged chest wall are normal. Visualized portions of the upper lungs are clear. IMPRESSION: 1. Bilateral acute palatine tonsillitis. Subcentimeter right tonsillar abscess. Mild transverse narrowing of the oropharyngeal airway. 2. Multiple reactive cervical lymph nodes. Please note that all CT scans at this facility use dose modulation, iterative reconstruction, and/or weight-based dosing when appropriate to reduce radiation dose to as low as reasonably achievable. Dictated by Jhonny Scruggs MD @ 09/10/2021 6:35:23 PM (Electronically Signed)
[2021-09-10] MEDS ORDERED: cefTRIAXone 2 GM in Premix Bag 1 BAG IV ONE (18:45)
[2021-09-10 21:04] VITALS: BP 177/78; PULSE 77
== END 2021-09-10 21:05 | disposition home or self-care (01) ==
LOC: MW.ED 12:59
DX: J36 Peritonsillar abscess (principal); E78.00 Pure hypercholesterolemia, unspecified; I10 Essential (primary) hypertension; K21.9 Gastro-esophageal reflux disease without esophagitis; D64.9 Anemia, unspecified; E66.9 Obesity, unspecified; Z68.31 Body mass index [BMI] 31.0-31.9, adult; Z79.899 Other long term (current) drug therapy; Z20.822 Contact with and (suspected) exposure to COVID-19
CPT/HCPCS: 0240U; 36415; 70491; 80053; 83605; 85025; 87040; 87651; 96365; 96367; 96375; 99284; J0696; J1100; J3490; Q9967

== ENCOUNTER 2023-11-14 07:37 | Emergency (ER) | payer BC ==
[2023-11-14 07:54] LABS: BASOPHILS ABSOLUTE AUTO 0.06 K/uL (0.00-0.20); BASOPHILS PERCENT AUTO 0.7 % (0.0-1.0); EOSINOPHILS ABSOLUTE AUTO 0.29 K/uL (0.00-0.45); EOSINOPHILS PERCENT AUTO 3.3 % (0.0-6.0); HEMATOCRIT 41.5 % (37.0-47.0); HEMOGLOBIN 14.3 g/dL (12.0-16.0); IMMATURE GRAN ABSOLUTE AUTO 0.03 K/uL (0.00-0.05); IMMATURE GRAN PERCENT AUTO 0.3 % (0.0-0.4); LYMPHOCYTES PERCENT AUTO 21.6 % (24.0-44.0); MEAN CORPUSCULAR HEMOGLOBIN 29.2 pg (28.0-32.0); MEAN CORPUSCULAR HGB CONC 34.5 g/dL (32.0-36.0); MEAN CORPUSCULAR VOLUME 84.7 fL (83.0-99.0); MEAN PLATELET VOLUME 9.4 fL (9.4-12.3); MONOCYTES ABSOLUTE AUTO 0.77 K/uL (0.00-0.80); MONOCYTES PERCENT AUTO 8.8 % (0.0-8.0); NEUTROPHILS ABSOLUTE AUTO 5.73 K/uL (1.80-7.70); NEUTROPHILS PERCENT AUTO 65.3 % (41.0-71.0); PLATELET COUNT,PLT 287 K/uL (150-400); WHITE BLOOD CELL COUNT,WBC 8.78 K/uL (3.9-11.3)
[2023-11-14] MEDS: Aspirin 81 MG Tab.Chew PO ONE (08:02)
[2023-11-14] MEDS: Nitroglycerin 0.4 MG Tab.SL SL ONE (08:03)
[2023-11-14 08:07] LABS: INR 0.96 (0.86-1.11); PTT,PARTIAL THROMBOPLSTIN TIME 28.3 SEC (23.9-30.7)
[2023-11-14] MEDS: Alum Hydro/Mag Hydro/Simeth XS 15 ML, Lidocaine 2% 5 ML PO ONE (08:13)
[2023-11-14 08:16] LABS: ALANINE AMINOTRANSFERASE,ALT 17 IU/L (14-63); ALBUMIN 3.8 g/dL (3.4-5.0); ALKALINE PHOSPHATASE 116 U/L (46-116); ASPARTATE AMNIOTRANSFERASE,AST 12 IU/L (15-37); BILIRUBIN TOTAL 0.5 mg/dL (0.2-1.0); BLOOD UREA NITROGEN,BUN 18 mg/dL (7.0-18.0); CALCIUM 9.3 mg/dL (8.5-10.1); CARBON DIOXIDE,CO2 26.8 mmol/L (21.0-32.0); CHLORIDE,CL 106 mmol/L (98-107); CREATININE 0.9 mg/dL (0.6-1.0); EST CRCL DRUG DOSING (CG) 52.93 mL/min; ESTIMATED GFR 72 mL/min (>60); GLUCOSE RANDOM 106 mg/dL (74-106); POTASSIUM,K 4.2 mmol/L (3.5-5.1); PROTEIN TOTAL,TP 7.6 g/dL (6.4-8.2); SODIUM,NA 142 mmol/L (136-145)
[2023-11-14] MEDS: Morphine 4 MG/ML Syringe IVPUSH ONE (11:36)
[2023-11-14 12:08] VITALS: BP 135/83; PULSE 82
[2023-11-14] MEDS: LORazepam 2 MG/ML SDV IVPUSH ONE (12:45)
[2023-11-14] MEDS: Iopamidol 755 MG/ML 500 ML Multipack Bottle IVPUSH STA (15:42)
== END 2023-11-14 14:30 | disposition home or self-care (01) ==
LOC: MW.ED 07:37
DX: R07.9 Chest pain, unspecified (principal); I10 Essential (primary) hypertension; K21.9 Gastro-esophageal reflux disease without esophagitis; E66.9 Obesity, unspecified; Z90.710 Acquired absence of both cervix and uterus; Z68.28 Body mass index [BMI] 28.0-28.9, adult
CPT/HCPCS: 36415; 71045; 71275; 74174; 80053; 84484; 85025; 85379; 85610; 85730; 93005; 96374; 96375; 99285; A9270; J2060; J2270; Q9967; 93010; 99283

== ENCOUNTER 2024-10-13 08:35 | Day surgery (SDC) | payer BC ==
[~2024-10-13 08:35] MED LIST changes: -Metoprolol Succinate 25 MG Tab.ER PO SCH; +Sodium Chloride 0.9% 10 ML Syringe FLUSH PRN; +Sodium Chloride 0.9% 2.5 ML Syringe FLUSH PRN; +Sodium Chloride 0.9% 20 ML SDV IV PRN
[2024-10-13] MEDS: Lactated Ringers 1,000 ML IV SCH (09:52)
[2024-10-13] MEDS ORDERED: propofoL 500 MG/50 ML 50 ML ONE (10:30)
[2024-10-13] MEDS ORDERED: Lidocaine 2% 5 ML SDV ONE (10:30)
[2024-10-13 13:03] VITALS: BP 137/89; PULSE 68
== END 2024-10-13 12:27 | disposition home or self-care (01) ==
LOC: MW.SDS 08:35
PROVIDERS: ATTEND Surgery
DX: R13.10 Dysphagia, unspecified (principal); R19.4 Change in bowel habit; K21.9 Gastro-esophageal reflux disease without esophagitis; I10 Essential (primary) hypertension; E78.00 Pure hypercholesterolemia, unspecified; F41.9 Anxiety disorder, unspecified; F32.A Depression, unspecified; Z79.899 Other long term (current) drug therapy; Z80.0 Family history of malignant neoplasm of digestive organs
CPT/HCPCS: 43239; 45378; J2704; J7120; 00813; J3490

== ENCOUNTER 2025-02-25 08:31 | Emergency (ER) | payer BC ==
[2025-02-25 08:53] LABS: BASOPHILS ABSOLUTE AUTO 0.05 K/uL (0.00-0.20); BASOPHILS PERCENT AUTO 0.7 % (0.0-1.0); EOSINOPHILS ABSOLUTE AUTO 0.17 K/uL (0.00-0.45); EOSINOPHILS PERCENT AUTO 2.5 % (0.0-6.0); HEMATOCRIT 42.1 % (37.0-47.0); HEMOGLOBIN 14.2 g/dL (12.0-16.0); IMMATURE GRAN ABSOLUTE AUTO 0.01 K/uL (0.00-0.05); IMMATURE GRAN PERCENT AUTO 0.1 % (0.0-0.4); LYMPHOCYTES ABSOLUTE AUTO 1.93 K/uL (1.00-4.80); LYMPHOCYTES PERCENT AUTO 28.4 % (24.0-44.0); MEAN CORPUSCULAR HEMOGLOBIN 28.3 pg (28.0-32.0); MEAN CORPUSCULAR HGB CONC 33.7 g/dL (32.0-36.0); MEAN PLATELET VOLUME 9.3 fL (9.4-12.3); MONOCYTES ABSOLUTE AUTO 0.46 K/uL (0.00-0.80); MONOCYTES PERCENT AUTO 6.8 % (0.0-8.0); NEUTROPHILS ABSOLUTE AUTO 4.18 K/uL (1.80-7.70); NEUTROPHILS PERCENT AUTO 61.5 % (41.0-71.0); PLATELET COUNT,PLT 265 K/uL (150-400); RED BLOOD CELL COUNT 5.01 M/uL (4.10-5.30)
[2025-02-25] MEDS ORDERED: Sodium Chloride 0.9% 2.5 ML Syringe FLUSH PRN (08:54)
[2025-02-25] MEDS ORDERED: Sodium Chloride 0.9% 10 ML Syringe FLUSH PRN (08:54)
[2025-02-25] MEDS ORDERED: Sodium Chloride 0.9% 20 ML SDV IV PRN (08:54)
[2025-02-25] MEDS: Sodium Chloride 0.9% 1,000 ML IV ONE (09:04)
[2025-02-25] MEDS: Ketorolac 30 MG/ML SDV IVPUSH ONE ×2 (09:04→11:49)
[2025-02-25 09:29] LABS: A/G RATIO 1.2 (0.9-1.6); ALANINE AMINOTRANSFERASE,ALT 30 IU/L (14-63); ALKALINE PHOSPHATASE 123 U/L (46-116); ASPARTATE AMNIOTRANSFERASE,AST 20 IU/L (15-37); BILIRUBIN TOTAL 0.8 mg/dL (0.2-1.0); BLOOD UREA NITROGEN,BUN 13 mg/dL (7.0-18.0); CALCIUM 9.6 mg/dL (8.5-10.1); CARBON DIOXIDE,CO2 30.2 mmol/L (21.0-32.0); CHLORIDE,CL 102 mmol/L (98-107); CREATININE 0.9 mg/dL (0.6-1.0); EST CRCL DRUG DOSING (CG) 52.24 mL/min; GLUCOSE RANDOM 107 mg/dL (74-106); LIPASE 31 U/L (16-77); MAGNESIUM 2.1 mg/dL (1.8-2.4); POTASSIUM,K 3.8 mmol/L (3.5-5.1); PROTEIN TOTAL,TP 7.4 g/dL (6.4-8.2); SODIUM,NA 140 mmol/L (136-145)
[2025-02-25 09:42] LABS: APPEARANCE,URINE CLEAR; BILIRUBIN,URINE NEGATIVE (NEGATIVE); COLOR,URINE YELLOW; GLUCOSE,URINE NEGATIVE (NEGATIVE); KETONES,URINE NEGATIVE (NEGATIVE); LEUKOCYTE ESTERASE,URINE NEGATIVE (NEGATIVE); NITRITE,URINE NEGATIVE (NEGATIVE); OCCULT BLOOD,URINE NEGATIVE (NEGATIVE); PH,URINE 5.5 (5.0-8.0); PROTEIN,URINE NEGATIVE (NEGATIVE); UROBILINOGEN,URINE 0.2 EU/dL (<2.0)
[2025-02-25 09:51] LABS: ESTIMATED GFR 71 mL/min (>60)
[2025-02-25] MEDS: Iopamidol 755 MG/ML 500 ML Multipack Bottle IVPUSH STA (10:03)
[2025-02-25] MEDS: Cyclobenzaprine 10 MG Tab PO ONE (11:49)
[2025-02-25 11:55] VITALS: BP 158/81; PULSE 58
== END 2025-02-25 11:55 | disposition home or self-care (01) ==
LOC: MW.ED 08:31
DX: R10.12 Left upper quadrant pain (principal); E78.00 Pure hypercholesterolemia, unspecified; I10 Essential (primary) hypertension; E11.9 Type 2 diabetes mellitus without complications; Z79.899 Other long term (current) drug therapy; Z75.3 Unavailability and inaccessibility of health-care facilities; Z86.79 Personal history of other diseases of the circulatory system
CPT/HCPCS: 36415; 71045; 74177; 80053; 81003; 83690; 83735; 84484; 85025; 93005; 96361; 96374; 96376; 99284; A9270; J1885; J7030; Q9967; 93010